=== PATIENT | female | born 1990 | race Caucasian/White ===

== ENCOUNTER 2025-05-16 16:32 | Emergency (ER) | payer BC, SELFPAY ==
[2025-05-16 16:32] VITALS: BP 135/94; PULSE 113; RESP 16; TEMP 36.8; O2SAT 100; BMI 29.1
--- NOTE | 2025-05-16 16:53 | ED.VIS.LOWEX ---
HPI History of Present Illness HPI Narrative: Patient presents with right ankle injury that occurred today. Patient states she inverted her ankle. Patient states she felt a pop. Patient states she noted some swelling immediately. Patient states that her pain is worse with elevation. Patient admits to some intermittent tingling. Patient describes her pain as burning sensation. Patient denies any head injury or loss of consciousness. Patient denies any other injuries. Patient states she took an oxycodone prior to arrival which is helping. Chief Complaint: Lower Extremity Injury Informant: patient Occured/Mechanism Comment: Inversion injury Onset/Context/Timing Onset: Today Context: Sudden Onset Timing: Continuous Quality of Pain: Burning Location: Right ankle Worsened by: Elevation Relieved by: Oxycodone Associated Symptoms Associated Symptoms: Positive for Parasthesia (Intermittent tingling); Negative for Weakness or Loss of Funtion [facility] Medical History (Updated 05/16/25 @ 19:[address] Eduardo Rico DO) ADHD Home Medications ?Medication ?Instructions ?Recorded ?Last Taken ?Type dextroamphetamine-amphetamine ER 25 mg PO DAILY 05/08/16 Unknown History 25 mg 24hr capsule,extend release (Adderall XR) prednisone 10 mg tablet 10 mg PO UD #33 tabs 05/08/16 Unknown Rx Allergy/AdvReac Type Severity Reaction Status Date / Time No Known Allergies Allergy Verified 05/16/25 16:34 Surgical History (Updated 05/16/25 @ 16:[address] Eduardo Rico DO) History of section Social History Smoking Status: Never smoker ROS ROS ED Constitutional Constitutional ED: Denies chills or fever(s) Eyes Eyes: Denies blurry vision or change in vision ENT ENT ED: Denies rhinorrhea or sore throat Cardiovascular Cardiovascular: Denies chest pain or palpitations Respiratory/Chest Respiratory/Chest: Denies cough or dyspnea Gastrointestinal Gastrointestinal: Denies nausea or vomiting Genitourinary Genitourinary ED: Denies dysuria or hematuria Musculoskeletal Musculoskeletal: Denies back pain or neck pain Integumentary Denies abscess or rash Neurologic Neurologic: Denies headache(s) or weakness Allergic/Immunologic Allergic/Immunologic ED: Denies mouth swelling or urticaria EXAM Physical Exam Const Vital Signs: 05/16/25 16:32 Temperature 98.3 F Temperature Source Oral Pulse Rate 113 H Respiratory Rate 16 Blood Pressure 135/94 H Blood Pressure Mean 107 Pulse Ox 100 Oxygen Delivery Method Room Air Positive well nourished and well developed General Appearance ED: well developed and NAD HEENT Reports moist mucous membranes normocephalic and atraumatic Neck full ROM and supple Extremity Extremity Narrative: There is tenderness, edema, and ecchymosis over the lateral aspect of the right ankle. There is no obvious deformity noted. Range of motion is limited in all motions of the right ankle secondary to pain. Pedal pulses are equal bilaterally. Capillary refills less than 2 seconds in all digits. Sensation was intact to light touch in all digits. Strength is 5/5 bilaterally in the lower extremities. There is no tenderness over the fifth metatarsal. There is no tenderness over the proximal fibula. Neuro oriented x3, CN's II-XII intact bilaterally, moves all extremities and no sensory deficits noted Sensorium / Orientation: alert Motor Exam: strength 5/5 throughout Psych mental status grossly normal MDM MDM MDM Narrative Medical decision making narrative: Differential diagnosis includes fracture, sprain, and contusion. X-rays of the right ankle will be obtained to assess for fracture. Radiography Diagnostic Testing: Clinical Impression(s) from Imaging Studies Ankle X-Ray 05/16/25 17:30 IMPRESSION: No acute fracture or dislocation. No significant degenerative changes. Scattered sclerosis versus sclerotic lesions throughout the distal tibia and fibula and calcaneus. No acute soft tissue abnormalities. No radiographic foreign body. Reading Location: [facility] X-rays of the right ankle were obtained. There are 3 views. On my independent interpretation, there is no acute fracture. There is mild soft tissue swelling noted. Radiologist also interpreted the x-rays and agrees. Treatment and Re-Evaluation Narrative: Patient was advised of her findings. Patient was given an Aircast. Patient was instructed to ice and elevate the right ankle. Patient was instructed take Tylenol or ibuprofen as needed for pain. Patient was instructed to follow-up with her primary care physician in 5 to 7 days. Patient was instructed to return if worse in any way. Patient understood and was agreeable with the plan. All questions were answered. Discharge Plan Triage Chief Complaint: Lower Extremity Injury ED Provider: Schwiger,Eduardo Dx/Rx/DC Orders Clinical Impression: Right ankle sprain, ADHD Instructions: ED Ankle Sprain (Adult) Prescriptions: No Action dextroamphetamine-amphetamine [Adderall XR] 25 MG capsule,extended release 24hr 25 mg PO DAILY prednisone 10 MG tablet 10 mg PO UD Qty: 33 0RF Rx Instructions: Take 4 tablets daily for 3 days, then 3 daily for 3 days, then 2 daily for 3 days, then 1 a day for 3 days then 1 QOD for 3 doses. Primary Care Provider: RADHA JACK Referrals: RADHA JACK [Other] - 5-7 Days [facility] Doctor,Out of [Non-Staff] - Print Language: Romansh Disposition Disposition: Home, Self Care
--- OUTSIDE RECORDS SUMMARY | 2025-05-16 17:07 | XMS RPT_ITS | CCD ---
Author Organization [facility] Care Team Providers Care Blood Or Blood Bank Technician Name Role Phone Serg Garibay Primary Care Provider Mel Nicholas MD Primary Care Provider MEL NICHOLAS Attending Unavailable SERG GARIBAY Primary Care Unavailable Serg Garibay MD Primary Care Provider RADHA DUDLEY Unavailable SERG GARIBAY Primary Care Unavailable Serg Garibay MD Primary Care Provider Radha Dudley MD Primary Care Provider Medications Current Medications Medication Drug Class(es) Dates Sig (Normalized) Sig (Original) acetaminophen 325 mg oral tablet (7 sources) Start: 05-11-2022 650 mg, Oral, EVERY 6 HOURS PRN, Starting on Sat05/11/22 at 0957, Until Discontinued, Pain Mild (1-3) Give in addition to any other pain medication ordered at same time for any pain indication. &nb sp;Maximum dose of acetaminophen is 4000mg from all sources in 24 hours. Alternate ibuprofen and acetaminophen every 3 hours. Start: 11-23-2019 take 325 mg by mouth every four hours 325 mg, Oral, EVERY 4 HOURS, First dose on 11/23/19 at 2000 Maximum dose of acetaminophen is 4000 mg from all sources in 24 hours. End: 05-12-2022 acetaminophen (TYLENOL) 500 MG tablet Take 500 mg by mouth as needed 0 05/12/2022 Discontinued (Stop Taking at Discharge) albuterol 0.83 mg/ml inhalation solution (2 sources) beta2-Adrenergic Agonist Start: 03-05-2024 End: 04-04-2024 albuterol (2.5 MG/3ML) 0.083% nebulizer solution Indications: Wheezing Take 3 mL (2.5 mg) by nebulization in the morning and 3 mL (2.5 mg) at noon and 3 mL (2.5 mg) in the evening. 270 mL 0 03/05/2024 04/04/2024 Active Start: 03-05-2024 End: 04-04-2024 take 2 puff(s) by inhalation every six hours as needed for wheezing albuterol 108 (90 Base) MCG/ACT inhaler Indications: Wheezing Inhale 2 puffs every 6 hours as needed for wheezing. 18 g 0 03/05/2024 04/04/2024 Active 24 hr amphetamine aspartate 5 mg / amphetamine sulfate 5 mg / dextroamphetamine saccharate 5 mg / dextroamphetamine sulfate 5 mg extended release oral capsule (20 sources) Central Nervous System Stimulant Start: 05-02-2023 End: 05-26-2023 take 1 capsule by mouth every twenty-four hours in the morning amphetamine-dextroamphetamine XR (Adderall XR) 20 MG 24 hr capsule Indications: Attention deficit hyperactivity disorder (ADHD), unspecified ADHD type Take 1 capsule (20 mg) by mouth in the morning. 30 capsule 0 05/27/2023 Active Start: 02-25-2023 End: 04-28-2023 take 1 capsule by mouth every twenty-four hours in the morning amphetamine-dextroamphetamine XR (Addera ll XR) 20 MG 24 hr capsule Indications: Attention deficit hyperactivity disorder (ADHD), unspecified ADHD type Take 1 capsule (20 mg) by mouth in the morning. 30 capsule 0 03/26/2023 04/28/2023 Discontinued (Reorder) Start: 12-28-2022 End: 01-27-2023 take 1 capsule by mouth once daily amphetamine-dextroamphetamine XR (ADDERA LL XR) 20 mg 24 hr capsule Indications: ADHD (attention deficit hyperactivity disorder), inattentive type Take 1 capsule by mouth once daily for 30 days. Do not start before December 28, 2022. 30 capsule 0 12/28/2022 01/27/2023 Active Start: 07-06-2022 End: 01-27-2023 take 1 capsule by mouth in the morning, then take 1 capsule by mouth every twenty-four hours amphetamine-dextroamphetamine XR (Addera ll XR) 20 MG 24 hr capsule Take 20 mg by mouth in the morning. 0 07/06/2022 01/27/2023 Active Start: 07-06-2022 End: 12-26-2022 take 1 capsule by mouth once daily amphetamine-dextroamphetamine XR (ADDERA LL XR) 20 mg 24 hr capsule Indications: ADHD (attention deficit hyperactivity disorder), inattentive type Take 1 capsule by mouth once daily for 30 days. 30 capsule 0 11/23/2022 12/26/2022 Discontinued Comment on above: Take 1 capsule by mo ut once daily for 7 days. Take 1 capsule by mo uth once daily for 30 days. Take 1 capsule by mo uth once daily for 30 days. Do not start before September 21, 2022. Take 1 capsule by mo ut once daily for 30 days. Do not start before October 21, 2022. Take 1 capsule by mo ut once daily for 30 days. Do not start before December 28, 2022. 12 hr dextromethorphan hydrobromide 30 mg / guaiFENesin 600 mg extended release oral tablet (1 source) Uncompetitive R-ojftdd-N-aspartate Receptor Antagonist, Sigma-1 Agonist Start: 03-05-20 End: 03-15-20 24 take 1 tablet by mouth in the morning, then take 1 tablet by mouth every twelve hours in the evening dextromethorphan-g uaiFENesin (Mucinex DM) 30-600 MG 12 hr tablet Indications: Subacute cough , Acute bronchitis, unspecified organism Take 1 tablet by mouth in the morning and 1 tablet in the evening. Do all this for 10 days. Do not crush, chew, or split.. 20 tablet 0 03/05/2024 03/15/2024 Active docusate sodium 100 mg oral capsule (3 sources) Start: 05-11-20 22 take 1 capsule by mouth twice daily docusate sodium (COLACE) 100 mg capsule Take 1 capsule by mouth 2 times daily 60 capsule 3 05/12/2022 Active Start: 11-23-2019 take 100 mg by mouth twice daily as needed for constipation 100 mg, Oral, 2 TIMES DAILY PRN, Constipation, Starting 11/23/19 at 1935 Do not crush or break. doxycycline hyclate 100 mg oral capsule (1 source) Tetracycline-class Drug Start: 03-05-2024 End: 03-15-2024 doxycycline (Vibramycin) 100 MG capsule Indications: Subacute cough , Acute bronchitis, unspecified organism Take 1 capsule (100 mg) by mouth 2 times daily for 10 days. Take with at least 8 ounces (large glass) of water, do not lie down for 30 minutes after 20 capsule 0 03/05/2024 03/15/2024 Active ferrous sulfate 325 mg oral tablet (3 sources) Start: 05-11-2022 take 1 tablet by mouth twice daily ferrous sulfate (IRON 325) 325 (65 Fe) MG tablet Take 1 tablet by mouth 2 times daily 180 tablet 1 05/12/2022 Active Start: 11-23-2019 take 325 mg by mouth twice daily at mealtime 325 mg, Oral, 2 TIMES DAILY WITH MEALS, First dose on Sat11/23/19 at 2000 Start if Hgb less than 10. HYDROmorphone (DILAUDID) injection 0.25 mg (1 source) Start: 11-24-2019 HYDROmorphone (DILAUDID) injection 0.25 mg ibuprofen 600 mg oral tablet (2 sources) Nonsteroidal Anti-inflammatory Drug Start: 05-11-2022 take 1 tablet by mouth every six hours as needed for pain ibuprofen (ADVIL;MOTRIN) 600 MG tablet Take 1 tablet by mouth every 6 hours as needed for Pain 60 tablet 0 05/12/2022 Active lanolin 1000 mg/ml topical cream (2 sources) Start: 05-11-2022 Topical, EVERY 1 HOUR PRN, Dry Skin, nipple discomfort, Starting on Sat05/11/22 at 0957, Start: 11-23-2019 Topical, EVERY 1 HOUR PRN, Dry Skin, nipple discomfort, Starting 11/23/19 at 1935, Mom to be Belts MISC (1 source) Start: 09-07-2019 Mom to be Belt s MISC by Does not apply route 1 each 0 09/07/2019 Active 1 ml nalbuphine hydrochloride 10 mg/ml injection (1 source) Opioid Agonist/Antagonist Start: 11-23-2019 nalbuphine (NUBAIN) injection 5 mg 1 ml naloxone hydrochloride 0.4 mg/ml injection (1 source) Opioid Antagonist Start: 11-23-2019 naloxone (NA RCAN) injection 0.4 mg oxyCODONE hydrochloride 5 mg oral tablet (4 sources) Opioid Agonist Start: 05-12-2022 End: 05-17-2022 oxyCODONE (ROXICODONE) 5 MG immediate release tablet Indications: S/P section Take 1 tablet by mouth every 6 hours as needed for Pain for up to 5 days. Intended supply: 5 days. Take lowest dose possible to manage pain 20 tablet 0 05/12/2022 05/17/2022 Active Start: 05-11-2022 oxyCODONE (RADHA ICODONE) immediate release tablet 5 mg Start: 11-24-2019 End: 12-01-2019 take 1 tablet by mouth every six hours as needed for pain oxyCODONE (ROXICODONE) 5 MG immediate release tablet Indications: S/P Take 1 tablet by mouth every 6 hours as needed for Pain for up to 7 days. 28 tablet 0 11/24/2019 12/01/2019 Active Start: 11-24-2019 oxyCODONE (RADHA ICODONE) immediate release tablet 5 mg oxytocin (PITOCIN) 30 units in 500 mL infusion (2 sources) Start: 11-23-2019 125 mL/hr, Int ravenous, at 125 mL/hr, CONTINUOUS, Starting 11/23/19 at 1730 For Post Use Only To follow initial bolus immediately after delivery. Verify patient received oxytocin 250cc bolus at delivery followed by an additional 250ccover 1 hour (250cc/hr). Give after delivery of placenta. Start: 11-23-2019 End: 11-23-2019 250 mL/hr, Intravenous, at 2 50 mL/hr, CONTINUOUS, Starting 11/23/19 at 1345 For Post Use Only Give after delivery of placenta. Oxytocin 250cc is administered as an IV bolus at delivery followed by an additional 250cc over 1 hour. predniSONE 20 mg oral tablet (1 source) Start: 03-05-2024 End: 03-10-2024 take 1 tablet by mouth once daily predniSONE (Deltasone) 20 MG tablet Indications: Wheezing Take 1 tablet (20 mg) by mouth daily for 5 days. 5 tablet 0 03/05/2024 03/10/2024 Active MV & Min w/FA-DHA ( GUMMIES PO) (1 source) MV & Mi n w/FA-DHA ( GUMMIES PO) Take by mouth 0 Active Vit w/Me-Wzxvijnbi-NP (PNV PO) (4 sources) Vit w/Lu-Ffpolqigu-SR (PNV PO) Take by mouth 0 Active 1000 ml sodium chloride 9 mg/ml injection (5 sources) Start: 05-11-2022 IntraVENous, a t 5-250 mL/hr, PRN, if patient receiving piggyback infusions and maintenance fluids are not ordered OR KVO fluids to protect IV site / prevent frequent line interruptions/ long duration, Starting on Sat05/11/22 at 0957 For piggyback infusion, administer at same rate as piggyback for a total of 25 mL. Enter 25 mL into dose field and piggyback rate into rate field of order. If piggyback is infusing at a rate less than 100 mL/hr, enter 25 mL into dose field and 100 mL/hr into rate field of order. For KVO fluids, enter rate of 20 mL/hr or less into rate field of order. Start: 05-11-2022 take 1 dose intraven ously twice daily 5-40 mL, IntraVENous, EVERY 12 HOURS SCHEDULED (2 times per day), First dose on Sat05/11/22 at 1015, Until Discontinued For Line Patency: Peripheral IV = 5 mL; Midline or Central Line = 10 mL/lumen. If following IV push medication, administer flush at same rate as the IV push. Flush volume is determined by type of infusion therapy being given. For non-viscous solutions use: Peripheral IV = 5 mL Midline or Central Line = 10 mL/lumen For viscous solutions (i.e. blood components, parenteral nutrition, contrast media, or after obtaining blood sample) use: Peripheral IV = 10 mL Midline or Central Line = 20 mL/lumen Start: 05-11-2022 take 5-40 mL intrave nously once as needed 5-40 mL, IntraVENous, PRN, Starting on Sat05/11/22 at 0957, Until Discontinued, Line Care, After every IV line use For Line Patency: Peripheral IV = 5 mL; Midline or Central Line = 10 mL/lumen. If following IV push medication, administer flush at same rate as the IV push. Flush volume is determined by type of infusion therapy being given. For non-viscous solutions use: Peripheral IV = 5 mL Midline or Central Line = 10 mL/lumen For viscous solutions (i.e. blood components, parenteral nutrition, contrast media, or after obtaining blood sample) use: Peripheral IV = 10 mL Midline or Central Line = 20 mL/lumen Start: 11-23-2019 10 mL, Intrave nous, EVERY 12 HOURS SCHEDULED (2 times per day), First dose on Sat11/23/19 at 2100, Start: 11-23-2019 take 10 mL intravenously once 10 mL, Intravenous, PRN, Line Care, Starting Sat11/23/19 at 1935 After every IV line use Completed/Discontinued Medications Medication Drug Class(es) Dates Sig (Normalized) Sig (Original) acetaminophen 325 mg / butalbital 50 mg / caffeine 40 mg oral tablet (12 sources) Barbiturate, Central Nervous System Stimulant, Methylxanthine Start: 08-21-2021 End: 12-26-2022 take 1 tablet by mouth every six hours as needed for headache and headache acetaminophen 325 mg-caffeine 40 mg-butalbital 50 mg (FIORICET) per tablet Indications: Headache, unspecified headache type Take 1 tablet by mouth every 6 hours as needed. 40 tablet 0 08/21/2021 12/26/2022 Discontinued Comment on above: Take 1 tablet by carly every 6 hours as needed. calcium chloride 0.0014 meq/ml / potassium chloride 0.004 meq/ml / sodium chloride 0.103 meq/ml / sodium lactate 0.028 meq/ml injectable solution (4 sources) Start: 05-11-2022 End: 05-11-2022 1,000 mL, IntraVENous, at 1,000 mL/hr, Administer over 1 Hours, ONCE, On Sat05/11/22 at 0445, For 1 dose Labor and Delivery. &nb sp;Administer bolus one hour prior to surgery. Labor and Delivery (Signed and Held) Start: 05-11-2022 End: 05-11-2022 IntraVENous, at 125 mL/hr, C ONTINUOUS, Starting on Sat05/11/22 at 0445, Labor and Delivery (Signed and Held) Start: 11-23-2019 End: 11-23-2019 1,000 mL, Intravenous, at 1, 000 mL/hr, Administer over 1 Hours, ONCE, 11/23/19 at 1345, For 1 dose Labor and Delivery. Administer bolus one hour prior to surgery. Labor and Delivery (Signed and Held) Start: 11-23-2019 End: 11-23-2019 Intravenous, at 125 mL/hr, C ONTINUOUS, Starting Sat11/23/19 at 1345, Labor and Delivery (Signed and Held) ceFAZolin 2000 mg injection (2 sources) Cephalosporin Antibacterial Start: 05-11-2022 End: 05-11-2022 2,000 mg, IntraVENous, ONCE, 1 dose, On Sat05/11/22 at 0445 Antimicrobial Indications: Surgical Prophylaxis Labor and Delivery (Signed and Held) Start: 11-23-2019 End: 11-23-2019 2 g, Intravenous, ONCE, 1 do se, 11/23/19 at 1345, Labor and Delivery (Signed and Held) citric acid 66.8 mg/ml / sodium citrate 100 mg/ml oral solution (2 sources) Calculi Dissolution Agent, Anti-coagulant Start: 05-11-2022 End: 05-11-2022 take 1 dose by mouth once 30 mL, Oral, ONCE, 1 dose, On Sat05/11/22 at 0245 Give prior to epidural placement. Labor and Delivery Start: 11-23-2019 End: 11-23-2019 take 30 mL by mouth once 30 mL, Oral, ONCE, Mon 11/23 at 1315, For 1 dose Give prior to epidural placement. Labor and Delivery 1 ml diphenhydrAMINE hydrochloride 50 mg/ml cartridge (6 sources) Histamine-1 Receptor Antagonist Start: 05-11-2022 25 mg, IntraVENous, EVERY 6 HOURS PRN, Starting on Sat05/11/22 at 0957, Until Discontinued, Itching, Hives, Start: 11-23-2019 25 mg, Intrave nous, EVERY 6 HOURS PRN, Itching, Hives, Starting 11/23/19 at 1935, take 1 tablet by carly th once daily as needed diphenhydrAMINE (BENADRYL) 25 MG tablet Take 25 mg by mouth nightly As needed 0 Active 0.6 ml enoxaparin sodium 100 mg/ml prefilled syringe (2 sources) Low Molecular Weight Heparin Start: 05-11-2022 inject 60 mg by subcutaneous injection once daily 60 mg, SubCUTAneous, DAILY, First dose on Sat05/11/22 at 2000, Until Discontinued Indication of Use: Prophylaxis-DVT/PE Start: 11-24-2019 enoxaparin (LO VENOX) injection 60 mg 1 ml ketorolac tromethamine 30 mg/ml cartridge (2 sources) Nonsteroidal Anti-inflammatory Drug, Cyclooxygenase Inhibitor Start: 05-11-2022 End: 05-12-2022 take 1 dose intravenously once daily Ketorolac is contraindicated in patients with advanced renal impairment and in patients at risk of renal failure due to volume depletion. For 65 years of age and older OR weight less than 50 kg, use 15 mg IV every 6 hours; MAX dose: 60 mg/day. Dose greater than 30 mg must be administered via intramuscular route. Do not administer for more than 5 days. 30 mg, IntraVENous, EVERY 6 HOURS, 4 doses, First dose on Sat05/11/22 at 1430, Last dose on Sat05/12/22 at 0830 Discontinue when able to take PO ibuprofen. Start: 05-11-2022 End: 05-11-2022 inject 1 dose by intramuscular injection once daily Ketorolac is contraindicated in patients with advanced renal impairment and in patients at risk of renal failure due to volume depletion. For 65 years of age and older OR weight less than 50 kg, use 15 mg IV every 6 hours; MAX dose: 60 mg/day. Dose greater than 30 mg must be administered via intramuscular route. Do not administer for more than 5 days. 60 mg, IntraMUSCular, ONCE, 1 dose, On Sat05/11/22 at 0815 Postop in recovery room Post Delivery 2 ml metoclopramide 5 mg/ml prefilled syringe (1 source) Dopamine-2 Receptor Antagonist Start: 05-11-2022 End: 05-11-2022 metoclopramide (REGLAN) injection 10 mg Start: 05-11-2022 End: 05-11-2022 metoclopramide (REGLAN) inje ction 10 mg 2 ml ondansetron 2 mg/ml injection (2 sources) Serotonin-3 Receptor Antagonist Start: 05-11-2022 4 mg, IntraVENous, EVERY 6 HOURS PRN, Starting on Sat05/11/22 at 0957, Until Discontinued, Nausea, Start: 11-23-2019 4 mg, Intraven ous, EVERY 6 HOURS PRN, Nausea, Starting Sat11/23/19 at 1935, vitamin 27-1 MG tablet 1 tablet (2 sources) Start: 05-11-2022 take 1 tablet by mouth once daily 1 tablet, Oral, DAILY, First dose on Sat05/11/22 at 1015, Until Discontinued Begin when normal bowel activity resumes. Start: 11-23-2019 take 1 tablet by carly th once daily 1 tablet, Oral, DAILY, First dose on Sat11/23/19 at 2000 Begin when normal bowel activity resumes. simethicone 80 mg chewable tablet (2 sources) Start: 05-11-2022 take 80 mg by mouth every six hours as needed 80 mg, Oral, EVERY 6 HOURS PRN, Starting on Sat05/11/22 at 0957, Until Discontinued, Cramping, Flatulence, Start: 11-23-2019 take 80 mg by mouth every six hours as needed 80 mg, Oral, EVERY 6 HOURS PRN, Cramping, Flatulence, Starting Sat11/23/19 at 1935, Problems Active Problems Problem Classification Problem Date Documented Date Episodic/Chronic Acute bronchitis (1 source) Acute bronchitis; Translations: [Acute bronchitis, unspecified] 03-05-2024 Episodic Attention-deficit conduct and disruptive behavior disorders (20 sources) Attention deficit hyperactivity disorder, predominantly inattentive type; Translations: [Attention-deficit hyperactivity disorder, predominantly inattentive type] Onset: 08-31-2018 05-25-2019 Chronic Attention-deficit, conduct, and disruptive behavior disorders (6 sources) Attention deficit hyperactivity disorder; Translations: [Attention-deficit hyperactivity disorder, unspecified type] Chronic Attention-deficit, conduct, and disruptive behavior disorders (2 sources) Attention-deficit hyperactivity disorder, unspecified type; Translations: [Attention-deficit hyperactivity disorder, unspecified type] Onset: 12-28-2022 Chronic Coagulation and hemorrhagic disorders (20 sources) Platelet storage pool defect; 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] Onset: 06-10-2019 Resolved: 01-04-2020 05-25-2019 Chronic Essential hypertension (1 source) Transient hypertension 11-24-2019 Chronic Hypertension complicating ; childbirth and the puerperium (4 sources) Hypertension AND/OR vomiting complicating childbirth AND/OR puerperium Onset: 11-19-2019 Chronic Other complications of (2 sources) Obesity; Translations: [Obesity complicating , unspecified trimester] Onset: 11-16-2021 Chronic Other complications of (2 sources) Uterine size for dates discrepancy; Translations: [Uterine size-date discrepancy, third trimester] Onset: 03-16-2022 Episodic Other complications of (2 sources) Disease caused by 2019-nCoV; Translations: [Other viral diseases complicating , second trimester] Onset: 01-05-2022 Episodic Other lower respiratory disease (1 source) Wheezing; Translations: [Wheezing] 03-05-2024 Episodic Other lower respiratory disease (1 source) Cough; Translations: [Subacute cough] 03-05-2024 Episodic Unclassified (6 sources) Patient encounter status; Translations: [ care, antepartum] Onset: 06-03-2019 06-03-2019 Past or Other Problems Problem Classification Problem Date Documented Da te Episodic/Chronic Abdominal pain (5 sources) Abdominal pain in ; Translations: [Other specified related conditions, second trimester] Resolved: 10-07-2019 09-07-2019 Episodic Cardiac dysrhythmias (5 sources) Tachycardia; Translations: [Tachycardia, unspecified] Onset: 10-07-2019 Resolved: 01-04-2020 10-07-2019 Episodic Hypertension complicating ; childbirth and the puerperium (1 source) Hypertension AND/OR vomiting complicating childbirth AND/OR puerperium; Translations: [Gestational [-induced] hypertension without significant proteinuria, unspecified trimester] Onset: 11-19-2019 Resolved: 01-04-2020 01-04-2020 Episodic Malposition; malpresentation (3 sources) Breech presentation; Translations: [Maternal care for breech presentation, not applicable or unspecified] Resolved: 11-16-2021 Episodic Other circulatory disease (8 sources) Transient hypertension; Translations: [Elevated blood-pressure reading, without diagnosis of hypertension] Onset: 11-24-2019 11-24-2019 Episodic Other complications of ; puerperium affecting management of mother (2 sources) Indication for care AND/OR intervention in labor AND/OR delivery Onset: 11-23-2019 Episodic Other complications of ; puerperium affecting management of mother (1 source) Delivery finding; Translations: [Complication of labor and delivery, unspecified] Onset: 11-23-2019 Resolved: 11-16-2021 11-16-2021 Episodic Other complications of (9 sources) Reduced movement; Translations: [Decreased movements, second trimester, not applicable or unspecified] Resolved: 11-19-2019 09-07-2019 Episodic Other inflammatory condition of skin (11 sources) Itching ; Translations: [Pruritus, unspecified] Onset: 10-23-2019 10-23-2019 Episodic Other and delivery including normal (5 sources) Patient encounter status; Translations: [Encounter for supervision of normal , unspecified, unspecified trimester] Onset: 06-03-2019 Resolved: 01-04-2020 Episodic Other screening for suspected conditions (not mental disorders or infectious disease) (2 sources) Encounter for screening for lipoid disorders; Translations: [Encounter for screening for lipoid disorders] Onset: 12-28-2022 Episodic Polyhydramnios and other problems of amniotic cavity (1 source) Polyhydramnios; Translations: [Polyhydramnios, third trimester, not applicable or unspecified] Onset: 03-30-2022 Resolved: 04-27-2022 04-27-2022 Episodic Results Test Name Value Interpretation Reference Range Facility CBC (H/H, RBC, INDICES, WBC, PLT)on 04-03-2025 HEMATOCRIT Normal [facility] Comment on above: Performed By: #### 1 [id number], [id number], 899, 1759 #### [facility] [address], [address] [place] [id number] Head Bucker: Will Clayton MD HEMOGLOBIN Normal [facility] Comment on above: Performed By: #### 1 [id number], [id number], 899, 1759 #### [facility] [address], [address] [place] [id number] Head Bucker: Will Clayton MD MCH Normal [facility] Comment on above: Performed By: #### 1 [id number], 66901, 899, 1759 #### [facility] of [address], [address] [place] [address] Head Bucker: Will Clayton MD [facility] Normal [facility] Comment on above: Performed By: #### 1 [id number], [id number], 899, 1759 #### [facility] of [place] [address] [place] [address] Head Bucker: Will Clayton MD [facility] Normal [facility] Comment on above: Performed By: #### 1 [id number], 47217, 899, 1759 #### [facility] of [place] [address] Head Bucker: Will Clayton MD MPV Normal [facility] Comment on above: Performed By: #### 1 [id number], 40658, 899, 1759 #### [facility] of [place] [address] Head Bucker: Will Clayton MD PLATELET COUNT Normal [facility] Comment on above: Performed By: #### 1 [id number], [id number], 899, 1759 #### [facility] of [place] [address] Head Bucker: Will Clayton MD W Normal [facility] Comment on above: Performed By: #### 1 [id number], 97709, 899, 1759 #### [facility] of [place] [address] [place] [address] Head Bucker: Will Clayton MD RED BLOOD CELL COUNT [facility] Comment on above: Performed By: #### 1 [id number], 70939, 899, 1759 #### [facility] of [place] [address] [place] [address] Head Bucker: Will Clayton MD WHITE BLOOD CELL COUNT [facility] Comment on above: Performed By: #### 1 [id number], 51153, 899, 1759 #### [facility] of [address], [address] [place] [address] Head Bucker: Will Clayton MD [facility] 04-03-2025 Albumin [Mass/Vol] 4.7 g/dL Normal 3.6-5.1 [facility] Comment on above: Performed By: #### 1 [id number], 54153, 899, 1759 #### [facility] of [address], [address] [place] [address] Head Bucker: Will Clayton MD Albumin/Globulin [Mass ratio] 1.9 {ratio} Normal 1.0-2.5 [facility] Comment on above: Performed By: #### 1 [id number], 14139, 89, 1759 #### [facility] of [address], [address] [place] [address] Head Bucker: Will Clayton MD ALP [Catalytic activity/Vol] 48 U/L Normal 31-125 [facility] Comment on above: Performed By: #### 1 4852, 69218, 89, 1759 #### [facility] of [address], [address] [place] [address] Head Bucker: Will Clayton MD ALT [Catalytic activity/Vol] 7 U/L Normal 6-29 [facility] Comment on above: Performed By: #### 1 4852, 17414, 89, 1759 #### [facility] of [place] [address] Head Bucker: Will Clayton MD AST [Catalytic activity/Vol] 8 U/L Low 10-30 [facility] Comment on above: Performed By: #### 1 4852, 36472, 89, 1759 #### [facility] of [place] [address] Head Bucker: Will Clayton MD Bilirubin [Mass/Vol] 0.3 mg/dL Normal 0.2-1.2 [facility] Comment on above: Performed By: #### 1 4852, 96521, 899, 1759 #### [facility] of [place] [address] Head Bucker: Will Clayton MD BUN/CREATININE RATIO SEE NOTE: Normal 6-22 [facility] Comment on above: Result Comment: Not Reported: BUN and Creatinine are within reference range. Performed By: #### 1 4852, 50493, 899, 1759 #### [facility] [place] [address] Head Bucker: Will Clayton MD Calcium [Mass/Vol] 9.8 mg/dL Normal 8.6-10.2 [facility] Comment on above: Performed By: #### 1 4852, 85717, 89, 1759 #### [facility] [place] [address] Head Bucker: Will Clayton MD Chloride [Moles/Vol] 107 mmol/L Normal 98-[address] [facility] Comment on above: Performed By: #### 1 4852, 60324, 89, 1759 #### [facility] [place] [address] Head Bucker: Will Clayton MD CO2 [Moles/Vol] 26 mmol/L Normal 20-32 [facility] Comment on above: Performed By: #### 1 4852, 69280, 89, 1759 #### [facility] of [place] [address] Head Bucker: Will Clayton MD Creatinine [Mass/Vol] 0.76 mg/dL Normal 0.50-0.[address] [facility] [address] [facility] Comment on above: Performed By: #### 1 4852, 74763, 899, 1759 #### [facility] of [place] [address] Head Bucker: Will Clayton MD GFR/1.73 sq M.predicted among non-blacks MDRD (S/P/Bld) [Vol rate/Area] 106 mL/min/{1.73_m2} Normal > OR = 60 [facility] Comment on above: Performed By: #### 1 4852, 87161, 89, 175 #### [facility] of [place] [address] Head Bucker: Will Clayton MD Globulin (S) [Mass/Vol] 2.5 g/dL Normal 1.9-3.7 [facility] Comment on above: Performed By: #### 1 4852, 78123, 89, 175 #### [facility] of [address], [address] [place] [address] Head Bucker: Will Clayton MD Glucose [Mass/Vol] 97 mg/dL Normal 65-99 [facility] Comment on above: Result Comment: Fasting reference interval Performed By: #### 1 4852, 64309, , 175 #### [facility] of [place] [address] Head Bucker: Will Clayton MD Potassium [Moles/Vol] 4.4 mmol/L Normal 3.5-5.[address] [facility] Comment on above: Performed By: #### 1 4852, 31884, , 175 #### [facility] [place] [address] Head Bucker: Will Clayton MD Protein [Mass/Vol] 7.2 g/dL Normal 6.1-8.1 [facility] Comment on above: Performed By: #### 1 4852, 05142, , 175 #### [facility] of [place] [address] Head Bucker: Will Clayton MD Sodium [Moles/Vol] 139 mmol/L Normal 135-146 [facility] Comment on above: Performed By: #### 1 4852, 28365, 89, 175 #### [facility] of [place] [address] Head Bucker: Will Clayton MD Urea nitrogen [Mass/Vol] 12 mg/dL Normal 7-25 [facility] Comment on above: Performed By: #### 1 4852, 87617, 899, 1759 #### [facility] [address], [address] [place] [address] Head Bucker: Will Clayton MD LIPID PANEL WITH REFLEX TO Yaw PEDRO LDLon 04-03-2025 Cholesterol [Mass/Vol] 162 mg/dL Normal <200 [facility] Comment on above: Order Comment: 0; 0; 0; 0 Performed By: #### 1 4852, 88231, 899, 1759 #### [facility] [address], [address] [place] [address] Head Bucker: Will Clayton MD Cholesterol in HDL [Mass/Vol] 41 mg/dL Low > OR = 50 [facility] Comment on above: Order Comment: 0; 0; 0; 0 Performed By: #### 1 4852, 07112, 899, 1759 #### [facility] [place] [address] Head Bucker: Will Clayton MD Cholesterol in LDL [Mass/Vol] 104 mg/dL High [facility] Comment on above: Order Comment: 0; 0; 0; 0 Result Comment: Refe rence range: <100 Desirable range <100 mg/dL for primary prevention; <70 mg/dL for patients with CHD or diabetic patients with > or = 2 CHD risk factors. LDL-C is now calculated using the Humberto-Carlos calculation, which is a validated novel method providing better accuracy than the Friedewald equation in the estimation of LDL-C. Humberto GOULD et al. CONRAD. 2013;310(19): 1235-2750 (http://education.Taskmit.LOANZ/faq/HES292) Performed By: #### 1 4852, 13568, 899, 1759 #### [facility] [place] [address] Head Bucker: Will Clayton MD Cholesterol.total/Leticia sterol in HDL [Mass ratio] 4.0 {ratio} Normal <5.0 [facility] Comment on above: Order Comment: 0; 0; 0; 0 Performed By: #### 1 4852, 64821, 899, 1759 #### [facility] [address], [address] [place] [address] Head Bucker: Will Clayton MD NON HDL CHOLESTEROL 121 mg/dL (calc) Normal <130 [facility] Comment on above: Order Comment: 0; 0; 0; 0 Result Comment: For patients with diabetes plus 1 major ASCVD risk factor, treating to a non-HDL-C goal of <100 mg/dL (LDL-C of <70 mg/dL) is considered a therapeutic option. Performed By: #### 1 4852, 61333, 71, 1279 #### [facility] [address], [address] [place] [address] Head Bucker: Will Clayton MD Triglyceride [Mass/Vol] 84 mg/dL Normal <150 [facility] Comment on above: Order Comment: 0; 0; 0; 0 Performed By: #### 1 4852, 96660, 07, 5585 #### [facility] [address], [address] [place] [address] Head Bucker: Will Clayton MD TSHon 04-03-2025 TSH Qn 0.70 m[IU]/L Normal [facility] Comment on above: Result Comment: Refe rence Range > or = 20 Years 0.40-4.50 Ranges First trimester 0.26-2.66 Second trimester 0.55-2.73 Third trimester 0.43-2.91 Performed By: #### 1 4852, 22786, 99, 1464 #### [facility] [address], [address] [place] [address] Head Bucker: Will Clayton MD 36on 05-01-[address] Dudley is out of the office today. Will be back tomorrow. Message has been forwarded to him. Patient does have appt with [facility] but can not see them until May 13 [facility] 36 Reference 05/01/2023 Parachutet message Name of caller: Claire Ramos Contact phone number: [phone] Relationship to Patient: Patient Provider: Radha Dudley Practice: [facility] Chief Complaint/Reason for Call: Patient following up on 05/01/[address] Dudley be able to call in the Adderal? She is concerned it won't be called in. Please call STEVAN. Also copying Beth Medina since she sent Ummitech message to patient. Best time of day caller can be reached: any Patient advised that office/PCP has 24-48 business hours to return their call: No [facility] 36 Message released to patient as written. Patient's further questions if applicable: pt reported that she had initial consult with them yesterday but reported that it would be 2 weeks until she is able to be seen by PA for refill Were all questions from office addressed or relayed to the patient from encounter: Yes [address] 04-30-2023 36 Has she looked into any of the other psychiatry options provided? Does she have an appointment scheduled with them? [facility] [phone] also virtual visits [facility] [phone] Dr Ochoa [phone] 03-26-2023 36 Does she have an appointment with psychiatry yet? Thanks [address] 03-07-2023 36 My chart [facility] (PSYAGR) CLAIRE RAMOS ([id number]) 1990 F Date Time Provider Department 12/31/22 PABLO GILES PSYAGR During your visit today, we recorded the following information about you: Allison Canela 12/31/2022 3:24 PM Signed Called patient and left voicemail regarding scheduling referral for Neuropsychological testing. Allergies As of Date: 12/31/2022 (No Known Allergies) Date Reviewed: 12/19/2022 Reviewed by: Mel Nicholas MD - Fully Assessed Reason for Visit: Behavioral Health Appointment [7908] Prescriptions as of 12/31/2022 - amphetamine-dextroamp hetamine XR (ADDERALL XR) 20 mg 24 hr capsule Take 1 capsule by mouth once daily for 30 days. Do not start before December 28, 2022. 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] 06/10/2019 Encounter Status:Closed by ALLISON CANELA on 12/31/22 [facility] Office Visiton 12-28-2022 Follow-up visit [id number] Jammie Ramos 1990 F Date Provider Department Center 12/28/2022 [id number]-OKHYOAZARADHA DUDLEY [facility] Family History Problem Relation Age of Onset Clotting disorder Maternal Grandmother Cancer Paternal Grandfather Diabetes Father Clotting disorder Mother Eclampsia Mother Ovarian cancer Neg Hx Breast cancer Neg Hx Colon cancer Neg Hx Family Status - Relation Status Age at Maternal Grandmother Paternal Grandfather Father Mother Neg Hx Level of Service:01641 MA INITIAL PREVENTIVE MEDICINE NEW PT AGE 18-39YRS Reason for Visit and Comments: New Patient [542] - Est Care- [facility] Progress Noteon 12-28-2022 Progress Note [facility] [address] [facility] [address] [address] [facility] [address] Dept: [phone] Dept Loc: [phone] Visit type: New patient Reason for Visit: New Patient (Est Care- ) Assessment and Plan 1. Attention deficit hyperactivity disorder (ADHD), unspecified ADHD type [place] [facility] [place] - Make referral to psychiatry for further evaluation and treatment 2. Healthcare maintenance - Comprehensive metabolic panel - CBC 3. Encounter for screening for lipid disorder - Lipid panel Follow up if symptoms worsen or fail to improve. Subjective HPI Claire is a 32-year-old woman with past medical history of ADHD who presents today to [facility]. Regarding ADHD: Reports that she was diagnosed with ADHD in second grade. Has been taking medications to help control her symptoms since. Has been on Adderall for a long time. Reports that symptoms are controlled when she is taking this. She had to stop during her 2 pregnancies and reports that she struggled with her ADHD symptoms during those times. Her previous PCP retired and was her prescriber for this medication. She is now looking for a new prescriber. Discussed age appropiate vaccinations. Discussed age appropriate screening. Discussed age appropriate cancer screening. Discussed lifestyle intervention: healthy diet and exercise. Review of Systems Constitutional: Negative for chills and fever. Respiratory: Negative for cough and shortness of breath. Cardiovascular: Negative for chest pain and leg swelling. Gastrointestinal: Negative for abdominal pain, blood in stool, constipation, diarrhea, nausea and vomiting. Musculoskeletal: Negative for arthralgias and myalgias. Neurological: Negative for light-headedness and headaches. No Known Allergies Outpatient Medications Prior to Visit Medication Sig Dispense Refill amphetamine-dextroamp hetamine XR (Adderall XR) 20 MG 24 hr capsule Take 20 mg by mouth in the morning. No facility-administered medications prior to visit. 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 Endometriosis had cysts on ovarys Hypertension gestational hypertension Migraines Storage pool disease (HCC) Social History Tobacco Use Smoking status: Never Smokeless tobacco: Never Substance Use Topics Alcohol use: Not Currently Past Surgical History: Procedure Laterality Date SECTION (HISTORICAL) x 2 WISDOM TOOTH EXTRACTION 2010 Family History Problem Relation Name Age of Onset Clotting disorder Maternal Grandmother Cancer Paternal Grandfather Diabetes Father Clotting disorder Mother Eclampsia Mother Ovarian cancer Neg Hx Breast cancer Neg Hx Colon cancer Neg Hx Objective BP 125/88 (BP Location: Left arm, Patient Position: Sitting, BP Cuff Size: Large adult) Pulse 97 Temp 36.8 ?C (98.3 ?F) Ht 5' 2 (1.575 m) Wt 198 lb 6.4 oz (90 kg) LMP 12/14/2022 (Approximate) SpO2 99% BMI 36.29 kg/m? Physical Exam Constitutional: General: She is not in acute distress. Appearance: Normal appearance. Cardiovascular: Rate and Rhythm: Normal rate and regular rhythm. Pulses: Normal pulses. Heart sounds: Normal heart sounds. No murmur heard. No gallop. Pulmonary: Effort: Pulmonary effort is normal. Breath sounds: Normal breath sounds. No wheezing. Abdominal: General: Bowel sounds are normal. Palpations: Abdomen is soft. Tenderness: There is no abdominal tenderness. There is no guarding or rebound. Musculoskeletal: Right lower leg: No edema. Left lower leg: No edema. Neurological: Mental Status: She is alert. Radha Dudley MD [facility] FELICIACLAIRE ([id number]) 1990 F Date Time Provider Department 12/25/22 PABLO GILES During your visit today, we recorded the following information about you: Allison Canela 12/25/2022 11:31 AM Signed Called patient and left voicemail to schedule referral for Neuropsychology. Allergies As of Date: 12/25/2022 (No Known Allergies) Date Reviewed: 12/19/2022 Reviewed by: Mel Nicholas MD - Fully Assessed Reason for Visit: Behavioral Health Appointment [9973] Prescriptions as of 12/25/2022 - amphetamine-dextroamp hetamine XR (ADDERALL XR) 20 mg 24 hr capsule Take 1 capsule by mouth once daily for 30 days. - acetaminophen 325 mg-caffeine 40 mg-butalbital 50 mg (FIORICET) per tablet Take 1 tablet by mouth every 6 hours as needed. 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 Pt states she was advised by Dr. Nicholas to see if Dr. Garibay's office will refill amphetamine-dextroamp hetamine XR (ADDERALL XR) 20 mg 24 hr capsule. That office is no longer able to do refills since pt established care here. Pt is requesting a refill on amphetamine-dextroamp hetamine XR (ADDERALL XR) 20 mg 24 hr capsule since she has a couple days left until she can get her testing done. Please advise. Bernarda Galvan Mel Nicholas MD 12/26/2022 4:14 PM Signed I have sent a script for Adderall. Pt is advised to follow up with Psychology for testing. She was reached by them yesterday to schedule an appointment. She cannot abruptly stop using it due to halfway usage through her previous PCP, Dr. Garibay. But she needs to undergo neuropsychology testing prior to continuation of treatment plan. PDMP website checked and validated. All prescriptions have been APPROPRIATELY filled. No suspicious activity was identified. 12/26/2022 by MD Deepa Cosme MA 12/26/2022 4:32 PM Signed Left detailed message explaining that Dr. Nicholas sent the prescription but she will need to schedule for her neuropsychology testing STEVAN. Advised that a message was left for the patient by the psych department yesterday and that testing will be required for continuation of treatment. Deepa Garcia MA Allergies As of Date: 12/24/2022 (No Known Allergies) Date Reviewed: 12/19/2022 Reviewed by: Mel Nicholas MD - Fully Assessed Reason for Visit: Refill Request [94] Cmt: amphetamine-dextroamp hetamine XR (ADDERALL XR) 20 mg 24 hr capsule Visit Diagnosis:ADHD (attention deficit hyperactivity disorder), inattentive type [F90.0] Order(s):[START ON 12/28/2022] amphetamine-dextroamp hetamine XR (ADDERALL XR) 20 mg 24 hr capsuleTake 1 capsule by mouth once daily for 30 days. Do not start before December 28, 2022.Disp: 30 capsuleRfl: 0 Prescriptions as of 12/27/2022 - amphetamine-dextroamp hetamine XR (ADDERALL XR) 20 mg 24 hr capsule Take 1 capsule by mouth once daily for 30 days. Do not start before December 28, 2022. 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 Do not start before December 28, 2022. Medications Discontinued During This Encounter Prescriptions - acetaminophen 325 mg-caffeine 40 mg-butalbital 50 mg (FIORICET) per tablet (Discontinued) Take 1 tablet by mouth every 6 hours as needed. - amphetamine-dextroamp hetamine XR (ADDERALL XR) 20 mg 24 hr capsule (Discontinued) Take 1 capsule by mouth once daily for 30 days. Encounter Status:Closed by GEOVANI AVILA on 12/27/22 [facility] Randi 12-19-2022 CNPN Telephone (AGGPC) CLAIRE RAMOS ([id number]) 1990 F Date Time Provider Department 12/19/22 MEL NICHOLAS AGGTHA During your visit today, we recorded the following information about you: Bernarda Galvan 12/19/2022 12:44 PM Signed Referral placed in [facility] portal to NEUROPSYCHOLOGICAL TESTING . Confirmation number: [id number] Bernarda Galvan 01/17/2023 3:43 PM Signed Allergies As of Date: 12/19/2022 (No Known Allergies) Date Reviewed: 12/19/2022 Reviewed by: Mel Nicholas MD - Fully Assessed Reason for Visit: Orders [361] Cmt: NEUROPSYCH Prescriptions as of 01/17/2023 - amphetamine-dextroamp hetamine XR (ADDERALL XR) 20 mg 24 hr capsule Take 1 capsule by mouth once daily for 30 days. Do not start before December 28, 2022. 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 Please follow up with patient. Bernarda Celis MA 11/08/2022 10:04 AM Signed Spoke with Pt gustavo her know that scripts will be filled till she can find a new pcp. Allergies As of Date: 11/08/2022 (No Known Allergies) Date Reviewed: 03/21/2021 Reviewed by: Serg Garibay - Fully Assessed Reason for Visit: Patient Question [9470] Prescriptions as of 11/08/2022 - amphetamine-dextroamp hetamine XR (ADDERALL XR) 20 mg 24 hr capsule Take 1 capsule by mouth once daily for 30 days. Do not start before October 21, 2022. - acetaminophen 325 mg-caffeine 40 mg-butalbital 50 mg (FIORICET) per tablet Take 1 tablet by mouth every 6 hours as needed. 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 Serg Garibay MD Allergies As of Date: 09/22/2022 (No Known Allergies) Date Reviewed: 03/21/2021 Reviewed by: Serg Garibay - Fully Assessed Reason for Visit: Refill Request [94] Visit Diagnosis:ADHD (attention deficit hyperactivity disorder), inattentive type [F90.0] Prescriptions as of 10/15/2022 - amphetamine-dextroamp hetamine XR (ADDERALL XR) 20 mg 24 hr capsule Take 1 capsule by mouth once daily for 30 days. Do not start before September 21, 2022. - acetaminophen 325 mg-caffeine 40 mg-butalbital 50 mg (FIORICET) per tablet Take 1 tablet by mouth every 6 hours as needed. 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 Interpretation and review of laboratory results Abnormal [facility] Test Performed by [facility], [address] [place] [id number] [facility]ITAL[facility] Voyat [facility] CBCon 05-11-2022 Hematocrit (Bld) [Volume fraction] 32.5 % Low 35.0 - 47.0 % [employer] Work Phone: Hemoglobin (Bld) [Mass/Vol] 10.8 g/dL Low 11.7 - 16.0 g/dL [employer] Work Phone: Interpretation and review of laboratory results Abnormal [employer] Work Phone: MCH (RBC) [Entitic mass] 26.0 pg 26.0 - 34.0 pg [employer] Work Phone: MCHC (RBC) [Mass/Vol] 33.2 % 32.0 - 36.0 % [employer] Work Phone: MCV (RBC) [Entitic vol] 78.4 fL Low 79.0 - 98.0 fL [employer] Work Phone: Platelet distribution width (Bld) [Ratio] 15.4 % High 11.5 - 14.5 % [employer] Work Phone: Platelet mean volume (Bld) [Entitic vol] 7.4 fL 7.4 - 12.4 fL [employer] Work Phone: Comment on above: MPV is a calculated measurement using platelet volume ratio. Platelets (Bld) [#/Vol] 342 10*3/uL 140 - 440 10*3/uL [employer] Work Phone: RBC (Bld) [#/Vol] 4.15 10*6/uL 3.80 - 5.2 0 10*6/uL [facility] Work Phone: WBC (Bld) [#/Vol] 13.8 10*3/uL High 3.6 - 10.7 10*3/uL [facility] Work Phone: Test Performed by [facility], [address] [place] [id number] [facility] Work Phone: Comp Metabolic Panelon 05-11 Calcium [Mass/Vol] 9.4 mg/dL Normal 8.4-10.[address] [facility] Comment on above: Performed By: #### C MP3, HEMOG #### [place] [address] [address] [place], [place] ALP [Catalytic activity/Vol] 151 U/L High 38-[address] [facility] Comment on above: Performed By: #### C MP3, HEMOG #### [place] [address] [address] [place], [place] ALT [Catalytic activity/Vol] 11 U/L Normal 0-[address] [facility] Comment on above: Result Comment: The ALT test is performed by an updated assay method. Please note that the reference intervals have been changed and are now sex specific. Performed By: #### C MP3, HEMOG #### [place] [address] [address] [place], [place] Anion gap [Moles/Vol] 9 mmol/L Normal 3-13 [facility] Comment on above: Performed By: #### C MP3, HEMOG #### [place] [address] [address] [place], [place] AST [Catalytic activity/Vol] 17 U/L Normal 15-[address] [facility] Comment on above: Performed By: #### C MP3, HEMOG #### [place] [address] [address] [place], [place] Bilirubin [Mass/Vol] 0.2 mg/dL Normal 0.2-1.3 [facility] Comment on above: Performed By: #### C MP3, HEMOG #### [place] [address] [address] [place], [place] CO2 [Moles/Vol] 20 mmol/L Low 22-30 [facility] Comment on above: Performed By: #### C MP3, HEMOG #### [facility] [address] [place], [place] Creatinine [Mass/Vol] 0.56 mg/dL Normal 0.52-1.25 [facility] Comment on above: Performed By: #### C MP3, HEMOG #### [facility] [address] [place], [place] eGFR OTHER > 90.0 Normal >[address] [facility] Comment on above: Result Comment: KDIG O guidelines provide the following GFR categories: Stage GFR(ml/min/1.73 m2) Terms G1 >=90 Normal or high G2 60-89 Mildly decreased* G3a 45-59 Mildly to moderately decreased G3b 30-44 Moderately to severely decreased G4 15-29 Severely decreased G5 <15 Kidney failure *Relative to young adult level. In the absence of evidence of kidney damage, neither GFR category G1 nor G2 fulfill the criteria for CKD. The CKD-EPI equation is validated in individuals 18 years of age and older. Currently the best equation for estimating glomerular filtration rate (GFR) from serum creatinine in children is the Bedside Skinner equation. It is less accurate in patients with extremes of muscle mass, restriction of dietary protein, ingestion of creatine, extra-renal metabolism of creatinine, or treatment with medications that affect renal tubular creatinine secretion. Performed By: #### C MP3, HEMOG #### [facility] [address], [place] GFR/1.73 sq M.predicted among blacks MDRD (S/P/Bld) [Vol rate/Area] mL/min/{1.73_m2} Normal >[address] [facility] Comment on above: Performed By: #### C MP3, HEMOG #### [facility] [address] [place], [place] Glucose [Mass/Vol] 103 mg/dL High 70-[address] [facility] Comment on above: Performed By: #### C MP3, HEMOG #### [place] [address] [place] [address] Protein [Mass/Vol] 7.7 g/dL Normal 6.3-8.[address] [facility] Comment on above: Performed By: #### C MP3, HEMOG #### [facility] [address], [place] Urea nitrogen [Mass/Vol] 9 mg/dL Normal 9-[address] [facility] Comment on above: Performed By: #### C MP3, HEMOG #### [place] [address] [place], [place] Potassium [Moles/Vol] 3.6 mmol/L Normal 3.5-5.1 [facility] Comment on above: Performed By: #### C MP3, HEMOG #### [place] [address] [place], [place] Albumin [Mass/Vol] 4.1 g/dL Normal 3.5-5.[address] [facility] Comment on above: Performed By: #### C MP3, HEMOG #### [place] [address] [place], [place] Chloride [Moles/Vol] 107 mmol/L Normal 98-107 [facility] Comment on above: Performed By: #### C MP3, HEMOG #### [place] [address] [place], [place] Sodium [Moles/Vol] 137 mmol/L Normal 135-[address] [facility] Comment on above: Performed By: #### C MP3, HEMOG #### [place] [address] [place], [place] Comprehensive Metabolic Pane chinedu 05-11-2022 Albumin [Mass/Vol] 4.1 g/dL 3.5 - 5.0 g/dL [facility] Work Phone: ALP (Bld) [Catalytic activity/Vol] 151 U/L High 38 - 126 U/L [facility] Work Phone: ALT [Catalytic activity/Vol] 11 U/L 0 - 34 U/L [facility] Work Phone: Comment on above: The ALT test is perf ormed by an updated assay method. Please note that the reference intervals have been changed and are now sex specific. Anion gap [Moles/Vol] 9 mmol/L 3 - 13 mmol/L [facility] Work Phone: AST [Catalytic activity/Vol] 17 U/L 15 - 46 U/L [facility] Work Phone: Bilirubin [Mass/Vol] 0.2 mg/dL 0.2 - 1 .3 mg/dL [facility] Work Phone: Calcium [Mass/Vol] 9.4 mg/dL 8.4 - 10. 4 mg/dL [facility] Work Phone: Chloride [Moles/Vol] 107 mmol/L 98 - 10 7 mmol/L [facility] Work Phone: CO2 [Moles/Vol] 20 mmol/L Low 22 - 30 mmol/L [facility] Work Phone: Creatinine [Mass/Vol] 0.56 mg/dL 0.52 - 1.25 mg/dL [facility] Work Phone: EGFR IF NonAfrican Thai >90.0 >60 mL/min [facility] Work Phone: Comment on above: KDIGO guidelines pro vide the following GFR categories: Stage GFR(ml/min/1.73 m2) Terms G1 >=90 Normal or high G2 60-89 Mildly decreased* G3a 45-59 Mildly to moderately decreased G3b 30-44 Moderately to severely decreased G4 15-29 Severely decreased G5 <15 Kidney failure *Relative to young adult level. In the absence of evidence of kidney damage, neither GFR category G1 nor G2 fulfill the criteria for CKD. The CKD-EPI equation is validated in individuals 18 years of age and older. Currently the best equation for estimating glomerular filtration rate (GFR) from serum creatinine in children is the Bedside Skinner equation. It is less accurate in patients with extremes of muscle mass, restriction of dietary protein, ingestion of creatine, extra-renal metabolism of creatinine, or treatment with medications that affect renal tubular creatinine secretion. Free PSA/Total PSA [Mass fraction] 7.7 g/dL 6.3 - 8.2 g/dL [facility] Work Phone: GFR/1.73 sq M.predicted among blacks MDRD (S/P/Bld) [Vol rate/Area] mL/min/{1.73_m2} >60 mL/min [facility] Work Phone: Glucose [Mass/Vol] 103 mg/dL High 70 - 100 mg/dL [facility] Work Phone: Interpretation and review of laboratory results Abnormal [facility] Work Phone: Potassium [Moles/Vol] 3.6 mmol/L 3.5 - 5.1 mmol/L [facility] Work Phone: Sodium [Moles/Vol] 137 mmol/L 135 - 145 mmol/L [facility] Work Phone: Urea nitrogen (BldV) [Mass/Vol] 9 mg/dL 9 - 20 mg/dL [facility] Work Phone: Test Performed by [facility], [address] [place] [address] Work Phone: Hemogramon 05-11-2022 Erythrocyte distribution width (RBC) [Ratio] 15.4 % High 11.5-14.[address] [facility] Comment on above: Performed By: #### C EMERSON3, HEMOG #### [address] Hematocrit (Bld) [Volume fraction] 32.5 % Low 35.0-47.[address] [facility] Comment on above: Performed By: #### C MP3, HEMOG #### [address] Hemoglobin (Bld) [Mass/Vol] 10.8 g/dL Low 11.7-16.[address] [facility] Comment on above: Performed By: #### C MP3, HEMOG #### [address] MCH (RBC) [Entitic mass] 26.0 pg Normal 26.0-34.[address] [facility] Comment on above: Performed By: #### C MP3, HEMOG #### [address] MCHC 33.2 % Normal 32.0-36.[address] [facility] Comment on above: Performed By: #### C MP3, HEMOG #### [facility] [address] [place], [place] MCV (RBC) [Entitic vol] 78.4 fL Low 79.0-98.0 S [facility] Comment on above: Performed By: #### C MP3, HEMOG #### [facility] [address], [place] Platelet mean volume (Bld) [Entitic vol] 7.4 fL Normal 7.4-12.[address] [facility] Comment on above: Result Comment: MPV is a calculated measurement using platelet volume ratio. Performed By: #### C MP3, HEMOG #### [place] [address] [place], [place] Platelets (Bld) [#/Vol] 342 10*3/uL Normal 140-[address] [facility] Comment on above: Performed By: #### C MP3, HEMOG #### [place] [address] [place], [place] RBC (Bld) [#/Vol] 4.15 10*6/uL Normal 3.80-5.[address] [facility] Comment on above: Performed By: #### C MP3, HEMOG #### [place] [address] [place], [place] WBC (Bld) [#/Vol] 13.8 10*3/uL High 3.6-10.[address] [facility] Comment on above: Performed By: #### C MP3, HEMOG #### [facility] [address], [place] TS GELon 05-11-2022 TS GEL ABO Group: A Rh, Gel: POS Antibody Screen Gel: NEG Normal [facility] Comment on above: Performed By: #### T SGL #### [facility] TYPE AND SCREENOrdered By: Praveen Sharma on 05-11-2022 ABO Grouping A [facility] Rh Type Positive [facility] TYPE AND SCREENon 05-11-2022 Test Performed by [facility], [address] [place] [address] [facility] Platelet Aggregationon 12-09 ADP 20 Max Aggreg 96 % Normal 70-100 [facility] Comment on above: Performed By: #### A GGPL #### [facility] [address] [facility], [address] ADP Max Aggreg 37 % Low 70-100 [facility] Comment on above: Performed By: #### A GGPL #### [facility] [address] [facility], [address] Arach Max Aggreg 90 % Normal 66-100 [facility] Comment on above: Performed By: #### A GGPL #### [facility] [address] [facility], [address] ATP Rel by ADP 0.0 nm Low 0.2-1.6 [facility] Comment on above: Performed By: #### A GGPL #### [facility] [address] [facility], [address] ATP Rel by ADP 20 0.2 nm Normal 0.2-1.6 [facility] Comment on above: Performed By: #### A GGPL #### [facility] [address] [facility], [address] ATP Rel by Aracha 2.4 nm High 0.0-1.3 [facility] Comment on above: Performed By: #### A GGPL #### [facility] [address] [facility], [address] ATP Rel by Collagen 0.9 nm Normal 0.4-1.9 [facility] Comment on above: Performed By: #### A GGPL #### [facility] [address] [facility], [address] ATP Rel by Epineph 0.0 nm Low 0.3-1.[address] [facility] Comment on above: Performed By: #### A GGPL #### [facility] [address] [facility], [address] ATP Rel by Epineph 100 0.5 nm Normal 0.3-1.7 [facility] Comment on above: Performed By: #### A GGPL #### [facility] [address] [facility], [address] Collagen Max Aggreg 82 % Normal 70-[address] [facility] Comment on above: Performed By: #### A GGPL #### [facility] [address] [facility], [address] Epin 100 Max Aggreg 48 % Low 67-[address] [facility] Comment on above: Performed By: #### A GGPL #### [facility] [address] [facility], [address] EPIN Max Aggreg 8 % Low 67-95 [facility] Comment on above: Performed By: #### A GGPL #### [facility] [address] [facility], [address] Interpretation see below Normal [facility] Comment on above: Result Comment: Decr eased aggregation and release to low dose ADP and epinephrine. A laboratory study of platelet aggregation and stimulated granule release was performed. The platelet aggregation study is abnormal. There is a decreased aggregation and dense granule release with both 5uM ADP and 10uM ADP epinephrine. Aggregation and release is normal with the higher concentration of both of these agonists (20uM ADP and 100uM epinephrine). The aggregation and release is normal with both archidonic acid and collagen. The ristocetin induce platelet aggregation shows a normal dose response. The platelet function abnormality is limited to the low dose of both ADP and epinephine and shows a dosage effect with normal responses to the higher doses. The patient relates a history of abnormal platelet aggregation in her mother and grandmother. This was previously called platelet storage pool disorder. However with the normal ATP dense granule release at the high concentrations of ADP and epinephrine the pattern is more likely to represent a signaling disorder rather than a dense granule storage pool disorder. If clinicaly indicated consider platelet flow cytometry to further characterize the abnormal platelets. This is a send out test that measures platelet surface markers however it is not designed to distingush between a storage pool disorder and a signaling disorder. Performing pathologist: Suki York Performed By: #### A GGPL #### [facility] [address] [facility], [address] Risto 1200 Max Agg 90 % Normal 68-[address] [facility] Comment on above: Performed By: #### A GGPL #### [facility] [address] [facility], [address] Risto 1500 Max Agg 87 % Normal 75-[address] [facility] Comment on above: Performed By: #### A GGPL #### [facility] [address] [facility], [address] Risto 600 Max Agg 1 % Normal 0-26 [facility] Comment on above: Performed By: #### A GGPL #### [facility] [address] [facility], [address] Risto 900 Max Agg 94 % High 0-90 [facility] Comment on above: Performed By: #### A GGPL #### [facility] [address] [facility], [address] HemoglobinOrdered By: Darek Fountain on 11-24-2019 Hemoglobin (Bld) [Mass/Vol] 10.5 g/dL Low 11.7 - 16 g/dL [facility] Work Phone: Interpretation and review of laboratory results Abnormal [facility] Work Phone: Test Performed by [facility] [employer] [id number] [place] [address] Work Phone: CBCOrdered By: Jairo dodson on 11-23-2019 Erythrocyte distribution width (RBC) [Ratio] 15.2 % High 11.5 - 14.5 % [facility] Work Phone: Hematocrit (Bld) [Volume fraction] 35.3 % 35 - 47 % [facility] Work Phone: Hemoglobin (Bld) [Mass/Vol] 11.8 g/dL 11.7 - 16 g/dL [facility] Work Phone: Interpretation and review of laboratory results Abnormal [facility] Work Phone: MCH (RBC) [Entitic mass] 27.7 pg 26 - 34 pg [facility] Work Phone: MCHC 33.5 % 32 - 36 % [facility] Work Phone: MCV (RBC) [Entitic vol] 82.7 fL 79 - 98 fL [facility] Work Phone: Platelet mean volume (Bld) [Entitic vol] 7.3 fL Low 7.4 - 10.4 fL [facility] Work Phone: Platelets (Bld) [#/Vol] 362 10*3/uL 140 - 440 10*3/uL [facility] Work Phone: RBC (Bld) [#/Vol] 4.27 10*6/uL 3.8 - 5.2 10*6/uL [facility] Work Phone: WBC (Bld) [#/Vol] 13.4 10*3/uL High 3.6 - 10.7 10*3/uL [facility] Work Phone: Test Performed by [employer], [place] [address] [employer] Work Phone: TYPE AND SCREENOrdered By: Katie Fountain on 11-23-2019 ABO Grouping A [employer] Work Phone: Rh Type Positive [employer] Work Phone: Comment on above: Test Performed by [employer], [facility] [place] [address] Test Performed by [employer], [facility] [place] [address] [employer] Work Phone: CBCOrdered By: Ari sheth on 11-20-2019 Erythrocyte distribution width (RBC) [Ratio] 15.0 % High 11.5 - 14.5 % [employer] Work Phone: Hematocrit (Bld) [Volume fraction] 34.2 % Low 35 - 47 % [employer] Work Phone: Hemoglobin (Bld) [Mass/Vol] 11.2 g/dL Low 11.7 - 16 g/dL [employer] Work Phone: Interpretation and review of laboratory results Abnormal [employer] Work Phone: MCH (RBC) [Entitic mass] 27.2 pg 26 - 34 pg [facility] Work Phone: MCHC 32.8 % 32 - 36 % [facility] Work Phone: MCV (RBC) [Entitic vol] 82.9 fL 79 - 98 fL [facility] Work Phone: Platelet mean volume (Bld) [Entitic vol] 6.9 fL Low 7.4 - 10.[address] [facility] Work Phone: Platelets (Bld) [#/Vol] 343 10*3/uL 140 - 440 10*3/uL [facility] Work Phone: RBC (Bld) [#/Vol] 4.13 10*6/uL 3.8 - 5.2 10*6/uL [facility] Work Phone: WBC (Bld) [#/Vol] 11.4 10*3/uL High 3.6 - 10.7 10*3/uL [facility] Work Phone: Test Performed by [employer] [facility], [address] [place] [address] [address] [facility] Work Phone: Comprehensive Metabolic Pane lOrdered By: Ari Ellington on 11-20-2019 Albumin [Mass/Vol] 3.6 g/dL 3.5 - 5 g/dL [facility] Work Phone: ALP [Catalytic activity/Vol] 127 U/L High 38 - 126 U/L [facility] Work Phone: ALT [Catalytic activity/Vol] 17 U/L 13 - 69 U/L [facility] Work Phone: Anion gap [Moles/Vol] 8 mmol/L [facility] Work Phone: AST [Catalytic activity/Vol] 19 U/L 15 - 46 U/L [facility] Work Phone: Bilirubin [Mass/Vol] 0.1 mg/dL Low 0.2 - 1 .3 mg/dL [facility] Work Phone: Calcium [Mass/Vol] 8.7 mg/dL 8.4 - 10. 4 mg/dL [facility] Work Phone: Chloride [Moles/Vol] 106 mmol/L 98 - 10 7 mmol/L [facility] Work Phone: CO2 [Moles/Vol] 23 mmol/L 22 - 30 mmol/L [facility] Work Phone: Creatinine [Mass/Vol] 0.6 mg/dL 0.52 - 1.25 mg/dL [facility] Work Phone: EGFR IF NonAfrican Thai >60.0 >60 mL/min [facility] Work Phone: Comment on above: Source- MDRD equatio n with creatinine calibration to IDMS(NKDEP) eGFR not recommended for drug dose adjustment GFR/1.73 sq M.predicted among blacks MDRD (S/P/Bld) [Vol rate/Area] mL/min/{1.73_m2} >60 mL/min [facility] Work Phone: Glucose [Mass/Vol] 116 mg/dL High 70 - 100 mg/dL [facility] Work Phone: Interpretation and review of laboratory results Abnormal [facility] Work Phone: Potassium [Moles/Vol] 4.1 mmol/L 3.5 - 5.1 mmol/L [facility] Work Phone: Protein [Mass/Vol] 6.9 g/dL 6.3 - 8.2 g/dL [facility] Work Phone: Sodium [Moles/Vol] 137 mmol/L 135 - 145 mmol/L [facility] Work Phone: Urea nitrogen [Mass/Vol] 7 mg/dL 7 - 20 mg/dL [facility] Work Phone: Test Performed by [employer] [address] [employer] Work Phone: CBC Auto DifferentialOrdered By: Nathanael Bertrand on 11-16-2019 Absolute Baso # 0.0 10*3/uL 0 - 0.2 10*3/uL [facility] Work Phone: Absolute Neut # 10.1 10*3/uL High 1.8 - 7 10*3/uL [facility] Work Phone: Basophils/100 WBC (Bld) 0.2 % 0 - 2 % [facility] Work Phone: Eosinophils (Bld) [#/Vol] 0.0 10*3/uL 0 - 0.5 10*3/uL [facility] Work Phone: Eosinophils/100 WBC (Bld) 0.3 % Low 1 - 6 % [facility] Work Phone: Erythrocyte distribution width (RBC) [Ratio] 15.0 % High 11.5 - 14.5 % [facility] Work Phone: Granulocytes/100 WBC (Bld) 79.6 % 40 - 80 % [facility] Work Phone: Hematocrit (Bld) [Volume fraction] 36.1 % 35 - 47 % [facility] Work Phone: Hemoglobin (Bld) [Mass/Vol] 11.8 g/dL 11.7 - 16 g/dL [facility] Work Phone: Interpretation and review of laboratory results Abnormal [facility] Work Phone: Lymphocytes (Bld) [#/Vol] 1.9 10*3/uL 1 - 4.3 10*3/uL [facility] Work Phone: Lymphocytes/100 WBC (Bld) 14.7 % Low 20 - 40 % [facility] Work Phone: MCH (RBC) [Entitic mass] 26.9 pg 26 - 34 pg [facility] Work Phone: MCHC 32.7 % 32 - 36 % [facility] Work Phone: MCV (RBC) [Entitic vol] 82.3 fL 79 - 98 fL S [employer] Work Phone: Monocytes (Bld) [#/Vol] 0.7 10*3/uL 0 - 0.8 10*3/uL [facility] Work Phone: Monocytes/100 WBC (Bld) 5.2 % 2 - 10 % [facility] [employer] Work Phone: Platelet mean volume (Bld) [Entitic vol] 6.8 fL Low 7.4 - 10.4 fL [facility] Work Phone: Platelets (Bld) [#/Vol] 370 10*3/uL 140 - 440 10*3/uL [facility] Work Phone: RBC (Bld) [#/Vol] 4.39 10*6/uL 3.8 - 5.2 10*6/uL [facility] Work Phone: WBC (Bld) [#/Vol] 12.7 10*3/uL High 3.6 - 10.7 10*3/uL [facility] Work Phone: Test Performed by [facility], [address] [place] [id number] [place], [place] [id number] Work Phone: COMPREHENSIVE METABOLIC PANE LOrdered By: Nathanael Bertrand on 11-16-2019 Albumin [Mass/Vol] 3.9 g/dL 3.5 - 5 g/dL [facility] Work Phone: ALP [Catalytic activity/Vol] 136 U/L High 38 - 126 U/L [facility] Work Phone: ALT [Catalytic activity/Vol] 18 U/L 13 - 69 U/L [facility] Work Phone: Anion gap [Moles/Vol] 11 mmol/L [facility] Work Phone: AST [Catalytic activity/Vol] 16 U/L 15 - 46 U/L [facility] Work Phone: Bilirubin [Mass/Vol] 0.3 mg/dL 0.2 - 1 .3 mg/dL [facility] Work Phone: Calcium [Mass/Vol] 9.1 mg/dL 8.4 - 10. 4 mg/dL [facility] Work Phone: Chloride [Moles/Vol] 105 mmol/L 98 - 10 7 mmol/L [facility] Work Phone: CO2 [Moles/Vol] 20 mmol/L Low 22 - 30 mmol/L [facility] Work Phone: Creatinine [Mass/Vol] 0.61 mg/dL 0.52 - 1.25 mg/dL [facility] Work Phone: EGFR IF NonAfrican Thai >60.0 >60 mL/min [facility] Work Phone: Comment on above: Source- MDRD equatio n with creatinine calibration to IDMS(NKDEP) eGFR not recommended for drug dose adjustment GFR/1.73 sq M.predicted among blacks MDRD (S/P/Bld) [Vol rate/Area] mL/min/{1.73_m2} >60 mL/min [facility] Work Phone: Glucose [Mass/Vol] 98 mg/dL 70 - 100 mg/dL [facility] Work Phone: Interpretation and review of laboratory results Abnormal [facility] Work Phone: Potassium [Moles/Vol] 3.9 mmol/L 3.5 - 5.1 mmol/L [facility] Work Phone: Protein [Mass/Vol] 7.6 g/dL 6.3 - 8.2 g/dL [facility] Work Phone: Sodium [Moles/Vol] 136 mmol/L 135 - 145 mmol/L [facility] Work Phone: Urea nitrogen [Mass/Vol] 8 mg/dL 7 - 20 mg/dL [facility] Work Phone: Test Performed by [facility] [employer], [address] [place], [place] [address] [facility] Work Phone: CREATININE, RANDOM URINEOrde red By: Nathanael Bertrand on 11-16-2019 Creatinine (U) [Mass/Vol] 134.6 mg/dL No Range [facility] Work Phone: Comp Metabolic Panelon 11-16 ALP [Catalytic activity/Vol] 136 U/L High 38-[address] [facility] Comment on above: Performed By: #### H AUSTIN CMP3 #### [facility] [address] [place] [address] ALT [Catalytic activity/Vol] 18 U/L Normal 13-[address] [facility] Comment on above: Performed By: #### H AUSTIN CMP3 #### [facility] [address] [place] [address] AST [Catalytic activity/Vol] 16 U/L Normal 15-[address] [facility] Comment on above: Performed By: #### H AUSTIN CMP3 #### [facility] [address] [place] [address] Calcium [Mass/Vol] 9.1 mg/dL Normal 8.4-10.[address] [facility] Comment on above: Performed By: #### H AUSTIN, CMP3 #### [facility] [address] [place] [address] Glucose [Mass/Vol] 98 mg/dL Normal 70-[address] [facility] Comment on above: Performed By: #### H AUSTIN CMP3 #### [facility] [address] [place] [address] Protein [Mass/Vol] 7.6 g/dL Normal 6.3-8.[address] [facility] Comment on above: Performed By: #### H AUSTIN, CMP3 #### [place] [address] [place] [address] Urea nitrogen [Mass/Vol] 8 mg/dL Normal 7-[address] [facility] Comment on above: Performed By: #### H AUSTIN CMP3 #### [facility] [address] [place] [address] Anion gap [Moles/Vol] 11 Normal [facility] Comment on above: Performed By: #### H AUSTIN CMP3 #### [facility] [address] [place] [address] Bilirubin [Mass/Vol] 0.3 mg/dL Normal 0.2-1.3 [facility] Comment on above: Performed By: #### H AUSTIN CMP3 #### [facility] [address] [place] [address] CO2 [Moles/Vol] 20 mmol/L Low 22-30 [facility] Comment on above: Performed By: #### H AUSTIN CMP3 #### [facility] [address] [place] [address] Creatinine [Mass/Vol] 0.61 mg/dL Normal 0.52-1.25 [facility] Comment on above: Performed By: #### H AUSTIN CMP3 #### [place] [address] [place] [address] GFR/1.73 sq M predicted among blacks MDRD (S/P/Bld) [Vol rate/Area] mL/min/{1.73_m2} Normal >[address] [facility] Comment on above: Performed By: #### H AUSTIN CMP3 #### [facility] [address] [place] [address] GFR/1.73 sq M predicted among non-blacks MDRD (S/P/Bld) [Vol rate/Area] mL/min/{1.73_m2} Normal >[address] [facility] Comment on above: Result Comment: Sour ce- MDRD equation with creatinine calibration to IDMS(NKDEP) eGFR not recommended for drug dose adjustment Performed By: #### H AUSTIN CMP3 #### [facility] [address] [place] [address] Albumin [Mass/Vol] 3.9 g/dL Normal 3.5-5.[address] [facility] Comment on above: Performed By: #### H AUSTIN CMP3 #### [facility] [address] [place] [address] Chloride [Moles/Vol] 105 mmol/L Normal 98-107 [facility] Comment on above: Performed By: #### H AUTSIN CMP3 #### [place] [address] [place] [address] Potassium [Moles/Vol] 3.9 mmol/L Normal 3.5-5.1 [facility] Comment on above: Performed By: #### H AUSTIN CMP3 #### [facility] [address] [place] [address] Sodium [Moles/Vol] 136 mmol/L Normal 135-[address] [facility] Comment on above: Performed By: #### H AUSTIN CMP3 #### [facility] [address] [place] [address] Creatinine, Ur Randomon 11-01 Creatinine, Ur Random 134.6 mg/dL Normal No Range [facility] Comment on above: Performed By: #### T PUR, CRTUR #### [facility] [address] [place] [address] Hemogram w/ Autodiffon 11-16 Abs Baso Cnt 0.0 10*3/uL Normal 0.0-0.2 [facility] Comment on above: Performed By: #### H AUSTIN CMP3 #### [facility] [address] [place] [address] Abs Neutrophile Cnt 10.1 10*3/uL High 1.8-7.0 [facility] Comment on above: Performed By: #### H AUSTIN CMP3 #### [facility] [address] [place] [address] Basophils/100 WBC (Bld) 0.2 % Normal 0.0-2.0 S [facility] Comment on above: Performed By: #### H AUSTIN CMP3 #### [place] [address] [place] [address] Eosinophils (Bld) [#/Vol] 0.0 10*3/uL Normal 0.0-0.[address] [facility] Comment on above: Performed By: #### H AUSTIN CMP3 #### [facility] [address] [place] [address] Eosinophils/100 WBC (Bld) 0.3 % Low 1.0-6.[address] [facility] Comment on above: Performed By: #### H AUSTIN CMP3 #### [facility] [address] [place] [address] Erythrocyte distribution width (RBC) [Ratio] 15.0 % High 11.5-14.[address] [facility] Comment on above: Performed By: #### H AUSTIN CMP3 #### [facility] [address] [place] [address] Granulocytes/100 WBC (Bld) 79.6 % Normal 40.0-80.[address] [facility] Comment on above: Performed By: #### H AUSTIN CMP3 #### [facility] [address] [place] [address] Hematocrit (Bld) [Volume fraction] 36.1 % Normal 35.0-47.[address] [facility] Comment on above: Performed By: #### H AUSTIN CMP3 #### [facility] [address] [place] [address] Hemoglobin (Bld) [Mass/Vol] 11.8 g/dL Normal 11.7-16.[address] [facility] Comment on above: Performed By: #### H AUSTIN CMP3 #### [facility] [address] [place] [address] Lymphocytes (Bld) [#/Vol] 1.9 10*3/uL Normal 1.0-4.[address] [facility] Comment on above: Performed By: #### H EMDKandi CMP3 #### [facility] [address] [place] [address] Lymphocytes/100 WBC (Bld) 14.7 % Low 20.0-40.[address] [facility] Comment on above: Performed By: #### H AUSTIN CMP3 #### [facility] [address] [place] [address] MCH (RBC) [Entitic mass] 26.9 pg Normal 26.0-34.[address] [facility] Comment on above: Performed By: #### H AUSTIN CMP3 #### [facility] [address] [place] [address] MCHC (RBC) [Mass/Vol] 32.7 % Normal 32.0-36.0 [facility] Comment on above: Performed By: #### H AUSTIN CMP3 #### [facility] [address] [place] [address] MCV (RBC) [Entitic vol] 82.3 fL Normal 79.0-98.0 S [facility] Comment on above: Performed By: #### H AUSTIN CMP3 #### [facility] [address] [place] [address] Monocytes (Bld) [#/Vol] 0.7 10*3/uL Normal 0.0-0.[address] [facility] Comment on above: Performed By: #### H EMDF CMP3 #### [facility] [address] [place] [address] Monocytes/100 WBC (Bld) 5.2 % Normal 2.0-10.0 S [facility] Comment on above: Performed By: #### H EMDF CMP3 #### [facility] [address] [place] [address] Platelet mean volume (Bld) [Entitic vol] 6.8 fL Low 7.4-10.[address] [facility] Comment on above: Performed By: #### H EMDF, CMP3 #### [facility] [address] [place] [address] Platelets (Bld) [#/Vol] 370 10*3/uL Normal 140-[address] [facility] Comment on above: Performed By: #### H EMDF, CMP3 #### [facility] [address] [place] [address] RBC (Bld) [#/Vol] 4.39 10*6/uL Normal 3.80-5.[address] [facility] Comment on above: Performed By: #### H EMDF, CMP3 #### [facility] [address] [place] [address] WBC (Bld) [#/Vol] 12.7 10*3/uL High 3.6-10.[address] [facility] Comment on above: Performed By: #### H EMDF, CMP3 #### [facility] [address] [place] [address] No Panel InformationOrdered By: Nathanael Bertrand on 11-16-2019 Test Performed by [facility], [facility] [address] Work Phone: PROTEIN, URINE, RANDOMOrdere d By: Nathanael Bertrand on 11-16-2019 Protein (U) [Mass/Vol] 10 mg/dL No Range [employer] Work Phone: Protein, Ur Randomon 019 Protein [Mass/Vol] 10 mg/dL Normal No Range [facility] Comment on above: Performed By: #### T PUR, CRTUR #### [facility] [address] [place] [address] TS GELon 11-16-2019 TS GEL ABO Group: A Rh, Gel: POS Antibody Screen Gel: NEG Normal [facility] Comment on above: Performed By: #### T SGL #### [facility] [address] [place] [address] Progress Noteon 06-10-2019 Interactive Account Manager Authentication Interface Message Text The patient presents for requested ultrasound. Full report available in the Imaging tab in Epic. 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 A definite diagnosis by molecular genetic has not been achieved. Storage pool disorders include the barbosa platelet syndrome with deficiency of alpha granules and dense granule deficiencies that are often part of other congenital disorders. Wiskott-Lili syndrome is one such example. Chediak-Higashi syndrome, Hermansky-Pudlak syndrome, and thrombocytopenia-abse nt radius syndrome (TARS) are others. A detailed medical genetics consultation has been performed. I also counseled her regarding the possible effects on the . An effect of Platelet Pool Storage Diseases on has not been extensively studied. There is marked variability in clinical presentation; however, bleeding is a risk. This includes possibility of miscarriage, abruption, intrapartum, and hemorrhage. on the other hand decreases the platelet count and has no effect on platelet function. With an autosomal dominant mode of inheritance, the risk is 50%. There is a very small risk for intracranial hemorrhage especially with instrumental delivery. evaluation is indicated. Plan: 1. 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 2. Hematology and Anesthesia consults are recommended. The patient is interested in epidural anesthesia. I explained to the patient and her family the possible risks associated with an Epidural hemorrhage. Consultation with the blood bank for possible platelet transfusion around the time of delivery is recommended 3. Evaluation of anatomy is recommended at 18-20 weeks gestation. This is planned with the Treatment Center. Evaluation of the long bones is indicated to rule out TARS 4. Follow up Q 4 weeks after 28 weeks to evaluate biometric parameters and anatomy beginning at viability. These are planned with the Treatment Center or at your office. 5. surveillance as clinically indicated. 6. Delivery is appropriate at your local institution in [place] with follow up as indicated. 7. Timing of delivery is based on the usual obstetrical indications. 8. Avoid antiplatelet medications such as aspirin, Motrin, and/ or indomethacin. Other recommendations as per Hematology. 9. Mode of delivery: Avoid use of forceps and vacuum or suction due to the risk of bleeding complications in this at-risk fetus. 10. Hospital Account Liaison to evaluate infant at to determine if additional recommendations. 11. Anticipate normal nursery. 12. Hematology consultation to determine if affected. 13. Delay circumcision until after Hematology evaluates infant and determines if affected. 14. Follow up with Medical Genetics as indicated. Oliver Amato MD [facility] Interactive Account Manager Authentication Interface Message Text The total patient time of the visit was 45 minutes, of which greater than 50% of the time was spent counseling and coordinating care. Oliver Amato MD [facility] Vital Signs Date Time Vital Sign Value Performing Clinician Faci lity 03-05-2024 14:39-0400 Body height 157.5 cm Zamzam Piedra ASSISTANT TO THE PRESIDENT [email or web address] Work Phone: [facility] 03-05-2024 14:39-0400 Body mass index (BMI) [Ratio] 32.92 kg/m2 Zamzam Piedra APRN - [employer] Work Phone: [facility] 03-05-2024 14:39-0400 Body temperature 97.3 [degF] Zamzam Piedra ASSISTANT TO THE PRESIDENT - [employer] Work Phone: [facility] 03-05-2024 14:39-0400 Body weight 81.65 kg Zamzam Piedra ASSISTANT TO THE PRESIDENT - [facility] Work Phone: [facility] 03-05-2024 14:39-0400 Diastolic blood pressure 81 mm[Hg] Zamzam Piedra ASSISTANT TO THE PRESIDENT - [employer] Work Phone: [facility] 03-05-2024 14:39-0400 Heart rate 98 /min Zamzam Piedra ASSISTANT TO THE PRESIDENT - [employer] Work Phone: [facility] 03-05-2024 14:39-0400 SaO2% (BldA) [Mass fraction] 99 % Zamzam Piedra ASSISTANT TO THE PRESIDENT - [employer] Work Phone: [facility] 03-05-2024 14:39-0400 Systolic blood pressure 129 mm[Hg] Zamzam Tadeo ASSISTANT TO THE PRESIDENT - [employer] Work Phone: [facility] 12-28-2022 07:15-0500 Body height 157.5 cm Radha Dudley MD Work Phone: [facility] 12-28-2022 07:15-0500 Body mass index (BMI) [Ratio] 36.29 kg/m2 Radha Dudley MD Work Phone: [facility] 12-28-2022 07:15-0500 Body temperature 98.29 [degF] Radha Dudley MD Work Phone: [facility] 12-28-2022 07:15-0500 Body weight 89.99 kg Radha Dudley MD Work Phone: [facility] 12-28-2022 07:15-0500 Diastolic blood pressure 88 mm[Hg] Radha Dudley MD Work Phone: [facility] 12-28-2022 07:15-0500 Heart rate 97 /min Radha Dudley MD Work Phone: [facility] 12-28-2022 07:15-0500 SaO2% (BldA) [Mass fraction] 99 % Radha Dudley MD Work Phone: [facility] 12-28-2022 07:15-0500 Systolic blood pressure 125 mm[Hg] Radha Dudley MD Work Phone: [facility] 05-13-2022 08:56-0400 Body temperature 97 [degF] Timi Rubio MD Work Phone: [facility] 05-13-2022 08:56-0400 Diastolic blood pressure 76 mm[Hg] Timi Rubio MD Work Phone: [facility] 05-13-2022 08:56-0400 Heart rate 99 /min Timi Rubio MD Work Phone: [employer] 05-13-2022 08:56-0400 Respiratory rate 18 /min Timi Rubio MD Work Phone: [employer] 05-13-2022 08:56-0400 SaO2% (BldA) [Mass fraction] 99 % Timi Rubio MD Work Phone: [facility] 05-13-2022 08:56-0400 Systolic blood pressure 130 mm[Hg] Timi Rubio MD Work Phone: [facility] 05-11-2022 01:29-0400 Body height 157.5 cm Timi Rubio MD Work Phone: [facility] 05-11-2022 01:29-0400 Body mass index (BMI) [Ratio] 39.32 kg/m2 Timi Rubio MD Work Phone: [facility] 05-11-2022 01:29-0400 Body weight 97.52 kg Timi Rubio MD Work Phone: [facility] 11-25-2019 08:34-0500 Body temperature 97.2 [degF] Irina Freedman MD Work Phone: [facility] Work Phone: 11-25-2019 08:34-0500 Diastolic blood pressure 73 mm[Hg] Irina Freedman MD Work Phone: [facility] Work Phone: 11-25-2019 08:34-0500 Heart rate 119 /min Irina Freedman MD Work Phone: [facility] Work Phone: 11-25-2019 08:34-0500 Respiratory rate 16 /min Irina Freedman MD Work Phone: [facility] Work Phone: 11-25-2019 08:34-0500 SaO2% (BldA) [Mass fraction] 98 % Irina Freedman MD Work Phone: [facility] Work Phone: 11-25-2019 08:34-0500 Systolic blood pressure 118 mm[Hg] Irina Freedman MD Work Phone: [facility] Work Phone: 11-23-2019 12:52-0500 Body height 157.5 cm Irina Freedman MD Work Phone: [facility] Work Phone: 11-23-2019 12:52-0500 Body mass index (BMI) [Ratio] 41.52 kg/m2 Irina Freedman MD Work Phone: [facility] Work Phone: 11-23-2019 12:52-0500 Body weight 102.97 kg Irina Freedman MD Work Phone: [facility] Work Phone: 11-20-2019 10:57-0500 Diastolic blood pressure 77 mm[Hg] Irina Freedman MD Work Phone: [facility] Work Phone: 11-20-2019 10:57-0500 Heart rate 113 /min Irina Freedman MD Work Phone: [facility] Work Phone: 11-20-2019 10:57-0500 Systolic blood pressure 128 mm[Hg] Irina Freedman MD Work Phone: [facility] Work Phone: 11-20-2019 10:30-0500 SaO2% (BldA) [Mass fraction] 100 % Irina Freedman MD Work Phone: [facility] Work Phone: 11-20-2019 10:10-0500 Body height 157.5 cm Irina Freedman MD Work Phone: [facility] Work Phone: 11-20-2019 10:10-0500 Body mass index (BMI) [Ratio] 40.97 kg/m2 Irina Freedman MD Work Phone: [facility] Work Phone: 11-20-2019 10:10-0500 Body temperature 97.7 [degF] Irina Freedman MD Work Phone: [facility] Work Phone: 11-20-2019 10:10-0500 Body weight 101.61 kg Irina Freedman MD Work Phone: [facility] Work Phone: 11-16-2019 11:31-0500 Diastolic blood pressure 76 mm[Hg] Timi Rubio MD Work Phone: [facility] Work Phone: 11-16-2019 11:31-0500 Heart rate 95 /min Timi Rubio MD Work Phone: [facility] Work Phone: 11-16-2019 11:31-0500 Systolic blood pressure 129 mm[Hg] Timi Rubio MD Work Phone: [facility] Work Phone: 11-16-2019 09:47-0500 Body temperature 98.29 [degF] Timi Rubio MD Work Phone: [facility] Work Phone: 11-16-2019 09:47-0500 Respiratory rate 18 /min Timi Rubio MD Work Phone: [facility] Work Phone: 11-16-2019 09:38-0500 Body height 157.5 cm Timi Rubio MD Work Phone: [facility] Work Phone: 11-16-2019 09:38-0500 Body mass index (BMI) [Ratio] 40.97 kg/m2 Timi Rubio MD Work Phone: [facility] Work Phone: 11-16-2019 09:38-0500 Body weight 101.61 kg Timi Rubio MD Work Phone: [facility] Work Phone: 09-07-2019 14:13-0400 BMI (Body Mass Index) 35.78 kg/m2 Irina [facility], [place] 09-07-2019 14:13-0400 Body Temperature 98.4 [degF] Irina Freedman [facility], [place] 09-07-2019 14:13-0400 Body weight 91.63 kg Irina [facility] , [place] 09-07-2019 14:13-0400 BP Diastolic 85 mm[Hg] [facility] , [place] 09-07-2019 14:13-0400 BP Systolic 138 mm[Hg] [facility] , [place] 09-07-2019 14:13-0400 Height 160 cm [facility] , [place] 09-07-2019 14:13-0400 Pulse (Heart Rate) 92 /min [facility], [place] 09-07-2019 14:13-0400 Respiratory Rate 20 /min [facility], [place] Encounters Encounter Date Encounter Type Care Provider Facility Start: 03-05-2024 End: 03-05-2024 Office outpatient visit 15 minutes Zamzam Piedra ASSISTANT TO THE PRESIDENT - REGIONAL [employer] Work Phone: [facility] Comment on above: Wheezing (Primary Dx ); Subacute cough; Acute bronchitis, unspecified organism Start: 05-26-2023 Refill Radha hines MD Work Phone: [facility] Comment on above: Attention deficit hy peractivity disorder (ADHD), unspecified ADHD type Start: 05-01-2023 Telephone encounter Bethmeg Kerr ASSISTANT TO THE PRESIDENT - REGIONAL CRA Work Phone: [facility] Comment on above: medication request ( Adderall) Start: 04-28-2023 Refill Radha hines MD Work Phone: [facility] Comment on above: Attention deficit hy peractivity disorder (ADHD), unspecified ADHD type Start: 03-26-2023 Refill Radha hines MD Work Phone: [facility] Comment on above: Attention deficit hy peractivity disorder (ADHD), unspecified ADHD type Start: 12-31-2022 Telephone encounter Pablo alejo PhD Work Phone: [facility] ([place]) Comment on above: Behavioral Health Ap pointment Start: 12-28-2022 End: 12-28-2022 ambulatory RADHA [facility] Start: 12-28-2022 End: 12-28-2022 Encounter for general adult medical examination without abnormal findings RADHA DUDLEY [facility] Start: 12-28-2022 End: 12-28-2022 Initial preventive medicine new pt age 18-39yrs Radha Dudley MD Work Phone: [facility] Comment on above: Attention deficit hy peractivity disorder (ADHD), unspecified ADHD type (Primary Dx); Healthcare maintenance; Encounter for screening for lipid disorder Start: 12-28-2022 End: 12-28-2022 Patient encounter status Radha Dudley MD Work Phone: [facility] Start: 12-25-2022 Telephone encounter Pablo alejo PhD Work Phone: [facility]) Comment on above: Behavioral Health Ap pointment Start: 12-24-2022 Telephone encounter Mel mendoza MD Work Phone: [facility] Comment on above: Refill Request (amph etamine-dextroamphetamine XR (ADDERALL XR) 20 mg 24 hr capsule) Start: 12-23-2022 Telephone encounter Samara Campoverde MD Work Phone: [facility] Comment on above: Refill Request; Refi ll Request Start: 12-19-2022 End: 12-19-2022 [facility] Mel Nicholas MD Work Phone: [facility] Comment on above: Attention deficit hy peractivity disorder (ADHD), unspecified ADHD type (Primary Dx) Orders (NEUROPSYCH) Start: 12-19-2022 End: 12-19-2022 ambulatory MEL NICHOLAS Facility:[facility] Start: 11-23-2022 Refill Serg ortiz MD Work Phone: [facility] Comment on above: Refill Request Start: 11-08-2022 Telephone encounter Serg Garibay MD Work Phone: [facility] Comment on above: Patient Question Start: 10-17-2022 Refill Serg ortiz MD Work Phone: [facility] Comment on above: Refill Request Start: 09-22-2022 Telephone encounter Serg Garibay MD Work Phone: [facility] Comment on above: Refill Request Start: 08-23-2022 Refill Samara welch MD Work Phone: [facility] Comment on above: Refill Request Start: 07-13-2022 Refill Samara welch MD Work Phone: [facility] Comment on above: Refill Request Start: 07-05-2022 Refill Serg ortiz MD Work Phone: [facility] Comment on above: Refill Request Start: 05-11-2022 End: 05-13-2022 Evaluation and management of inpatient Timi Rubio MD Work Phone: [facility] Comment on above: S/P section (Primary Dx); Uterine size-date discrepancy in third trimester; COVID-19 affecting in second trimester; care, antepartum; History of section complicating ; Obesity in Start: 11-23-2019 End: 11-25-2019 Evaluation and management of inpatient Irina Freedman MD Work Phone: [facility] Comment on above: S/P (Prima ry Dx); Gestational hypertension, antepartum; Tachycardia; care, antepartum; Storage pool disease (HCC) Start: 11-20-2019 End: 11-20-2019 Subsequent hospital visit by physician Irina Freedman MD Work Phone: [facility] Start: 11-16-2019 End: 11-16-2019 Subsequent hospital visit by physician Timi Rubio MD Work Phone: [facility] Start: 09-07-2019 End: 09-07-2019 Subsequent hospital visit by physician Irina Freedman Work Phone: [facility] Comment on above: care, antep artum; Storage pool disease (HCC) Procedures Date Procedure Procedure Detail Performing Clinician Start: 05-15-2022 H/O: section S/P s ection Radha Dudley MD Work Phone: Start: 05-12-2022 Blood count hemoglobin Emma Flahertya DO Work Phone: Start: 05-11-2022 H/O: section History of section, low transverse Timi Rubio MD Work Phone: Start: 05-11-2022 Antibody screen Timi Rubio MD Work Phone: Start: 05-11-2022 Blood typing serolog ic abo Emma Edith DO Work Phone: Start: 05-11-2022 Comprehensive metabo lic panel Emmarianna Johnsonclaytondominique DO Work Phone: Start: 11-16-2021 H/O: section History of section complicating Timi Rubio MD Work Phone: Start: 03-21-2021 Adult depression screening assessment Serg Garibay MD Work Phone: Start: 11-24-2019 Blood count hemoglobin Jairo Fountain MD Work Phone: Start: 11-23-2019 Antibody screen Irina amado MD Work Phone: Comment on above: Test Performed by [facility], [address] [place] [id number] Start: 11-23-2019 Blood count complete automated Jairo Fountain MD Work Phone: Start: 11-23-2019 Blood typing serolog ic abo Jairo Fountain MD Work Phone: Start: 11-23-2019 PREPARE PLATELETS Deng Ferrara DO Work Phone: Start: 11-20-2019 Comprehensive metabo lic panel Ari Ellington MD Work Phone: Start: 11-16-2019 Comprehensive metabo lic panel Nathanael Bertrand MD Work Phone: Start: 05-25-2019 Microscopic observat ion [Identifier] in Cervix by Cyto stain Timi Rubio MD Work Phone: H/O: section S/P Irina Freedman MD Work Phone: H/O: section History of section complicating Timi Rubio MD Work Phone: Plan of Treatment Date Care Activity Detail Author Start: 2051 RSV Immunization age d 60 or older (1 - 1-dose 60+ series) RSV Immunization aged 60 or older (1 - 1-dose 60+ series) [facility] Start: 2041 Zoster Vaccines (1 of 2) Zoster Vacc jann (1 of 2) [facility] Start: 03-02-2032 DTaP/Tdap/Td vaccine (9 - Td or Tdap) DTaP/Tdap/Td vaccine (9 - Td or Tdap) [facility] Start: 03-02-2032 DTaP/Tdap/Td Vaccine s (9 - Td or Tdap) DTaP/Tdap/Td Vaccines (9 - Td or Tdap) [facility] Start: 10-07-2029 DTaP/Tdap/Td vaccine (8 - Td) DTaP/Tdap/Td vaccine (8 - Td) [facility] Work Phone: Start: 08-02-2024 Influenza vaccination Influenz a Vaccine (Season Ended) [facility] Start: 05-25-2024 PAP TESTING PAP TESTING [facility] Start: 08-02-2023 COVID-19 Vaccine ( season) COVID-19 Vaccine ( season) [facility] Start: 08-02-2023 Influenza vaccination Influenz a Vaccine (Season Ended) [facility] Start: 05-31-2023 Influenza vaccination Influenza Vacc ine (#1) [facility] Comment on above: Postponed from 08/02 (Patient Refused) Start: 02-23-2023 Diabetes mellitus screening Diabetes Screening [facility] Start: 12-28-2022 End: 12-28-2023 CBC panel - Blood by Automated count CBC Lab Routine Healthcare maintenance Expected: 12/28/2022 (Approximate), Expires: 12/28/2023 [facility] Comment on above: Expected: 12/28/2022 (Approximate), Expires: 12/28/2023 Start: 12-28-2022 End: 12-28-2023 Comprehensive metabolic 1998 panel - Serum or Plasma Comprehensive metabolic panel Lab Routine Healthcare maintenance Expected: 12/28/2022 (Approximate), Expires: 12/28/2023 [facility] Work Phone: Comment on above: Expected: 12/28/2022 (Approximate), Expires: 12/28/2023 Start: 12-28-2022 End: 12-28-2023 Lipid 1996 panel - Serum or Plasma Lipid panel Lab Routine Encounter for screening for lipid disorder Expected: 12/28/2022 (Approximate), Expires: 12/28/2023 [facility] Comment on above: Expected: 12/28/2022 (Approximate), Expires: 12/28/2023 Start: 12-02-2022 DEPRESSION ASSESSMENT DEPRESSION ASS ESSMENT [facility] Start: 08-02-2022 Influenza vaccination INFLUENZA (#1) [facility] Start: 05-25-2022 Cervical cancer screen Cervical canc er screen [place] Start: 05-25-2022 Screening for malign ant neoplasm of cervix [facility] Start: 03-21-2022 Adult depression screening assessment DEPRESSION SCREENING [facility] Start: 01-15-2022 COVID-19 VACCINE (4 - Booster for Moderna series) COVID-19 VACCINE (4 - Booster for Moderna series) [facility] Start: 12-02-2021 DEPRESSION ASSESSMENT DEPRESSION ASS ESSMENT [facility] Start: 2021 HPV TESTING HPV TESTING [facility] Start: 2021 Screening for malign ant neoplasm of cervix [facility] Start: 11-24-2019 End: 11-24-2019 Patient encounter procedure [facility] WELFARE VISITOR Start: 11-19-2019 End: 11-19-2019 Patient encounter procedure 11/19/2019 Routine Obstetrics and Gynecology Timi Rubio MD [address] [place] [address] [phone] [facility] WELFARE VISITOR Start: 10-23-2019 End: 10-23-2019 Office Visit 10/23/2019 Office Visit Hematology and Oncology Deng Tyson MD [address] [facility] [address] [place] [address] [phone] [facility] [place] Start: 09-23-2019 End: 09-23-2019 Routine 09/23/2019 Routine Obstetrics and Gynecology Sandra Krishnamurthy MD [address] [place] [address] [address] [place] [address] [phone] [facility] WELFARE VISITOR Start: 08-02-2019 Influenza vaccination Flu vaccine (# 1) [place] Start: 10-29-2016 DTaP/Tdap/Td vaccine (7 - Td) DTaP/Tdap/Td vaccine (7 - Td) [place] Start: 2012 Screening for malign ant neoplasm of cervix Pap Smear [facility] Start: 2010 Urine microalbumin profile DTAP,TDAP,TD (1 - Tdap) [facility] Start: 2009 Diabetes mellitus screening Diabetes Screening [facility] Start: 12-09-2006 HPV Vaccines (2 - 3- dose series) HPV Vaccines (2 - 3-dose series) [facility] Start: 10-08-2003 Varicella Vaccine (2 of 2 - 2-dose childhood series) Varicella Vaccine (2 of 2 - 2-dose childhood series) [facility] Start: 08-13-2003 Hepatitis B vaccine (2 of 3 - 3-dose primary series) Hepatitis B vaccine (2 of 3 - 3-dose primary series) [facility] Start: 2003 Depression Screen Depression Screen [facility] Start: 2003 Depression Screening Depression Scre ening [facility] Start: 11-12-1996 Pneumococcal Vaccine : Pediatrics (0 to 5 Years) and At-Risk Patients (6 to 64 Years) (2 of 3 - PCV) Pneumococcal Vaccine: Pediatrics (0 to 5 Years) and At-Risk Patients (6 to 64 Years) (2 of 3 - PCV) [facility] Start: 1996 COVID-19 Vaccine (1) COVID-19 Vaccin e (1) [facility] Start: 1991 COVID-19 VACCINE (#1) COVID-19 VACCI NE (#1) [facility] Start: 1991 HEPATITIS B (1 of 3 - 3-dose series) HEPATITIS B (1 of 3 - 3-dose series) [facility] Start: 1991 Lipid panel Lipid Panel [facility] End: 11-20-2019 Creatinine [Mass/volume] in Urine Creatinine, Random Urine Lab STAT One Time for 1 Occurrences starting 11/20/2019 until 11/20/[address] [facility] Work Phone: Comment on above: One Time for 1 Occur rences starting 11/20/2019 until 11/20/2019 End: 11-20-2019 nonstress test nonstress test OB Routine One Time for 1 Occurrences starting 11/20/2019 until 11/20/2019 [employer] [facility] Work Phone: Comment on above: One Time for 1 Occur rences starting 11/20/2019 until 11/20/2019 Incentive spirometry Incentive s pirometry Respiratory Care Routine Every 2hr while awake until discontinued starting 11/23/2019 [employer] Phone: Comment on above: Every 2hr while awak e until discontinued starting 11/23/2019 Initiate Oxygen Ther apy Protocol Initiate Oxygen Therapy Protocol Respiratory Care Routine Daily until discontinued starting 11/23/[address] [facility] Work Phone: Comment on above: Daily until disconti nued starting 11/23/2019 End: 05-12-2022 Oxygen therapy [Minimum Data Set] Initiate Oxygen Therapy Protocol Respiratory Care Routine As Needed until discontinued starting 05/11/2022 [employer] Work Phone: Comment on above: As Needed until disc ontinued starting 05/11/2022 Oxygen therapy [Mini mum Data Set] Initiate Oxygen Therapy Protocol Respiratory Care Routine Daily until discontinued starting 05/11/[address] [facility] Work Phone: Comment on above: Daily until disconti nued starting 05/11/2022 Pathogen Reduced Lekuoreduced Platelet Pheresis Pathogen Reduced Lekuoreduced Platelet Pheresis Blood Bank STAT 11/23/2019 1:08 PM EST [employer] Work Phone: End: 11-16-2019 Platelet Aggregation Platelet Aggregation Lab STAT One Time for 1 Occurrences starting 11/16/2019 until 11/16/2019 [facility] Work Phone: Comment on above: One Time for 1 Occur rences starting 11/16/2019 until 11/16/2019 Platelet Aggregation Platelet Ag gregation Lab STAT 11/16/2019 11:50 AM [employer] Work Phone: PREPARE PLATELETS, 1 Product PREPARE PLATELETS, 1 Product Blood Bank STAT 11/23/2019 1:08 PM [employer] Work Phone: End: 11-20-2019 Protein, urine, random Protein, urine, random Lab STAT One Time for 1 Occurrences starting 11/20/2019 until 11/20/2019 [facility] Work Phone: Comment on above: One Time for 1 Occur rences starting 11/20/2019 until 11/20/2019 Spirometry panel Incentive wilber metry Respiratory Care Routine Every 2hr while awake until discontinued starting 05/11/2022 [employer] Work Phone: Comment on above: Every 2hr while awak e until discontinued starting 05/11/2022 End: 11-16-2019 TYPE AND SCREEN TYPE AND SCREEN Blood Bank STAT One Time for 1 Occurrences starting 11/16/2019 until 11/16/2019 [employer] Work Phone: Comment on above: One Time for 1 Occur rences starting 11/16/2019 until 11/16/2019 TYPE AND SCREEN TYPE AND SCREEN Blood Bank STAT 11/16/2019 11:50 AM [employer] Work Phone: End: 09-07-2019 US OB Bedside US OB Bedside OB Routine One Time for 1 Occurrences starting 09/07/2019 until 09/07/2019 [facility] One Time for 1 Occur rences starting 09/07/2019 until 09/07/2019 Immunizations Immunization Date Immunization Notes Care Provider [facility] 05-11-2022 diphtheria, tetanus toxoids and acellular pertussis vaccine, unspecified formulation Timi Rubio MD Work Phone: [facility] Work Phone: 05-11-2022 measles, mumps and rubella virus vaccine Timi Rubio MD Work Phone: [facility] Work Phone: 03-02-2022 tetanus toxoid, reduced diphtheria toxoid, and acellular pertussis vaccine, adsorbed Timi Rubio MD Work Phone: [facility] 11-16-2021 influenza, injectable, quadrivalent, preservative free Timi Rubio MD Work Phone: [facility] 11-16-2021 influenza virus vaccine, unspecified formulation Radha Dudley MD Work Phone: [facility] 11-23-2019 diphtheria, tetanus toxoids and acellular pertussis vaccine, unspecified formulation Irina Freedman MD Work Phone: [facility] Work Phone: 11-23-2019 measles, mumps and rubella virus vaccine Irina Freedman MD Work Phone: [facility] Work Phone: 10-07-2019 influenza, injectable, quadrivalent, preservative free Timi Rubio MD Work Phone: [facility] Work Phone: 10-07-2019 tetanus toxoid, reduced diphtheria toxoid, and acellular pertussis vaccine, adsorbed Timi Rubio MD Work Phone: [facility] Work Phone: 11-11-2006 HPV, unspecified formulation Radha Dudley MD Work Phone: [facility] NEGATED: Highlighted row has not occurred!11-25-2019 measles, mumps and rubella virus vaccine Irina Freedman MD Work Phone: [facility] Comment on above: Deferred: - rubella immune NEGATED: Highlighted row has not occurred!11-25-2019 tetanus toxoid, reduced diphtheria toxoid, and acellular pertussis vaccine, adsorbed Irina Freedman MD Work Phone: [facility] Work Phone: Comment on above: Deferred: - administ ered prior to this admission Payers Date Payer Category Payer Unknown [id number] 2020 Unknown [employer] PPO [id number] 2020-Present [phone] [address] [place] [address] PPO [id number] 2020 Unknown [id number] 2018 Unknown [employer] [address] xxxxxxxxxxxx 2018-Present [phone] [address] [place] [address] xxxxxxxxxxxx [id number] Social History Date Type Detail Facility Start: 10-17-2018 End: 09-07-2019 Tobacco smoking status NHIS Never smoker [place] Start: 09-07-2019 End: 12-28-2022 Alcohol intake Never [place] Start: 04-15-2019 End: 04-20-2020 History SDOH Alcohol Frequency 1 [place] Start: 03-23-2019 [place] Start: 1990 Sex Assigned At Not on file [place] Start: 11-16-2019 End: 11-24-2019 Alcohol intake Lifetime non-drinker (finding) [facility] Work Phone: Start: 10-17-2018 End: 04-15-2019 Tobacco use and exposure Smokeless tobacco non-user [facility] Work Phone: Start: 05-11-2022 End: 12-28-2022 Alcohol intake Ex-drinker (finding) [facility] Work Phone: Start: 04-20-2020 End: 03-02-2022 History SDOH Social Connections Phone 5 [facility] Work Phone: Start: 04-20-2020 End: 03-02-2022 History SDOH Social Connections Restorationist 3 [facility] Work Phone: Start: 04-20-2020 End: 03-02-2022 History SDOH Social Connections Membership 2 [facility] Work Phone: Start: 03-02-2022 History SDOH Physica l Activity DPW 4 [facility] Work Phone: Start: 04-20-2020 End: 03-02-2022 History SDOH Physical Activity MPS 6 [facility] Work Phone: Start: 05-01-2022 End: 12-28-2022 Exposure to SARS-CoV-2 (event) Not sure [facility] Work Phone: Start: 03-21-2021 End: 12-19-2022 Alcohol intake Current drinker of alcohol (finding) [facility] Start: 10-27-2018 History SDOH Alcohol Comment soc [facility] Start: 04-20-2020 History SDOH Social Connections Meetings 98 [facility] Start: 04-19-2020 Education 17 [facility] Start: 12-28-2022 History of Social function [facility] Clinical Notes 11-20-2019 to 03-05-2024 Zamzam Piedra APRN - [facility] - 03/05/2024 2:40 PM EDTPatient InstructionsAttachmentsTelephone Encounter - Beth Medina MA - 05/01/2023 4:45 PM Bryn Dudley MD - 12/28/2022 7:20 AM EST Note Date & Type Note Facility 03-05-2024 History of Present illness Narrative Images from the original note were not included. [facility] [address] [facility] [address] Dept: [phone] Dept Loc: [phone] Subjective Claire Ramos is a 33 y.o. year old who presents to the office with the following complaint(s): Chief Complaint Patient presents with Cough X 3 weeks, chest congestion, went away for a few days then symptoms came back about 5 days ago used Albuterol treatment today at home Subjective Was ill with sinus congestion few weeks ago. Resolved. Began 4-5 days ago with deep cough, loss of voice. Feels fine despite cough. Cough This is a new problem. The current episode started in the past 7 days. The problem has been unchanged. The problem occurs constantly. The cough is Non-productive. Associated symptoms include nasal congestion, postnasal drip and rhinorrhea. Pertinent negatives include no chest pain, chills, ear congestion, ear pain, fever, headaches, heartburn, hemoptysis, myalgias, rash, sore throat, shortness of breath, sweats, weight loss or wheezing. Nothing aggravates the symptoms. She has tried nothing for the symptoms. The treatment provided no relief. There is no history of asthma, bronchiectasis, bronchitis, COPD, emphysema, environmental allergies or pneumonia. : Review of Systems Constitutional: Negative for activity change, appetite change, chills, fatigue, fever and weight loss. HENT: Positive for congestion, postnasal drip and rhinorrhea. Negative for dental problem, drooling, ear discharge, ear pain, facial swelling, hearing loss, mouth sores, nosebleeds, sinus pressure, sinus pain, sneezing, sore throat, tinnitus, trouble swallowing and voice change. Respiratory: Positive for cough. Negative for apnea, hemoptysis, choking, chest tightness, shortness of breath, wheezing and stridor. Cardiovascular: Negative for chest pain, palpitations and leg swelling. Gastrointestinal: Negative. Negative for heartburn. Musculoskeletal: Negative. Negative for myalgias. Skin: Negative. Negative for rash. Allergic/Immunologic: Negative for environmental allergies. Neurological: Negative for dizziness, tremors, seizures, syncope, facial asymmetry, speech difficulty, weakness, light-headedness, numbness and headaches. All other systems reviewed and are negative. No Known Allergies Current Outpatient Medications on File Prior to Visit Medication Sig Dispense Refill amphetamine-dextroamphetamine XR (Adderall XR) 20 MG 24 hr capsule Take 1 capsule (20 mg) by mouth in the morning. 30 capsule 0 No current facility-administered medications on file prior to visit. Patient Active Problem List Diagnosis Transient hypertension Itching S/P section ADHD (attention deficit hyperactivity disorder), inattentive type Social History Tobacco Use Smoking status: Never Smokeless tobacco: Never Substance Use Topics Alcohol use: Not Currently Objective Objective BP 129/81 (BP Location: Right arm) Pulse 98 Temp 36.3 C (97.3 F) (Temporal) Ht 5' 2 (1.575 m) Wt 180 lb (81.6 kg) LMP 02/07/2024 (Approximate) SpO2 99% BMI 32.92 kg/m Physical Exam Vitals and nursing note reviewed. Constitutional: General: She is awake. She is not in acute distress. Appearance: She is well-developed. She is ill-appearing. HENT: Head: Normocephalic. Right Ear: Hearing, tympanic membrane, ear canal and external ear normal. Left Ear: Hearing and external ear normal. Tympanic membrane is bulging. Nose: Mucosal edema present. Right Sinus: No maxillary sinus tenderness or frontal sinus tenderness. Left Sinus: No maxillary sinus tenderness or frontal sinus tenderness. Mouth/Throat: Lips: [place]. Mouth: Mucous membranes are moist. Pharynx: Uvula midline. Pharyngeal swelling, posterior oropharyngeal erythema and uvula swelling present. No oropharyngeal exudate. Cardiovascular: Rate and Rhythm: Regular rhythm. Tachycardia present. Heart sounds: Normal heart sounds. Pulmonary: Effort: Tachypnea and prolonged expiration present. Breath sounds: Examination of the right-upper field reveals decreased breath sounds. Examination of the left-upper field reveals decreased breath sounds. Examination of the right-middle field reveals decreased breath sounds. Examination of the left-middle field reveals decreased breath sounds. Examination of the right-lower field reveals wheezing and rhonchi. Examination of the left-lower field reveals wheezing and rhonchi. Decreased breath sounds, wheezing and rhonchi present. Comments: Lung mohan diminished. Faint high pitched wheezing upon inspiration. During voluntary cough scattered rhonchi audible. Musculoskeletal: Cervical back: Full passive range of motion without pain and neck supple. Lymphadenopathy: Head: Right side of head: No submental, submandibular, tonsillar or preauricular adenopathy. Left side of head: No submental, submandibular, tonsillar or preauricular adenopathy. Neurological: Mental Status: She is alert and oriented to person, place, and time. Discussed viral infection and then bacterial. Assessment/Plan 1. Wheezing - predniSONE (Deltasone) 20 MG tablet; Take 1 tablet (20 mg) by mouth daily for 5 days., Starting Sat03/05/2024, Until Tu03/10/2024, Normal - albuterol (2.5 MG/3ML) 0.083% nebulizer solution; Take 3 mL (2.5 mg) by nebulization in the morning and 3 mL (2.5 mg) at noon and 3 mL (2.5 mg) in the evening., Starting Sat03/05/2024, Until 04/04/2024, Normal - albuterol 108 (90 Base) MCG/ACT inhaler; Inhale 2 puffs every 6 hours as needed for wheezing., Starting Sat03/05/2024, Until 04/04/2024 at 2359, Normal 2. Subacute cough - dextromethorphan-guaiFENesin (Mucinex DM) 30-600 MG 12 hr tablet; Take 1 tablet by mouth in the morning and 1 tablet in the evening. Do all this for 10 days. Do not crush, chew, or split.., Starting Sat03/05/2024, Until Sat03/15/2024, Normal - doxycycline (Vibramycin) 100 MG capsule; Take 1 capsule (100 mg) by mouth 2 times daily for 10 days. Take with at least 8 ounces (large glass) of water, do not lie down for 30 minutes after, Starting Sat03/05/2024, Until Sat03/15/2024, Normal 3. Acute bronchitis, unspecified organism - dextromethorphan-guaiFENesin (Mucinex DM) 30-600 MG 12 hr tablet; Take 1 tablet by mouth in the morning and 1 tablet in the evening. Do all this for 10 days. Do not crush, chew, or split.., Starting Sat03/05/2024, Until Sat03/15/2024, Normal - doxycycline (Vibramycin) 100 MG capsule; Take 1 capsule (100 mg) by mouth 2 times daily for 10 days. Take with at least 8 ounces (large glass) of water, do not lie down for 30 minutes after, Starting Sat03/05/2024, Until 03/15/2024, Normal Mucinex DM for sinus congestion Prednisone for sinus and lung inflammation Albuterol MDI every 4-6 hours to help open lungs Patient's wellbeing is stable at this time. Patient is agreeable with plan and is cooperative with discharge at this time. Patient has been given information on their currently diagnosed illness from this visit as well as any other pertinent information based on their visit at this time. Pt has been educated on medications pertinent to this visit. Please see AVS. All questions were answered during evaluation as verbalized by the patient during encounter. If symptoms do not improve, worsen, or new symptoms develop, see PCP for further evaluation. CHITRA Dickson CNP 03/05/2024 2:57 PM documented in this encounter [facility] 03-05-2024 Instructions CHITRA Dickson CNP - 03/05/2024 2:40 PM EDT Mucinex DM for sinus congestion Prednisone for sinus and lung inflammation Albuterol MDI every 4-6 hours to help open lungs and use albuterol nebulizer when at home Begin Doxycycline The following attachments cannot be sent through Care Everywhere.Cough Discharge Instructions, Adult ([place])Acute Bronchitis Discharge Instructions, Adult ([place])documented in this encounter [facility] 05-01-[address] Dudley is out of the office today. Will be back tomorrow. Message has been forwarded to him. Patient does have appt with [facility] but can not see them until May 13 [facility] 05-01-[address] Dudley is out of the office today. Will be back tomorrow. Message has been forwarded to him. Patient does have appt with [facility] but can not see them until May 13 Reference 05/01/2023 [employer] message Name of caller: Claire Ramos Contact phone number: [phone] Relationship to Patient: Patient Provider: Radha Dudley Practice: [facility] Chief Complaint/Reason for Call: Patient following up on 05/01/[address] Dudley be able to call in the Adderall? She is concerned it won't be called in. Please call STEVAN. Also copying GPMESS since she sent MyChart message to patient. Best time of day caller can be reached: any Patient advised that office/PCP has 24-48 business hours to return their call: No documented in this encounter [facility] 05-01-2023 Telephone encounter Note Reference 05/01/2023 [employer] message Name of caller: Claire Ramos Contact phone number: [phone] Relationship to Patient: Patient Provider: Radha Dudley Practice: [facility] Chief Complaint/Reason for Call: Patient following up on 05/01/[address] Dudley be able to call in the Adderall? She is concerned it won't be called in. Please call STEVAN. Also copying GPMESS since she sent MyChart message to patient. Best time of day caller can be reached: any Patient advised that office/PCP has 24-48 business hours to return their call: No [facility] 05-01-2023 Telephone encounter Note Message released to patient as written. Patient's further questions if applicable: pt reported that she had initial consult with them yesterday but reported that it would be 2 weeks until she is able to be seen by PA for refill Were all questions from office addressed or relayed to the patient from encounter: Yes [facility] 05-01-2023 Miscellaneous Notes Message released to patient as written. Patient's further questions if applicable: pt reported that she had initial consult with them yesterday but reported that it would be 2 weeks until she is able to be seen by PA for refill Were all questions from office addressed or relayed to the patient from encounter: Yes Has she looked into any of the other psychiatry options provided? Does she have an appointment scheduled with them? [facility] [phone] also virtual visits [facility] [phone] Dr Ochoa [phone] documented in this encounter [facility] 04-30-2023 Telephone encounter Note Has she looked into any of the other psychiatry options provided? Does she have an appointment scheduled with them? [facility] [phone] also virtual visits [facility] [phone] Dr Ochoa [phone] [facility] 03-26-2023 Telephone encounter Note Does she have an appointment with psychiatry yet? Thanks [facility] 03-26-2023 Miscellaneous Notes Does she have an appointment with psychiatry yet? Thanks documented in this encounter [facility] 12-31-2022 Miscellaneous Notes Called patient and left voicemail regarding scheduling referral for Neuropsychological testing. documented in this encounter [facility] 12-28-2022 History of Present illness Narrative Images from the original note were not included. [facility] INTER[facility] MEDICINE [address] [facility] [address] Dept: [phone] Dept Loc: [phone] Visit type: New patient Reason for Visit: New Patient ([facility] Care- ) Assessment and Plan 1. Attention deficit hyperactivity disorder (ADHD), unspecified ADHD type [place] [facility] [place] - Make referral to psychiatry for further evaluation and treatment 2. Healthcare maintenance - Comprehensive metabolic panel - CBC 3. Encounter for screening for lipid disorder - Lipid panel Follow up if symptoms worsen or fail to improve. Subjective HPI Claire is a 32-year-old woman with past medical history of ADHD who presents today to [facility]. Regarding ADHD: Reports that she was diagnosed with ADHD in second grade. Has been taking medications to help control her symptoms since. Has been on Adderall for a long time. Reports that symptoms are controlled when she is taking this. She had to stop during her 2 pregnancies and reports that she struggled with her ADHD symptoms during those times. Her previous PCP retired and was her prescriber for this medication. She is now looking for a new prescriber. Discussed age appropiate vaccinations. Discussed age appropriate screening. Discussed age appropriate cancer screening. Discussed lifestyle intervention: healthy diet and exercise. Review of Systems Constitutional: Negative for chills and fever. Respiratory: Negative for cough and shortness of breath. Cardiovascular: Negative for chest pain and leg swelling. Gastrointestinal: Negative for abdominal pain, blood in stool, constipation, diarrhea, nausea and vomiting. Musculoskeletal: Negative for arthralgias and myalgias. Neurological: Negative for light-headedness and headaches. No Known Allergies Outpatient Medications Prior to Visit Medication Sig Dispense Refill amphetamine-dextroamphetamine XR (Adderall XR) 20 MG 24 hr capsule Take 20 mg by mouth in the morning. No facility-administered medications prior to visit. 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 Endometriosis had cysts on ovarys Hypertension gestational hypertension Migraines Storage pool disease (HCC) Social History Tobacco Use Smoking status: Never Smokeless tobacco: Never Substance Use Topics Alcohol use: Not Currently Past Surgical History: Procedure Laterality Date SECTION (HISTORICAL) x 2 WISDOM TOOTH EXTRACTION 2009 Family History Problem Relation Name Age of Onset Clotting disorder Maternal Grandmother Cancer Paternal Grandfather Diabetes Father Clotting disorder Mother Eclampsia Mother Ovarian cancer Neg Hx Breast cancer Neg Hx Colon cancer Neg Hx Objective BP 125/88 (BP Location: Left arm, Patient Position: Sitting, BP Cuff Size: Large adult) Pulse 97 Temp 36.8 C (98.3 F) Ht 5' 2 (1.575 m) Wt 198 lb 6.4 oz (90 kg) LMP 12/14/2022 (Approximate) SpO2 99% BMI 36.29 kg/m Physical Exam Constitutional: General: She is not in acute distress. Appearance: Normal appearance. Cardiovascular: Rate and Rhythm: Normal rate and regular rhythm. Pulses: Normal pulses. Heart sounds: Normal heart sounds. No murmur heard. No gallop. Pulmonary: Effort: Pulmonary effort is normal. Breath sounds: Normal breath sounds. No wheezing. Abdominal: General: Bowel sounds are normal. Palpations: Abdomen is soft. Tenderness: There is no abdominal tenderness. There is no guarding or rebound. Musculoskeletal: Right lower leg: No edema. Left lower leg: No edema. Neurological: Mental Status: She is alert. Radha Dudley MD documented in this encounter [facility] 12-26-2022 Miscellaneous Notes Left detailed message explaining that Dr. Nicholas sent the prescription but she will need to schedule for her neuropsychology testing STEVAN. Advised that a message was left for the patient by the psych department yesterday and that testing will be required for continuation of treatment. Deepa Garcia MA I have sent a script for Adderall. Pt is advised to follow up with Psychology for testing. She was reached by them yesterday to schedule an appointment. She cannot abruptly stop using it due to halfway usage through her previous PCP, Dr. Garibay. But she needs to undergo neuropsychology testing prior to continuation of treatment plan. PDMP website checked and validated. All prescriptions have been APPROPRIATELY filled. No suspicious activity was identified. 12/26/2022 by Mel Nicholas MD Pt called stating she is waiting to hear back to get scheduled for her neuropsych testing to take over her Adderall. Pt states she was advised by Dr. Nicholas to see if Dr. Garibay's office will refill amphetamine-dextroamphetamine XR (ADDERALL XR) 20 mg 24 hr capsule. That office is no longer able to do refills since pt established care here. Pt is requesting a refill on amphetamine-dextroamphetamine XR (ADDERALL XR) 20 mg 24 hr capsule since she has a couple days left until she can get her testing done. Please advise. Bernarda Galvan documented in this encounter [facility] 12-25-2022 Miscellaneous Notes Called patient and left voicemail to schedule referral for Neuropsychology. documented in this encounter [facility] 12-24-2022 Miscellaneous Notes Sent my chart message back to patient advising that Dr Campoverde would only continue to send in her refills until she found new PCP, She had visit on 12/19 and [address] care with Dr. Gordon office,. We cannot send in the refills for her. She will need to follow up with their office regarding the Adderall prescription. Yarely Coto MA Patient states she is out of RX and that Dr. Nicholas is making her go through testing before prescribing RX. Patient is upset as she has been on this RX for years and does not feel that she needs the testing. Patient states she is not sure if she wanting to be set and stone with Dr. Nicholas and she may try other doctor's. Patient is asking how Dr. Campoverde suggest patient handle her medication as per patient states, Dr. Campoverde agreed to refilling RX until she found a new physician. I did explain to her that Dr. Campoverde is not her PCP and she has established, patient states she wants to try other doctors and Dr. Campoverde told her she'd take over her medication for her in meantime. Please notify patient. documented in this encounter [facility] 12-19-2022 Note HNO ID: [id number] Author: Mel Nicholas MD Service: ? Author Type: Physician Type: Progress Notes Filed: 12/19/2022 11:48 AM Note Text: VIRTUAL VISIT PROGRESS NOTE This is a virtual visit. It required patient-provider interaction for the medical decision making as documented below. Platform Used: my chart History of Present Illness: Claire Ramos is a 32 year old female seen for new patient. She states that she has a past medical history of ADHD, she was diagnosed with it in second grade. She had trouble focusing and had struggled with throughout her school life. 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 Garibay, her previous PCP. She has been continued on Adderall. She reports more improvement in her symptoms. 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 She would like to continue the Adderall because it helps her focus. She is a mother of 2 kids and with the daily stress, the medication is helpful. She has never had a neuropsychological evaluation as an adult to be diagnosed with ADHD. She did hold Adderall during both her pregnancies, most recently she had her daughter in May and Adderall was resumed in July 2022. HPI HISTORY REVIEWED (electronic chart updated): PAST MEDICAL HISTORY Diagnosis Date ADHD Bleeding disorder (HCC) Storage Pool History reviewed. No pertinent surgical history. FAMILY HISTORY Problem Relation Age of Onset Hypertension Mother Hypertension Father Diabetes Father Diabetes Maternal Grandmother Hypertension Maternal Grandmother Hypertension Maternal Grandfather Social History Tobacco Use Smoking status: Never Smokeless tobacco: Never Substance Use Topics Alcohol use: Yes Comment: soc Drug use: No ALLERGIES No Known Allergies Current Outpatient Medications Medication Sig amphetamine-dextroamphetamine XR (ADDERALL XR) 20 mg 24 hr capsule Take 1 capsule by mouth once daily for 30 days. acetaminophen 325 mg-caffeine 40 mg-butalbital 50 mg (FIORICET) per tablet Take 1 tablet by mouth every 6 hours as needed. No current facility-administered medications for this visit. REVIEW OF SYSTEMS Review of Systems Constitutional: Negative for malaise/fatigue. Respiratory: Negative for shortness of breath. Cardiovascular: Negative for chest pain and palpitations. Psychiatric/Behavioral: The patient is not nervous/anxious. PHYSICAL EXAMINATION VIDEO EXAM: (if completed, performed via video enabled technology) Video Physical examination limited due to the restrictions of audio/visual virtual visit. Physical Exam Constitutional: Appearance: Normal appearance. HENT: Head: Normocephalic and atraumatic. Pulmonary: Effort: No respiratory distress. Neurological: Mental Status: She is alert. ASSESSMENT AND PLAN: ASSESSMENT/PLAN: 1. Attention deficit hyperactivity disorder (ADHD), unspecified ADHD type - ICD9: 314.01, ICD10: F90.9 This is a very pleasant 32-year-old female diagnosed with ADHD in second grade. She has been on Adderall and it helps her focus. Her prescriptions have been continued by her previous PCP. She did hold Adderall during her last year and was started back in July 2022. Advised patient to have a neuropsychological evaluation to be diagnosed with adult ADHD she verbalizes understanding of the same. - NEUROPSYCHOLOGICAL TESTING CONSULT MD Mel Cosme MD [facility] 12-19-2022 Miscellaneous Notes Referral placed in [facility] portal to NEUROPSYCHOLOGICAL TESTING . Confirmation number: [id number] Bernarda Galvan documented in this encounter [facility] 12-19-2022 History of Present illness Narrative VIRTUAL VISIT PROGRESS NOTE This is a virtual visit. It required patient-provider interaction for the medical decision making as documented below. Platform Used: my chart History of Present Illness: Claire Ramos is a 32 year old female seen for new patient. She states that she has a past medical history of ADHD, she was diagnosed with it in second grade. She had trouble focusing and had struggled with throughout her school life. 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 Garibay, her previous PCP. She has been continued on Adderall. She reports more improvement in her symptoms. 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 She would like to continue the Adderall because it helps her focus. She is a mother of 2 kids and with the daily stress, the medication is helpful. She has never had a neuropsychological evaluation as an adult to be diagnosed with ADHD. She did hold Adderall during both her pregnancies, most recently she had her daughter in May and Adderall was resumed in July 2022. HPI HISTORY REVIEWED (electronic chart updated): PAST MEDICAL HISTORY Diagnosis Date ADHD Bleeding disorder (HCC) Storage Pool History reviewed. No pertinent surgical history. FAMILY HISTORY Problem Relation Age of Onset Hypertension Mother Hypertension Father Diabetes Father Diabetes Maternal Grandmother Hypertension Maternal Grandmother Hypertension Maternal Grandfather Social History Tobacco Use Smoking status: Never Smokeless tobacco: Never Substance Use Topics Alcohol use: Yes Comment: soc Drug use: No ALLERGIES No Known Allergies Current Outpatient Medications Medication Sig amphetamine-dextroamphetamine XR (ADDERALL XR) 20 mg 24 hr capsule Take 1 capsule by mouth once daily for 30 days. acetaminophen 325 mg-caffeine 40 mg-butalbital 50 mg (FIORICET) per tablet Take 1 tablet by mouth every 6 hours as needed. No current facility-administered medications for this visit. REVIEW OF SYSTEMS Review of Systems Constitutional: Negative for malaise/fatigue. Respiratory: Negative for shortness of breath. Cardiovascular: Negative for chest pain and palpitations. Psychiatric/Behavioral: The patient is not nervous/anxious. PHYSICAL EXAMINATION VIDEO EXAM: (if completed, performed via video enabled technology) Video Physical examination limited due to the restrictions of audio/visual virtual visit. Physical Exam Constitutional: Appearance: Normal appearance. HENT: Head: Normocephalic and atraumatic. Pulmonary: Effort: No respiratory distress. Neurological: Mental Status: She is alert. ASSESSMENT & PLAN: ASSESSMENT/PLAN: 1. Attention deficit hyperactivity disorder (ADHD), unspecified ADHD type - ICD9: 314.01, ICD10: F90.9 This is a very pleasant 32-year-old female diagnosed with ADHD in second grade. She has been on Adderall and it helps her focus. Her prescriptions have been continued by her previous PCP. She did hold Adderall during her last year and was started back in July 2022. Advised patient to have a neuropsychological evaluation to be diagnosed with adult ADHD she verbalizes understanding of the same. - NEUROPSYCHOLOGICAL TESTING CONSULT MD Mel Cosme MD documented in this encounter [facility] 11-23-2022 Miscellaneous Notes The following approved medication requests have been transmitted electronically. Requested Prescriptions Signed Prescriptions Disp Refills amphetamine-dextroamphetamine XR (ADDERALL XR) 20 mg 24 hr capsule 30 capsule 0 Sig: Take 1 capsule by mouth once daily for 30 days. Authorizing Provider: SERG GARIBAY MD documented in this encounter [facility] 11-08-2022 Miscellaneous Notes Spoke with Pt ireneet her know that scripts will be filled till she can find a new pcp. Patient called wanting to know after Dr Garibay leaves if Dr Campoverde will refill her Adderall until she finds another pcp. Please follow up with patient. documented in this encounter [facility] 10-18-2022 Miscellaneous Notes The following approved medication requests have been transmitted electronically. Requested Prescriptions Signed Prescriptions Disp Refills amphetamine-dextroamphetamine XR (ADDERALL XR) 20 mg 24 hr capsule 30 capsule 0 Sig: Take 1 capsule by mouth once daily for 30 days. Do not start before October 21, 2022. Authorizing Provider: SERG GARIBAY MD documented in this encounter [facility] 09-24-2022 Miscellaneous Notes This was already done. Serg Garibay MD documented in this encounter [facility] 08-23-2022 Miscellaneous Notes The following approved medication requests have been transmitted electronically. Requested Prescriptions Signed Prescriptions Disp Refills amphetamine-dextroamphetamine XR (ADDERALL XR) 20 mg 24 hr capsule 30 capsule 0 Sig: Take 1 capsule by mouth once daily for 30 days. Authorizing Provider: SERG GARIBAY MD Patient phones requesting refills as follows: Requested Prescriptions Pending Prescriptions Disp Refills amphetamine-dextroamphetamine XR (ADDERALL XR) 20 mg 24 hr capsule 30 capsule 0 Sig: Take 1 capsule by mouth once daily for 30 days. Please review and advise. Yarely Coto MA documented in this encounter [facility] 07-06-2022 Miscellaneous Notes Patient phones requesting refills as follows: Pending Prescriptions Disp Refills DEXTROAMPHETAMINE-AMPHETAMINE ER 20 MG 24HR CAPSULE,EXTEND RELEASE 30 capsule 0 Sig: Take 1 capsule by mouth once daily for 30 days. AD Class: C-II ABBI: No Please review and advise. Lyudmila Castillo MA documented in this encounter [facility] 05-13-2022 History of Present illness Narrative Nutrition rescreen completed. Patient assigned a level 1. Images from the original note were not included. POST OPERATIVE DAY # 1 Claire Ramos is a 31 y.o. who was seen & examined today. Her was complicated by: Patient Active Problem List Diagnosis ADHD (attention deficit hyperactivity disorder), inattentive type Itching Transient hypertension History of section complicating Obesity in COVID-19 affecting in second trimester care, antepartum Uterine size-date discrepancy in third trimester History of section, low transverse Today she is doing well without any chief complaint. Her lochia is light. She denies chest pain, shortness of breath, headache and blurred vision. She is ambulating well. Flatus present. Bowel movement absent. Voiding spontaneously. She is tolerating solids. Pain is controlled yes. Vital Signs: Vitals: 05/11/22 2002 05/12/22 0000 05/12/22 0300 05/12/22 0835 BP: 116/76 (!) 145/76 104/62 114/73 Pulse: 95 95 92 96 Resp: 16 18 16 Temp: 97 F (36.1 C) 97.6 F (36.4 C) 97.5 F (36.4 C) 98.5 F (36.9 C) TempSrc: Temporal Temporal Temporal Temporal SpO2: 97% 98% 95% 97% Weight: Height: Urine Input & Output last 24hrs: No intake or output data in the 24 hours ending 05/13/22 0441 Physical Exam: GENERAL APPEARANCE: alert, well appearing, in no apparent distress ABDOMEN : benign non-tender, without masses or organomegaly palpable EXTREMITIES: no redness or tenderness in the calves or thighs, no edema Desc; incision: healing well, no drainage, no erythema, no swelling, well approximated Labs: Lab Results Component Value Date WBC 13.8 (H) 05/11/2022 HGB 8.5 (L) 05/12/2022 HCT 32.5 (L) 05/11/2022 MCV 78.4 (L) 05/11/2022 PLT 342 05/11/2022 A POS Antibody Screen: Antibody Screen Date Value Ref Range Status 05/11/2022 NEG NA Final Lab Results Component Value Date RUBELLAIGG 59.6 12/13/2021 LABOR DELIVERY ??? SCD's ONLY (labor through ambulation) SCD's PLUS Prophylactic Anticoagulation until discharge SCD's PLUS Prophylactic Anticoagulation for 6 weeks SCD's PLUS Therapeutic Anticoagulation for 6 weeks Vaginal Delivery [] BMI ? 40 kg/m2 Delivery All patients Vaginal Delivery [] BMI ? 40 kg/m2 AND [] Antepartum hospitalization ? 72 hours within the past month Delivery 1 Major Risk Factor: [] BMI ? 35 kg/m2 [] Low Risk Thrombophilia [] PPH+RBCs, IR, or operation [] Infection+Antibiotics [] Antepartum hospitalization ? 72 hours within the past month [] PMH: Sickle Cell, SLE, Cardiac Dz, Active IBD, Active Cancer, Nephrotic Syndrome OR 2 Minor Risk Factors: [] Multiple gestation [] Age > 40 [] PPH ? 1,000cc [] (+)FMH of VTE [] Smoker [] Preeclampsia [] BMI ? 40 kg/m2 AND [] Low Risk Thrombophilia OR ANY OF THE FOLLOWING: [] High Risk Thrombophilia without prior VTE [] Low Risk Thrombophilia with (+)FMH of VTE [] Any single prior VTE ANY OF THE FOLLOWING: [] Already on LMWH/UFH [] Multiple prior VTE [] High Risk Thrombophilia with prior VTE Low Risk Thrombophilia: FVL (heterozygous), Prothrombin (heterozygous), Protein C, Protein S High Risk Thrombophilia: FVL (homozygous), Prothrombin (homozygous), FVL+Prothrombin (heterozygous), Antithrombin III, APLS Assessment/Plan: 1. Claire Ramos is a 31 y.o. POD # 2 s/p RLTCS 2/2 labor 2. Care - Doing well, VSS - Female - Breast feeding - Contraception: Per Private Attending - Encourage ambulation and use of incentive spirometer - D/C dickson catheter and saline lock IV on POD #1 - Postop Hb 8.5 - VTE Prophylaxis: Prophylactic Dosing until Discharge 3. ghtn - preeclampsia labs normal, BP mostly normotensive, rare mild range, asymptomatic 4. Obesity - BMI 39 5. Disposition: Anticipate discharge today per private attending's discretion Based on my clinical assessment, this patient is safe for self discharge (does not need transport by wheelchair) if she so chooses. Provider's Name: MD Cecy Raya MD 05/13/2022, 4:41 AM Images from the original note were not included. POST OPERATIVE DAY # 1 Claire Ramos is a 31 y.o. who was seen & examined today. Her was complicated by: Patient Active Problem List Diagnosis ADHD (attention deficit hyperactivity disorder), inattentive type Itching Transient hypertension History of section complicating Obesity in COVID-19 affecting in second trimester care, antepartum Uterine size-date discrepancy in third trimester History of section, low transverse Today she is doing well without any chief complaint. Her lochia is light. She denies chest pain, shortness of breath, headache, blurred vision and fever or chills. She is ambulating well. Flatus present. Bowel movement absent. Voiding spontaneously. She is tolerating solids. Pain is controlled yes. Vital Signs: Vitals: 05/11/22 1525 05/11/22 2002 05/12/22 0000 05/12/22 0300 BP: 135/80 116/76 (!) 145/76 104/62 Pulse: 93 95 95 92 Resp: 16 16 18 Temp: 97.9 F (36.6 C) 97 F (36.1 C) 97.6 F (36.4 C) 97.5 F (36.4 C) TempSrc: Axillary Temporal Temporal Temporal SpO2: 97% 97% 98% 95% Weight: Height: Urine Input & Output last 24hrs: Intake/Output Summary (Last 24 hours) at 05/12/2022 0640 Last data filed at 05/12/2022 0000 Gross per 24 hour Intake 1100 ml Output 2710 ml Net -1610 ml Physical Exam: GENERAL APPEARANCE: alert, well appearing, in no apparent distress ABDOMEN : benign non-tender, without masses or organomegaly palpable EXTREMITIES: no redness or tenderness in the calves or thighs NEUROLOGIC: alert, oriented, normal speech, no focal findings or movement disorder noted Desc; incision: incision C/D/I Labs: Lab Results Component Value Date WBC 13.8 (H) 05/11/2022 HGB 8.5 (L) 05/12/2022 HCT 32.5 (L) 05/11/2022 MCV 78.4 (L) 05/11/2022 PLT 342 05/11/2022 A POS Antibody Screen: Antibody Screen Date Value Ref Range Status 05/11/2022 NEG NA Final Lab Results Component Value Date RUBELLAIGG 59.6 12/13/2021 LABOR DELIVERY ??? SCD's ONLY (labor through ambulation) SCD's PLUS Prophylactic Anticoagulation until discharge SCD's PLUS Prophylactic Anticoagulation for 6 weeks SCD's PLUS Therapeutic Anticoagulation for 6 weeks Vaginal Delivery [] BMI ? 40 kg/m2 Delivery All patients Vaginal Delivery [] BMI ? 40 kg/m2 AND [] Antepartum hospitalization ? 72 hours within the past month Delivery 1 Major Risk Factor: [] BMI ? 35 kg/m2 [] Low Risk Thrombophilia [] PPH+RBCs, IR, or operation [] Infection+Antibiotics [] Antepartum hospitalization ? 72 hours within the past month [] PMH: Sickle Cell, SLE, Cardiac Dz, Active IBD, Active Cancer, Nephrotic Syndrome OR 2 Minor Risk Factors: [] Multiple gestation [] Age > 40 [] PPH ? 1,000cc [] (+)FMH of VTE [] Smoker [] Preeclampsia [] BMI ? 40 kg/m2 AND [] Low Risk Thrombophilia OR ANY OF THE FOLLOWING: [] High Risk Thrombophilia without prior VTE [] Low Risk Thrombophilia with (+)FMH of VTE [] Any single prior VTE ANY OF THE FOLLOWING: [] Already on LMWH/UFH [] Multiple prior VTE [] High Risk Thrombophilia with prior VTE Low Risk Thrombophilia: FVL (heterozygous), Prothrombin (heterozygous), Protein C, Protein S High Risk Thrombophilia: FVL (homozygous), Prothrombin (homozygous), FVL+Prothrombin (heterozygous), Antithrombin III, APLS Assessment/Plan: 1. Claire Ramos is a 31 y.o. POD # 1 s/p RLTCS 2/2 labor 2. Care - Doing well, VSS - Female - Breast feeding - Contraception: Per Private Attending - Encourage ambulation and use of incentive spirometer - D/C dickson catheter and saline lock IV on POD #1 - Postop Hb 8.5 - VTE Prophylaxis: Prophylactic Dosing until Discharge 3. gHTN -PreE labs negative on admission -BP normotensive to mild range -Asx this AM 4. Obesity -BMI 39 -Continue lovenox and SCDs for VTE ppx 5. Disposition: Continue current care Based on my clinical assessment, this patient is safe for self discharge (does not need transport by wheelchair) if she so chooses. Provider's Name: MD Yarely Raya, DO 05/12/2022, 6:40 AM Hospital Care (Independent): I independently saw and evaluated the patient. I agree with the findings and plan of care as documented in the resident's note. 1645: Patient ambulated to bathroom independently. Pads changed. Moderate amount of bleeding on pads. No clots. Patient tolerated well. Images from the original note were not included. Department of Obstetrics and Gynecology Labor and Delivery Triage Note CHIEF COMPLAINT: Contractions HISTORY OF PRESENT ILLNESS: The patient is a 31 y.o. 37w0d. OB History 2 Para 1 Term 1 AB Living 1 SAB IAB Ectopic Molar Multiple Live Births 1 Patient presents with a chief complaint as above. Patient reporting feeling contractions every 3-5 minutes and moderate in intensity. She denies DFM/VB/LOF. She does not want to TOLAC. She last ate at 1900 yesterday. 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 She has never used smokeless tobacco. She reports previous alcohol use. She reports that she does not use drugs. MEDICATIONS: Prior to Admission medications Medication Sig Start Date End Date Taking? Authorizing Provider MV & Min w/FA-DHA ( GUMMIES PO) Take by mouth Historical ProviderMD acetaminophen (TYLENOL) 500 MG tablet Take 500 mg by mouth as needed Patient not taking: Reported on 03/16/2022 Historical ProviderMD CARE: Complicated by: 1. Hx of CD 2. Hx of gHTN 3. Transient HTN REVIEW OF SYSTEMS: Pertinent items are noted in HPI. APPEARANCE: Pain: no PHYSICAL EXAM: Vital Signs: Elevated BPs/Respirations normal effort Vitals: 05/11/22 0129 Weight: 215 lb (97.5 kg) Height: 5' 2 (1.575 m) Abdomen: soft, NT, ND, no rebound/guarding, no incisional pain Uterus: gravid/non-tender LE Edema: trace Speculum Exam: Deferred heart rate: Category I Cervix: Closed Contraction frequency: regular, every 2-3 minutes Membranes: Intact RESULTS: NST: N/A GENERAL LABS: No results found for this or any previous visit (from the past 24 hour(s)). TRIAGE COURSE: Patient carla every 2-3 minutes. Mild range BP in triage and previous mild range BP in office, meets criteria for gestational HTN. Will proceed with RCD. IMPRESSION: Previous C/S DISCUSSED WITH C PROVIDER: Dr. Rubio DISPOSITION: Admit to L&D documented in this encounter [facility] Work Phone: 05-12-2022 Hospital Discharge instructions Cecy Barrientos MD - 05/12/2022 Images from the original note were not included. Thank you for allowing us to care of you at [facility]. This time can be one of many emotional ups and downs and many changes in your life. In these first weeks try to take good care of yourself because you will likely feel very tired. It may take 4 to 6 weeks to feel like yourself again, and possibly longer if you had a . FOLLOW-UP: Your follow-up care is a mcneill part of your treatment and safety. Follow-up with your OB providerin 4 weeks or as specified by your OB provider. If you had high blood pressure, visit your OB provider within 3-5 days after being home. Most women's blood pressure will return to pre- levels after delivery. However, some patients continue to have problems with their blood pressure, and some even get worse. Very high blood pressure can lead to seizures or stroke which can be life threatening. If ordered by your provider, take your blood pressure at home and call your OB provider if you have a high reading. Your OB provider can write you a prescription for a blood pressure monitor if you do not have one. Be sure to make and go to all appointments, and call your OB provider if you are having problems. It's also a good idea to know your test results and keep a list of the medicines you take. BLEEDING Vaginal bleeding will decrease in amount over the next few weeks. Bleeding may chicken picker and then decrease again around 7-10 days . Use pads instead of tampons for the bloody flow that may last as long as 2 weeks. You will notice that as your activity increases, your flow may increase. Call your provider if you are saturating one maxi pad in an hour & passing large clots for 3 hours or more. ACTIVITY NO SEXUAL activity for 6 weeks or until advised by your OB provider; Nothing in vagina: intercourse, tampons, or douching. Begin to think about your reproductive life plan. Talk to your OB provider about if and when you would like another baby in the future. The recommendation for safe spacing is 18-24 months. Showering is okay; NO tub baths, swimming, or hot tubs. Gradually increase your activity. Resume exercise regimen only after advised by your )OB provider. Avoid lifting anything heavier than ten pounds or a gallon of milk for six weeks. Avoid driving 1 week for vaginal delivery and 2 weeks for section, or longer if you are on prescription pain medicine unless otherwise instructed by your OB provider . Rise slowly from a lying to sitting and then a standing position. Climb stairs carefully. You may feel tired or have a lack of energy. You may continue your vitamin to replenish nutrients post-delivery. Nap when whenever you can to catch up on sleep. EMOTIONS You may feel chase, sad, teary, & overwhelmed for the first 2 weeks ; however, feelings of depression may occur any time within the first year after delivery. Contact your OB provider if you feel you may be showing signs of depression, or have thoughts of harming yourself or or anyone.. WOUND CARE For Vaginal Delivery: Shower daily, and cleanse your perineum (bottom) with mild soap from front to back. Use the plastic squirt bottle until bleeding stops each time you use the restroom instead of wiping with toilet paper. Ease soreness of hemorrhoids and the area between your vagina and rectum with ice compresses or witch erwin pads. If used, stitches will dissolve in 4-6 weeks on their own. You may use a sitz bath or soak in a clean tub with drain open and water running for comfort. Kegel exercises will help restore bladder control. To do these tighten your muscles as if you were stopping your urine flow. Hold for a few seconds and then relax. Do these throughout the day. For Section Delivery: Keep your incision clean and dry. If you had steri-strips you may remove these once they start falling off. If you have saeed they need to be removed 3-10 daysafter delivery. If you have steri-strips, remove after 7 - 10 days. Do not wear clothing that irritates the incision line. If your incision is in a crease that is not dry, use a hair-dryer to dry the area 3 times a day. If you develop fever, shaking chills, redness, swelling, drainage or discharge from your wound, or if your wound looks like it is coming apart call your provider immediately. BREAST CARE If you develop a warm, red, tender area on your breast or develop a fever contact your OB provider. If your breasts become engorged ask your provider because treatment can vary according to your needs. DIET & CONSTIPATION Eat a well-balanced diet focusing on foods high in fiber and protein such as: whole grain cereals and breads, fruits and vegetables and legumes (eg, beans, lentils) Drink 8-10 glasses of fluids daily, especially water. Limit caffeine. To avoid constipation you may take a mild eavc-djn-ckwifzd stool softener (such as colace) as recommended by your OB provider. SWELLING Try to keep your legs elevated when you are sitting or lying down. Stay hydrated and take walks. If you had high blood pressure, weigh yourself at the same time each day. Write down your weight and take the record to your OB provider appointment. MEDICATIONS Take all medications prescribed for you exactly as ordered. Don't take any drugs not prescribed to you or over the counter medicines unless recommended by your provider. Don't smoke. WHEN TO CALL THE OB PROVIDER Signs of infection, including fever and chills Increased bleeding: soaking more than one pad an hour or passing clots the size of an egg or larger. Wounds that become red, swollen or drain pus Vaginal discharge that smells foul New pain, swelling, or tenderness in your legs Pain that you can't control with the medications you've been given Pain, burning, urgency or frequency of urination, or persistent bleeding in the urine Cough, shortness of breath, or serious difficulty catching your breath Chest pain or pain in the upper right area of your belly Headache (very painful) or vision changes like blurry or double vision, seeing spots or 'auras' Swelling that is worse or weight gain of more than 3 pounds in 3 days Depression, suicidal thoughts, or feelings of harming someone else Breasts that are hot, red and accompanied by fever Any cracking or bleeding from the nipple or areola (the dark-colored area of the breast) You may have been given a magnet like this: If so, we encourage you to use it on your refrigerator as a reminder of when to call your OB provider. IIn case of an emergency, call 911 immediately. If you are Covid-19 positive or a Person Under Investigation (PUI) These could be signs that your COVID-19 symptoms are worsening and you may need emergency care: You are severely dizzy or lightheaded. You are confused or can't think clearly. Your face and lips have a blue color. You are unable to respond to others or are very hard to wake up. Prevention steps for People with confirmed or suspected COVID-19 (including persons under investigation) who do not need to be hospitalized and People with confirmed COVID-19 who were hospitalized and determined to be medically stable to go home Your healthcare provider and public health staff will evaluate whe ther you can be cared for at home. If it is determined that you do not need to be hospitalized and can be isolated at home, you will be monitored by staff from your local or state health department. You should follow the prevention steps below until a healthcare provider or local or state health department says you can return to your normal activities. Stay home except to get medical care People who are mildly ill with COVID-19 are able to isolate at home during their illness. You should restrict activities outside your home, except for getting medical care. Do not go to work, school, or public areas. Avoid using public transportation, ride-sharing, or taxis. Separate yourself from other people and animals in your home People: As much as possible, you should stay in a specific room and away from other people in your home. Also, you should use a separate bathroom, if available. Animals: You should restrict contact with pets and other animals while you are sick with COVID-19, just like you would around other people. Although there have not been reports of pets or other animals becoming sick with COVID-19, it is still recommended that people sick with COVID-19 limit contact with animals until more information is known about the virus. When possible, have another member of your household care for your animals while you are sick. If you are sick with COVID-19, avoid contact with your pet, including petting, snuggling, being kissed or licked, and sharing food. If you must care for your pet or be around animals while you are sick, wash your hands before and after you interact with pets and wear a facemask. Call ahead before visiting your provider If you have a medical appointment, call the healthcare provider and tell them that you have or may have COVID-19. This will help the healthcare provider's office take steps to keep other people from getting infected or exposed. Wear a facemask You should wear a facemask when you are around other people (e.g., sharing a room or vehicle) or pets and before you enter a healthcare provider's office. If you are not able to wear a facemask (for example, because it causes trouble breathing), then people who live with you should not stay in the same room with you, or they should wear a facemask if they enter your room. Cover your coughs and sneezes Cover your mouth and nose with a tissue when you cough or sneeze. Throw used tissues in a lined trash can. Immediately wash your hands with soap and water for at least 20 seconds or, if soap and water are not available, clean your hands with an alcohol-based hand plate setter that contains at least 60% alcohol. Clean your hands often Wash your hands often with soap and water for at least 20 seconds, especially after blowing your nose, coughing, or sneezing; going to the bathroom; and before eating or preparing food. If soap and water are not readily available, use an alcohol-based hand plate setter with at least 60% alcohol, covering all surfaces of your hands and rubbing them together until they feel dry. Soap and water are the best option if hands are visibly dirty. Avoid touching your eyes, nose, and mouth with unwashed hands. Avoid sharing personal household items You should not share dishes, drinking glasses, cups, eating utensils, towels, or bedding with other people or pets in your home. After using these items, they should be washed thoroughly with soap and water. Clean all high-touch surfaces everyday High touch surfaces include counters, tabletops, doorknobs, bathroom fixtures, toilets, phones, keyboards, tablets, and bedside tables. Also, clean any surfaces that may have blood, stool, or body fluids on them. Use a household cleaning spray or wipe, according to the label instructions. Labels contain instructions for safe and effective use of the cleaning product including precautions you should take when applying the product, such as wearing gloves and making sure you have good ventilation during use of the product. Monitor your symptoms Seek prompt medical attention if your illness is worsening (e.g., difficulty breathing). Before seeking care, call your healthcare provider and tell them that you have, or are being evaluated for, COVID-19. Put on a facemask before you enter the facility. These steps will help the healthcare provider's office to keep other people in the office or waiting room from getting infected or exposed. Ask your healthcare provider to call the local or state health department. Persons who are placed under active monitoring or facilitated self-monitoring should follow instructions provided by their local health department or occupational health professionals, as appropriate. When working with your local health department check their available hours. If you have a medical emergency and need to call 911, notify the dispatch personnel that you have, or are being evaluated for COVID-19. If possible, put on a facemask before emergency medical services arrive. Discontinuing home isolation Patients with confirmed COVID-19 should remain under home isolation precautions until the risk of secondary transmission to others is thought to be low. The decision to discontinue home isolation precautions should be made on a nqsr-ao-[id number] basis, in consultation with healthcare providers and state and local health departments. Information on COVID-19 for all patients Call your provider before your next appointment if you develop any of the following symptoms: fever, cough, fatigue, anorexia, shortness of breath, sputum production, and muscle pains. Headache, confusion, rhinorrhea, sore throat, hemoptysis, vomiting, and diarrhea have been reported but are less common. Some persons with COVID-19 have experienced gastrointestinal symptoms such as diarrhea and nausea prior to developing fever and lower respiratory tract signs and symptoms. Ways to [place] with Anxiety & Stress It is normal to feel anxious or worried about COVID-19. You might feel sad about canceling celebrations and staying away from family and friends. Keep in mind that most people do not get severely ill from COVID-19. It is important to have a plan in case you get sick to prevent spreading the disease to others including an Advanced Care Plan (communicating and documenting your desired health care plan with family and healthcare team). You can take care of yourself by: ? Taking a break from watching the news ? Take deep breaths, stretch or meditate ? Getting exercise, eating healthy foods, and drinking plenty of water ? Finding activities you can enjoy inside your home ? Staying in touch with your family and friends. Tell your partner, family, and friends how you are feeling. Advance Care Planning People with COVID-19 may have no symptoms, mild symptoms, such as fever, cough, and shortness of breath or they may have more severe illness, developing severe and fatal pneumonia. As a result, Advance Care Planning with attention to naming a health care decision maker (someone you trust to make healthcare decisions for you if you could not speak for yourself) and sharing other health care preferences is important BEFORE a possible health crisis. Please contact your Primary Care Provider to discuss Advance Care Planning. Learning About Coronavirus (COVID-19) Coronavirus (COVID-19): Overview What is coronavirus (COVID-19)? The coronavirus disease (COVID-19) is caused by a virus. It is an illness that was first found in [facility], in November 2019. It has since spread worldwide. The virus can cause fever, cough, and trouble breathing. In severe cases, it can cause pneumonia and make it hard to breathe without help. It can cause . Coronaviruses are a large group of viruses. They cause the common cold. They also cause more serious illnesses like [place] respiratory syndrome (MERS) and severe acute respiratory syndrome (SARS). COVID-19 is caused by a novel coronavirus. That means it's a new type that has not been seen in people before. This virus spreads dcywrk-ry-tsvfpl through droplets from coughing and sneezing. It can also spread when you are close to someone who is infected. It is always good practice to clean high touch surfaces frequently and avoid touching your mouth, nose and eyes until you have washed your hands if you touched these areas. What can you do to protect yourself from coronavirus (COVID-19)? The best way to protect yourself from getting sick is to: Wear a face mask. Avoid areas where there is an outbreak. Avoid contact with people who may be infected. Wash your hands often with soap or alcohol-based hand sanitizers. Avoid crowds and try to stay at least 6 feet away from other people. Wash your hands often, especially after you cough or sneeze. Use soap and water, and scrub for at least 20 seconds. If soap and water aren't available, use an alcohol-based hand plate setter. Call 911 anytime you think you may need emergency care. For example, call if: You have severe trouble breathing. (You can't talk at all.) You have constant chest pain or pressure. You are severely dizzy or lightheaded. You are confused or can't think clearly. Your face and lips have a blue color. You pass out (lose consciousness) or are very hard to wake up. Call your OB Provider now if you develop symptoms such as: Shortness of breath. Fever. Cough. If you need to get care, call ahead to the provider's office for instructions before you go. Make sure you wear a face mask, to prevent exposing other people to the virus. Where can you get the latest information? The following health organizations are tracking and studying this virus. Their websites contain the most up-to-date information. You'll also learn what to do if you think you may have been exposed to the virus. [place]. Centers for Disease Control and Prevention (CDC): The CDC provides updated news about the disease and travel advice. The website also tells you how to prevent the spread of infection. www.cdc.gov World Health Organization (WHO): WHO offers information about the virus outbreaks. WHO also has travel advice. www.who.int Current as of: March 02, 2020 Content Version: 12.4 [employer]. Care instructions adapted under license by your healthcare professional. If you have questions about a medical condition or this instruction, always ask your healthcare professional. [employer] disclaims any warranty or liability for your use of this information. General Recommendations for Routine Cleaning and Disinfection of Households Community members can practice routine cleaning of frequently touched surfaces (for example: tables, doorknobs, light switches, handles, desks, toilets, faucets, sinks) with household actuarial technician and EPA-registered disinfectants that are appropriate for the surface, following label instructions. Labels contain instructions for safe and effective use of the cleaning product including precautions you should take when applying the product, such as wearing gloves and making sure you have good ventilation during use of the product. These guidelines are focused on household settings and are meant for the general public. Cleaning refers to the removal of germs, dirt, and impurities from surfaces. Cleaning does not kill germs, but by removing them, it lowers their numbers and the risk of spreading infection. Disinfecting refers to using chemicals to kill germs on surfaces. This process does not necessarily clean dirty surfaces or remove germs, but by killing germs on a surface after cleaning, it can further lower the risk of spreading infection. General Recommendations for Cleaning and Disinfection of Households with People Isolated in Home Care - Confirmed or suspected COVID 19 Household members should educate themselves about COVID-19 symptoms and preventing the spread of COVID-19 in homes. Clean and disinfect high-touch surfaces daily in household common areas (e.g. tables, hard-backed chairs, doorknobs, light switches, remotes, handles, desks, toilets, sinks) o In the bedroom/bathroom dedicated for an ill person: consider reducing cleaning frequency to as-needed (e.g., soiled items and surfaces) to avoid unnecessary contact with the ill person. - As much as possible, an ill person should stay in a specific room and away from other people in their home. - The caregiver can provide personal cleaning supplies for an ill person's room and bathroom, unless the room is occupied by child or another person for whom such supplies would not be appropriate. These supplies include tissues, paper towels, actuarial technician and EPA-registered disinfectants (see list link at [facility] website). - If a separate bathroom is not available, the bathroom should be cleaned and disinfected after each use by an ill person. If this is not possible, the caregiver should wait as long as practical after use by an ill person to clean and disinfect the high-touch surfaces. How to clean and disinfect: Hard Surfaces Wear disposable gloves when cleaning and disinfecting surfaces. Gloves should be discarded after each cleaning. If reusable gloves are used, those gloves should be dedicated for cleaning and disinfection of surfaces for COVID-19 and should not be used for other purposes. Consult the extrusion die corrector's instructions for cleaning and disinfection products used. Clean hands immediately after gloves are removed. If surfaces are dirty, they should be cleaned using a detergent or soap and water prior to disinfection. For disinfection, diluted household bleach solutions, alcohol solutions with at least 70% alcohol, and most common EPA-registered household disinfectants should be effective. o Diluted household bleach solutions can be used if appropriate for the surface. Follow extrusion die corrector's instructions for application and proper ventilation. Check to ensure the product is not past its expiration date. Never mix household bleach with ammonia or any other cleanser. Unexpired household bleach will be effective against coronaviruses when properly diluted. - Prepare a bleach solution by mixing: - 5 tablespoons (1/3rd cup) bleach per gallon of water or - 4 teaspoons bleach per quart of water o Products with EPA-approved emerging viral pathogens claimspdf iconexternal icon are expected to be effective against COVID-19 based on data for harder to kill viruses. Follow the extrusion die corrector's instructions for all cleaning and disinfection products (e.g., concentration, application method and contact time, etc.). Soft (porous) surfaces such as carpeted floor, rugs, and drapes Remove visible contamination if present and clean with appropriate actuarial technician indicated for use on these surfaces. After cleaning: Launder items as appropriate in accordance with the extrusion die corrector's instructions. If possible, launder items using the warmest appropriate water setting for the items and dry items completely, or Clothing, towels, linens and other items that go in the laundry Wear disposable gloves when handling dirty laundry from an ill person and then discard after each use. If using reusable gloves, those gloves should be dedicated for cleaning and disinfection of surfaces for COVID-19 and should not be used for other household purposes. Clean hands immediately after gloves are removed. o If no gloves are used when handling dirty laundry, be sure to wash hands afterwards. o If possible, do not shake dirty laundry. This will minimize the possibility of dispersing virus through the air. o Launder items as appropriate in accordance with the extrusion die corrector's instructions. If possible, launder items using the warmest appropriate water setting for the items and dry items completely. Dirty laundry from an ill person can be washed with other people's items. o Clean and disinfect clothes hampers according to guidance above for surfaces. If possible, consider placing a food or baggage handling rampman that is either disposable (can be thrown away) or can be laundered. [facility] has a list of EPA approved cleaning products on their website - https://www.cdc.gov/coronavirus/2 019-ncov/community/home/cleaning- disinfection.html https://www.FieldEZ /Gares-Fxypagpovel-Vltoeujj-Produ cts-List.pdf [employer] Stores with delivery and chicken picker services: [employer]: Free chicken picker at locations Delivery is $12.95 a month Website - [employer] [place]: Outside Maintenance Worker $2.95 (1st order is free) Delivery is $14.95 Website [employer]: financial supervisor is free Delivery is $5.95 Website [employer]: financial supervisor is $4.95 Delivery is $9.95 Website [employer]: financial supervisor is $4.95 Delivery is $9.95 Website [employer]: Can be ordered for delivery and chicken picker with [employer] Website - www.[employer]: Free deliver for first 3 orders of $35 or more Website [employer] Will deliver from [facility], [facility], [employer], and [employer]. Annual membership is $99 Monthly membership is $14 documented in this encounter [facility] Work Phone: 05-12-2022 Note Department of Obstet rics and Gynecology Delivery Discharge Summary Admission on 05/11/2022 1:01 AM Reason for admission: active labor, history of , declines TOLAC Intrapartum Course: admitted for unscheduled repeat 37w0d PC-01 Indications for Delivery: Was patient delivered between 37w0d - 74f9bpgate? YES: This patient delivered between 22o6w-74o2m for the following acceptable indication(s) for delivery: (anant all that apply) OBSTETRIC INDICATIONS: Active, early, or spontaneous labor, INDICATIONS: N/A: indications not applicable to this patient. See obstetrical or maternal, MATERNAL INDICATIONS: N/A: maternal indications not applicable for this patient. See or obstetrical Surgical Operations & Procedures: Date of delivery: 05/11/2022 Delivery Type: with labor Anesthesia: Spinal anesthesia Laceration(s): n/a Delivery Complications: none EBL: 660 cc Pertinent Findings & Procedures: Information for the patient's : Daniela Ramos [[id number]] female Weight: 6 lb 13.9 oz (3.115 kg) Apgars: Information for the patient's : Daniela Ramos [[id number]] One Minute : 8 Five Minute : 9 Course: Uncomplicated Infant: Female infant Blood Type/Rh: A POS Antibody Screen: Antibody Screen Date Value Ref Range Status 05/11/2022 NEG NA Final Rubella: Lab Results Component Value Date RUBELLAIGG 59.6 12/13/2021 Contraception: no method : no VTE Prophylaxis: Prophylactic Dosing until Discharge Meds: Medication List START taking these medications docusate sodium 100 mg capsule Commonly known as: Colace Take 1 capsule by mouth 2 times daily ferrous sulfate 325 (65 Fe) MG tablet Commonly known as: IRON 325 Take 1 tablet by mouth 2 times daily ibuprofen 600 MG tablet Commonly known as: ADVIL;MOTRIN Take 1 tablet by mouth every 6 hours as needed for Pain oxyCODONE 5 MG immediate release tablet Commonly known as: Roxicodone Take 1 tablet by mouth every 6 hours as needed for Pain for up to 5 days. Intended supply: 5 days. Take lowest dose possible to manage pain CONTINUE taking these medications GUMMIES PO STOP taking these medications acetaminophen 500 MG tablet Commonly known as: TYLENOL Where to Get Your Medications These medications were sent to [facility] [place], [place] [facility] [address] [facility] - P [phone] - F [phone] [address] [facility] [phone] ? docusate sodium 100 mg capsule ? ferrous sulfate 325 (65 Fe) MG tablet ? ibuprofen 600 MG tablet Information about where to get these medications is not yet available Ask your nurse or doctor about these medications ? oxyCODONE 5 MG immediate release tablet Activity: Activity as tolerated Diet: Regular diet Follow up Care: Follow up appointment in 1 week for BP check Condition on discharge: Stable Discharge to: Home Discharge date: 05/13/2022 Discharge Dx: s/p RCD Instructions to Patient:: Pelvic Rest (no intercourse, tampons, douching, etc) x 6 weeks Specific discharge instruction printed History of section, low transverse [Z98.891] Patient Active Problem List Diagnosis ? ADHD (attention deficit hyperactivity disorder), inattentive type ? Itching ? Transient hypertension ? History of section complicating ? Obesity in ? COVID-19 affecting in second trimester ? care, antepartum ? Uterine size-date discrepancy in third trimester ? History of section, low transverse Comments: Home care, Follow-up care and control were reviewed. Signs and symptoms of mastitis and Post Depression were reviewed. The patient is to notify her physician if any of these occur. Cecy Barrientos MD on 05/12/2022 at 11:[address] [facility] 05-12-2022 Hospital course Narrative Images from the original note were not included. Department of Obstetrics and Gynecology Delivery Discharge Summary Admission on 05/11/2022 1:01 AM Reason for admission: active labor, history of , declines TOLAC Intrapartum Course: admitted for unscheduled repeat 37w0d PC- Indications for Delivery: Was patient delivered between 37w0d - 80j7scxygh? YES: This patient delivered between 23q2l-91n7i for the following acceptable indication(s) for delivery: (anant all that apply) OBSTETRIC INDICATIONS: Active, early, or spontaneous labor, INDICATIONS: N/A: indications not applicable to this patient. See obstetrical or maternal, MATERNAL INDICATIONS: N/A: maternal indications not applicable for this patient. See or obstetrical Surgical Operations & Procedures: Date of delivery: 05/11/2022 Delivery Type: with labor Anesthesia: Spinal anesthesia Laceration(s): n/a Delivery Complications: none EBL: 660 cc Pertinent Findings & Procedures: Information for the patient's : Daniela Ramos [[id number]] female Weight: 6 lb 13.9 oz (3.115 kg) Apgars: Information for the patient's : Daniela Ramos [[id number]] One Minute : 8 Five Minute : 9 Course: Uncomplicated Infant: Female Blood Type/Rh: A POS Antibody Screen: Antibody Screen Date Value Ref Range Status 05/11/2022 NEG NA Final Rubella: Lab Results Component Value Date RUBELLAIGG 59.6 12/13/2021 Contraception: no method : no VTE Prophylaxis: Prophylactic Dosing until Discharge Meds: Medication List START taking these medications docusate sodium 100 mg capsule Commonly known as: Colace Take 1 capsule by mouth 2 times daily ferrous sulfate 325 (65 Fe) MG tablet Commonly known as: IRON 325 Take 1 tablet by mouth 2 times daily ibuprofen 600 MG tablet Commonly known as: ADVIL;MOTRIN Take 1 tablet by mouth every 6 hours as needed for Pain oxyCODONE 5 MG immediate release tablet Commonly known as: Roxicodone Take 1 tablet by mouth every 6 hours as needed for Pain for up to 5 days. Intended supply: 5 days. Take lowest dose possible to manage pain CONTINUE taking these medications GUMMIES PO STOP taking these medications acetaminophen 500 MG tablet Commonly known as: TYLENOL Where to Get Your Medications These medications were sent to [facility] [place], [place] [facility] [address] [facility] - P [phone] - F [phone] [facility] [phone] docusate sodium 100 mg capsule ferrous sulfate 325 (65 Fe) MG tablet ibuprofen 600 MG tablet Information about where to get these medications is not yet available Ask your nurse or doctor about these medications oxyCODONE 5 MG immediate release tablet Activity: Activity as tolerated Diet: Regular diet Follow up Care: Follow up appointment in 1 week for BP check Condition on discharge: Stable Discharge to: Home Discharge date: 05/13/2022 Discharge Dx: s/p RCD Instructions to Patient:: Pelvic Rest (no intercourse, tampons, douching, etc) x 6 weeks Specific discharge instruction printed History of section, low transverse [Z98.891] Patient Active Problem List Diagnosis ADHD (attention deficit hyperactivity disorder), inattentive type Itching Transient hypertension History of section complicating Obesity in COVID-19 affecting in second trimester care, antepartum Uterine size-date discrepancy in third trimester History of section, low transverse Comments: Home care, Follow-up care and control were reviewed. Signs and symptoms of mastitis and Post Depression were reviewed. The patient is to notify her physician if any of these occur. Cecy Barrientos MD on 05/12/2022 at 11:10 AM documented in this encounter [facility] Work Phone: 11-25-2019 History of Present illness Narrative Nutrition rescreen completed. Patient assigned a level 1. POST DAY # 2 Claire Ramos is a 29 y.o. female This patient was seen & examined today. 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 Vital Signs: Vitals: 11/24/19 0358 11/24/19 0725 11/24/19 1159 11/24/19 1928 BP: 118/73 111/76 120/84 (!) 144/89 Pulse: 104 113 107 112 Resp: 16 14 16 18 Temp: 97.6 F (36.4 C) 97.6 F (36.4 C) 98.5 F (36.9 C) 97.7 F (36.5 C) TempSrc: Temporal Temporal Temporal Temporal SpO2: 95% 96% 98% 100% Weight: Height: Physical Exam: General: no apparent distress, alert and cooperative Abdomen: abdomen soft, non-distended, non-tender Fundus: non-tender, normal size, firm, below umbilicus Incision: dressing in place, clean, dry and intact Assessment and Plan: Claire Ramos is a POD # 2 s/p pLTCS 2/2 Breech Presentation, gHTN - Doing well, VSS - male infant,desire circumcision 1. Contraception: per private attending 2. DVT prophylaxis: ppx until discharge 3. Antihypertensive medication: None 4. Disposition: continue current management Platelet storage pool disease - 1 units of plts on hold prior to delivery - no personal hx of bleeding after procedures - bleeding stable this AM, Plts 362 on admission - will hold motrin and toradol - delay circumcision if patient desires - QBL 410 CC gHTN -BPs normal to mild range -patient asymptomatic -PreE labs wnl on admission POST DAY # 1 Claire Ramos is a 29 y.o. female This patient was seen & examined today. 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 Her lochia is light. She denies chest pain, shortness of breath, headache and blurred vision. She is ambulating well. Flatus absent. Bowel movement absent. Dickson removed this AM. She is tolerating solids. Pain is controlled yes. Vital Signs: Vitals: 11/23/19 1647 11/23/19 1946 11/23/19 2312 11/24/19 0358 BP: (!) 143/93 132/88 118/73 Pulse: 93 107 104 Resp: 18 18 16 Temp: 96 F (35.6 C) 97.5 F (36.4 C) 97.7 F (36.5 C) 97.6 F (36.4 C) TempSrc: Temporal Temporal Temporal SpO2: 98% 96% 95% Weight: Height: Urine Input & Output last 24hrs: Intake/Output Summary (Last 24 hours) at 11/24/2019 0624 Last data filed at 11/24/2019 0505 Gross per 24 hour Intake 1700 ml Output 5410 ml Net -3710 ml Physical Exam: General: no apparent distress, alert and cooperative Affect: appropriate Lungs: No increased work of breathing, good air exchange, clear to auscultation bilaterally, no crackles or wheezing Heart: regular rate and rhythm Abdomen: abdomen soft, non-distended, non-tender Fundus: non-tender, normal size, firm, below umbilicus Incision: clean, dry and intact Extremities: no calf tenderness, non edematous Labs: Lab Results Component Value Date WBC 13.4 (H) 11/23/2019 HGB 10.5 (L) 11/24/2019 HCT 35.3 11/23/2019 MCV 82.7 11/23/2019 PLT 362 11/23/2019 A POS Antibody Screen: Antibody Screen Date Value Ref Range Status 11/23/2019 NEG NA Final Comment: Test Performed by [facility], [address] [place] [id number] Lab Results Component Value Date RUBELLAIGG 93.1 05/25/2019 LABOR DELIVERY ??? SCD's ONLY (labor through ambulation) SCD's PLUS Prophylactic Anticoagulation until discharge SCD's PLUS Prophylactic Anticoagulation for 6 weeks SCD's PLUS Therapeutic Anticoagulation for 6 weeks Vaginal Delivery [] BMI ? 40 kg/m2 Delivery All patients Vaginal Delivery [] BMI ? 40 kg/m2 AND [] Antepartum hospitalization ? 72 hours within the past month Delivery 1 Major Risk Factor: [x] BMI ? 35 kg/m2 [] Low Risk Thrombophilia [] PPH+RBCs, IR, or operation [] Infection+Antibiotics [] Antepartum hospitalization ? 72 hours within the past month [] PMH: Sickle Cell, SLE, Cardiac Dz, Active IBD, Active Cancer, Nephrotic Syndrome OR 2 Minor Risk Factors: [] Multiple gestation [] Age > 40 [] PPH ? 1,000cc [] (+)FMH of VTE [] Smoker [] Preeclampsia [] BMI ? 40 kg/m2 AND [] Low Risk Thrombophilia OR ANY OF THE FOLLOWING: [] High Risk Thrombophilia without prior VTE [] Low Risk Thrombophilia with (+)FMH of VTE [] Any single prior VTE ANY OF THE FOLLOWING: [] Already on LMWH/UFH [] Multiple prior VTE [] High Risk Thrombophilia with prior VTE Low Risk Thrombophilia: FVL (heterozygous), Prothrombin (heterozygous), Protein C, Protein S High Risk Thrombophilia: FVL (homozygous), Prothrombin (homozygous), FVL+Prothrombin (heterozygous), Antithrombin III, APLS Assessment/Plan: 1. 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 gHTN -BPs normal to mild range -patient asymptomatic -PreE labs wnl on admission 4. both breast and bottle 5. Contraception:per private attending 6. VTE Prophylaxis: Prophylactic Dosing until Discharge, will start after 24 hours per [facility] recs 7. Continue current care Provider's Name: MD Deng Burgess, 11/24/2019, 6:24 AM I reviewed and agree with the care provided by the resident/CNM/KIMBER during the visit including the patient's medical history, the resident's findings in the physical exam, patient's diagnosis and treatment plan. Paged to OR 3 for the delivery of a 37 week gestation baby. Upon delivery the baby was placed on the radiant warmer and we warmed, dried, and stimulated him. He did not cry immediately but began to cry with drying and stimulating. He was pink with a good heart rate and good muscle tone. No further intervention was needed by the scn team. Care was assumed by the L&D staff in the OR. documented in this encounter [facility] Work Phone: 11-24-2019 Hospital Discharge instructions Sandra Krishnamurthy MD - 11/24/2019 After Your Delivery (the Period): Your Care Instructions Congratulations on the of your baby. Like , the period can be a time of excitement, filippo, and exhaustion. You may look at your wondrous little baby and feel happy. You may also be overwhelmed by your new sleep hours and new responsibilities. In these first weeks after delivery, try to take good care of yourself. It may take 4 to 6 weeks to feel like yourself again, and possibly longer if you had a . You will likely feel very tired for several weeks. Your days will be full of ups and downs, but lots of filippo as well. FOLLOW-UP: Your follow-up care is a mcneill part of your treatment and safety. Follow-up with your OB doctor on 11/27 and in 1 week for a BP check. Follow-up in 6 weeks for your routine post- visit. Be sure to make and go to all appointments, and call your doctor if you are having problems. It's also a good idea to know your test results and keep a list of the medicines you take. BLEEDING Vaginal bleeding will decrease in amount over the next few weeks. Bleeding may chicken picker and then decrease again around 7-10 days . Use pads instead of tampons for the bloody flow that may last as long as 2 weeks. You will notice that as your activity increases, your flow may increase. Call your doctor if you are saturating one maxi pad in an hour & passing large clots for 3 hours or more. ACTIVITY NO SEXUAL activity for 6 weeks or until advised by your doctor; Nothing in vagina: intercourse, tampons, or douching. Showering is okay; NO tub baths, swimming, or hot tubs. Gradually increase your activity. Resume exercise regimen only after advice by your doctor. Avoid lifting anything heavier than your baby or a gallon of milk for six weeks. Avoid driving 1 week for vaginal delivery and 2 weeks for section, or longer if you are on prescription pain medicine unless otherwise instructed by your doctor. Rise slowly from a lying to sitting and then a standing position. Climb stairs carefully. Use caution when carrying your baby up and down the stairs. You may feel tired or have a lack of energy. You may continue your vitamin to replenish nutrients post delivery. Nap when baby naps to catch up on sleep. EMOTIONS You may feel chase, sad, teary, & overwhelmed for the first 2 weeks ; however, feelings of post depression may occur any time within the first year after delivery. Contact your OB provider if you feel you may be showing signs of depression, or have thoughts of harming yourself or your infant. If infant will not stop crying, contact another adult for help or place infant in their crib on their back and take a break. NEVER shake your . WOUND CARE For Vaginal Delivery: Shower daily, and cleanse your perineum (bottom) with mild soap from front to Back. Use the plastic squirt bottle until bleeding stops each time you use the restroom instead of wiping with toilet paper. Ease soreness of hemorrhoids and the area between your vagina and rectum with ice compresses or witch erwin pads. If used, stitches will dissolve in 4-6 weeks on their own. You may use a sitz bath or soak in a clean tub with drain open and water running for comfort. Kegel exercises will help restore bladder control. To do these tighten your muscles as if you were stopping your urine flow. Hold for a few seconds and then relax. Do these throughout the day. For Section Delivery: Keep your incision clean and dry. If you had steri-strips you may remove these once they start falling off. If you have saeed they need to be removed 3-10 days after delivery. If you have steri-strips, remove after 7 - 10 days. Do not wear clothing that irritates the incision line. If your incision in in a crease that is not dry, use a hair-dryer to dry the area 3 times a day. If you develop fever, shaking chills, redness, swelling, drainage or discharge from your wound, or if your wound looks like it's coming apart call your doctor immediately. BREAST CARE If you develop a warm, red, tender area on your breast or develop a fever contact your doctor. For moms: If you become engorged, feeding may be more difficult or painful for 1-2 days. You may find it helpful to hand express some milk so that the can latch on more easily or ease soreness with wet, warm washcloths. While , continue to take your vitamins as directed by your doctor. For non- moms: You may apply ice packs to your breasts over you bra for twenty minutes at a time for comfort. Cabbage leaves may be applied to breasts, replace when wilted. Avoid stimulation to your breasts, when showering allow the water to strike your back not your breasts. Do not express milk or your body will make more. Wear a good fitting bra until your milk dries, such as a sports bra. DIET & CONSTIPATION Eat a well balanced diet focusing on foods high in fiber and protein such as: whole grain cereals and breads, fruits and vegetables and legumes (eg, beans, lentils) Drink 8-10 glasses of fluids daily, especially water. To avoid constipation you may take a mild fvty-pme-ulrzjny stool softener (such as colace) as recommended by your doctor. SWELLING Try to keep your legs elevated when you are sitting or lying down. Stay hydrated and take walks. BABY Babies sleep safest on their back in a crib without bumpers, blankets or stuffed animals. Do not sleep with your baby in your bed or the couch. Do not expose baby to smoke, this can increase risks of asthma and sudden syndrome. If you or someone around baby smokes have them change their shirt and wash any facial hair before holding baby. Do not smoke inside the house and change the ventilation filters in the house before bringing baby home. WHEN TO CALL THE DOCTOR Signs of infection, including fever and chills Increased bleeding: soaking more than one sanitary pad an hour Wounds that become red, swollen or drain pus Vaginal discharge that smells foul New pain, swelling, or tenderness in your legs Pain that you can't control with the medications you've been given Pain, burning, urgency or frequency of urination, or persistent bleeding in the urine Cough, shortness of breath, or chest pain Depression, suicidal thoughts, or feelings of harming your baby Breasts that are hot, red and accompanied by fever Any cracking or bleeding from the nipple or areola (the dark-colored area of the breast) You may have been given a magnet like this: If so, we encourage you to use it on your refrigerator as a reminder of when to call the doctor. In case of an emergency, call 911 immediately. documented in this encounter [employer] Work Phone: 11-24-2019 Hospital course Narrative Department of Obstetrics and Gynecology Delivery Discharge Summary Admission on 11/23/2019 12:33 PM Reason for admission: primary for breech presentation and gHTN Intrapartum Course: unremarkable Surgical Operations & Procedures: Date of delivery: 11/23/19 Delivery Type: without labor Anesthesia: Spinal anesthesia Laceration(s): n/a Delivery Complications: none EBL: 450 cc Pertinent Findings & Procedures: Information for the patient's : Pop Ramos [[id number]] male Weight: 6 lb 5.4 oz (2.875 kg) Apgars: Information for the patient's : Pop Ramos [[id number]] One Minute : 7 Five Minute : 9 Course: Uncomplicated Infant: male, circumcision done Blood Type/Rh: A POS Antibody Screen: Antibody Screen Date Value Ref Range Status 11/23/2019 NEG NA Final Comment: Test Performed by [facility], [address] [place] [id number] Rubella: Lab Results Component Value Date RUBELLAIGG 93.1 05/25/2019 Contraception: abstinence : yes VTE Prophylaxis: Not Indicated Meds: Claire Ramos Home Medication Instructions SERAFIN:[id number] Printed on:11/24/19 1024 Medication Information acetaminophen (TYLENOL) 500 MG tablet Take 500 mg by mouth as needed diphenhydrAMINE (BENADRYL) 25 MG tablet Take 25 mg by mouth nightly As needed oxyCODONE (ROXICODONE) 5 MG immediate release tablet Take 1 tablet by mouth every 6 hours as needed for Pain for up to 7 days. Vit w/Vn-Snjfoovma-DL (PNV PO) Take by mouth Activity: Activity as tolerated Diet: Regular diet Follow up Care: Follow up appointment in 11/27 and in 1 week for a BP check. Follow up in 6 weeks for the routine post- visit. Condition on discharge: Stable Discharge to: Home Discharge date: 11/25/19 Discharge Dx: , post-op, gestational htn, storage pool disease Instructions to Patient:: Pelvic Rest (no intercourse, tampons, douching, etc) x 6 weeks Specific discharge instruction printed Indication for care in labor and delivery, antepartum [O75.9] Patient Active Problem List Diagnosis ADHD (attention deficit hyperactivity disorder), inattentive type Storage pool disease (HCC) care, antepartum Tachycardia Itching Gestational hypertension, antepartum Indication for care in labor and delivery, antepartum Breech presentation, no version Comments: Home care, Follow-up care and control were reviewed. Signs and symptoms of mastitis and Post Depression were reviewed. The patient is to notify her physician if any of these occur. Sandra Krishnamurthy MD on 11/24/2019 at 10:24 AM documented in this encounter [facility] Work Phone: 11-20-2019 History of Present illness Narrative Department of Obstetrics and Gynecology Labor and Delivery Triage Note CHIEF COMPLAINT: Elevated BP in office HISTORY OF PRESENT ILLNESS: Claire Ramos is a 29 y.o. 36w4d. OB History 1 Para Term AB Living SAB TAB Ectopic Molar Multiple Live Births Patient presents with a chief complaint as above. Denies DFM/, VB, LOF and CTX No other complaints Detailed OB History: OB History Para Term AB Living 1 0 0 0 0 0 SAB TAB Ectopic Molar Multiple Live Births 0 0 0 0 0 0 # Outcome Date GA Lbr Carlos Manuel/2nd Weight Sex Delivery Anes PTL Lv 1 Current Estimated Due Date: Estimated Date of Delivery: 12/14/19, Patient's last menstrual period was 03/09/2019 (approximate). PAST MEDICAL HISTORY: Past Medical History: Diagnosis Date ADHD ADHD Endometriosis had cysts on ovarys Migraines Storage pool disease (HCC) PAST SURGICAL HISTORY: Past Surgical History: Procedure Laterality Date WISDOM TOOTH EXTRACTION 2009 SOCIAL HISTORY: reports that she has never smoked. She has never used smokeless tobacco. She reports that she does not drink alcohol or use drugs. MEDICATIONS: Prior to Admission medications Medication Sig Start Date End Date Taking? Authorizing Provider acetaminophen (TYLENOL) 500 MG tablet Take 500 mg by mouth as needed Yes Historical Provider, diphenhydrAMINE (BENADRYL) 25 MG tablet Take 25 mg by mouth nightly As needed Yes Historical Provider, Vit w/Iy-Nmvajogho-DQ (PNV PO) Take by mouth Yes Historical Provider, CARE: Complicated by: gHTN REVIEW OF SYSTEMS: Pertinent items are noted in HPI. APPEARANCE: Pain: Resting comfortably PHYSICAL EXAM: Vital Signs: Vitals: 11/20/19 1010 Temp: 97.7 F (36.5 C) TempSrc: Oral Weight: 224 lb (101.6 kg) Height: 5' 2 (1.575 m) Abdomen/Uterus: gravid/non-tender Edema: None Speculum Exam: defer heart rate: Category I Cervix: defer Contraction frequency: None Membranes: Intact RESULTS: NST: Reactive DVP: defer BPP: defer Lab Results Component Value Date WBC 11.4 (H) 11/20/2019 HGB 11.2 (L) 11/20/2019 HCT 34.2 (L) 11/20/2019 PLT 343 11/20/2019 Lab Results Component Value Date CREATININE 0.60 11/20/2019 GLUCOSE 116 11/20/2019 AST 19 11/20/2019 ALT 17 11/20/2019 GENERAL LABS: Recent Results (from the past 24 hour(s)) CBC Collection Time: 11/20/19 10:30 AM Result Value Ref Range WBC 11.4 (H) 3.6 - 10.7 10*3/uL RBC 4.13 3.80 - 5.20 10*6/uL Hemoglobin 11.2 (L) 11.7 - 16.0 g/dL Hematocrit 34.2 (L) 35.0 - 47.0 % MCV 82.9 79.0 - 98.0 fL MCH 27.2 26.0 - 34.0 pg MCHC 32.8 32.0 - 36.0 % RDW 15.0 (H) 11.5 - 14.5 % Platelets 343 140 - 440 10*3/uL MPV 6.9 (L) 7.4 - 10.4 fL Comprehensive Metabolic Panel Collection Time: 11/20/19 10:30 AM Result Value Ref Range Sodium 137 135 - 145 mmol/L Potassium 4.1 3.5 - 5.1 mmol/L Chloride 106 98 - 107 mmol/L CO2 23 22 - 30 mmol/L Anion Gap 8 NA Glucose 116 (H) 70 - 100 mg/dL BUN 7 7 - 20 mg/dL CREATININE 0.60 0.52 - 1.25 mg/dL eGFR >60.0 >60 mL/min EGFR IF NonAfrican Thai >60.0 >60 mL/min Calcium 8.7 8.4 - 10.4 mg/dL Albumin,Serum 3.6 3.5 - 5.0 g/dL Total Protein 6.9 6.3 - 8.2 g/dL Total Bilirubin 0.1 (L) 0.2 - 1.3 mg/dL Alkaline Phosphatase 127 (H) 38 - 126 U/L ALT 17 13 - 69 U/L AST 19 15 - 46 U/L TRIAGE COURSE: Pt was seen in triage for NST and BP check. Initially tachycardic but denies chest pain or SOB. Now maternal HR 100-110. Normotensive. PreE labs ordered. normotensive. PreE labs negative. Asymptomatic at present. To follow up in office ESSION: gHTN DISCUSSED WITH C PROVIDER: Dr Krishnamurthy DISPOSITION: Discharge to Home Associated attestation - Pepper Bartlett MD - 11/20/2019 11:43 AM EST I reviewed and agree with the care provided by the resident/CNM/KIMBER during the visit including the patient's medical history, the resident's findings in the physical exam, patient's diagnosis and treatment plan. 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 Indication for care in labor and delivery, antepartum Unspecified indication for care or intervention related to labor and delivery, antepartum Breech presentation, no version Breech presentation without mention of version, unspecified as to episode of care documented in this encounter [facility] Work Phone: Evaluation note* Diagnosis S/P section- Primary Other postprocedural status Uterine size-date discrepancy in third trimester Uterine size date discrepancy, antepartum condition or complication COVID-19 affecting in second trimester care, antepartum History of section complicating Previous delivery, unspecified as to episode of care or not applicable Obesity in Obesity complicating , childbirth, or the puerperium, unspecified as to episode of care or not applicable History of section, low transverse Other postprocedural status documented in this encounter [facility] Work Phone: Evaluation note* Diagnosis ADHD (attention deficit hyperactivity disorder), inattentive type Attention deficit disorder without mention of hyperactivity [facility] Diagnosis ADHD (attention deficit hyperactivity disorder), inattentive type Attention deficit disorder without mention of hyperactivity [facility]* Diagnosis ADHD (attention deficit hyperactivity disorder), inattentive type Attention deficit disorder without mention of hyperactivity [facility]* Diagnosis ADHD (attention deficit hyperactivity disorder), inattentive type Attention deficit disorder without mention of hyperactivity [facility]* Diagnosis ADHD (attention deficit hyperactivity disorder), inattentive type Attention deficit disorder without mention of hyperactivity [facility]* Diagnosis Attention deficit hyperactivity disorder (ADHD), unspecified ADHD type- Primary [facility]* Diagnosis ADHD (attention deficit hyperactivity disorder), inattentive type Attention deficit disorder without mention of hyperactivity documented in this encounter [facility] note* Diagnosis ADHD (attention deficit hyperactivity disorder), inattentive type Attention deficit disorder without mention of hyperactivity [facility]* Diagnosis Attention deficit hyperactivity disorder (ADHD), unspecified ADHD type [facility] Diagnosis Attention deficit hyperactivity disorder (ADHD), unspecified ADHD type [facility] Diagnosis Attention deficit hyperactivity disorder (ADHD), unspecified ADHD type [facility] Diagnosis Wheezing- Primary Subacute cough Acute bronchitis, unspecified organism [facility] Diagnosis Attention deficit hyperactivity disorder (ADHD), unspecified ADHD type- Primary Healthcare maintenance Encounter for screening for lipid disorder [facility]* Instructions* Ari Ellington MD - 11/20/2019 Follow up appointment with your doctor/early childhood special educator - Keep next scheduled appointment Activity - Normal activity Call your doctor/early childhood special educator if you have: - Leaking fluid - Vaginal bleeding - Regular contractions: More than 6 contractions in one hour - Decreased movement - Worsening abdominal (belly) pain - Headache, blurry vision, increased swelling, upper abdominal pain Treatment Verification: Claire Ramos was assessed on Labor and Delivery for a related visit on 11/20/19. Ari Ellington MD [facility] Reason for referral (narrative)* Consultation (Routine) - Pending Review Specialty Diagnoses / Procedures Referred By hCarla caceres Referred To Contact Psychiatry Diagnoses Attention deficit hyperactivity disorder (ADHD), unspecified ADHD type Procedures MA OFFICE/OUTPATIENT [facility] 60-74 MINUTES Radha Dudley MD [address] [place] [address] [facility] Psychiatry [address] [place] [address] Referral ID Status Reason Start Date Expiration Date Visits Requested Visits Authorized [id number] Pending Review Specialty Services Required 12/28/2022 12/28/2023 1 1 [facility] Summary Purpose Family History No Family History Records FoundNo Family History Records FoundNo Family History Records FoundNo Family History Records FoundNo Family History Records FoundNo Family History Records FoundNo Family History Records FoundNo Family History Records Found Advance Directives No Advanced Directives Records FoundDocuments on File Type Date 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 Will Power of Operations 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 Latest Code Status on File Code Status Date Activated Date Inactivated Comments Full Code 11/23/2019 7:36 PM Full Code 11/23/2019 1:26 PM 11/23/2019 7:35 PM Documents on File Type Date 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 ACP-Advance Directive ACP-Power of Operations Welder Latest Code Status on File Code Status Date Activated Date Inactivated Comments Full Code 05/11/2022 4:28 AM 05/11/2022 9:57 AM Full Code 11/23/2019 7:36 PM 11/25/2019 3:58 PM Discharge Instructions * Instructions* Brittany Grijalva DO - 09/07/2019 Follow up appointment with your doctor/early childhood special educator - Keep next scheduled appointment Activity - Normal Activity Call your doctor/early childhood special educator if you have: - leaking fluid - vaginal bleeding - regular contractions: More than 6 contractions in one hour - decreased movement - worsening abdominal (belly) pain - headache, blurry vision, increased swelling, upper abdominal pain Treatment Verification: Claire Ramos was assessed on Labor and Delivery for a related visit on 09/07/19. Brittany Grijalva DO [facility] documented in this encounter History of Present Illness * Brittany Grijalva DO - 09/07/2019 2:28 PM EDT Department of Obstetrics and Gynecology Labor and Delivery Triage Note CHIEF COMPLAINT: Abdominal pain HISTORY OF PRESENT ILLNESS: The patient is a 29 y.o. 26w0d. OB History 1 Para Term AB Living SAB TAB Ectopic Molar Multiple Live Births Patient presents with a chief complaint as above. Pt presents with abdominal pain since Saturday when she had an episode of sharp pain. Intermittent cramping since then. Denies DFM/VB/LOF. Denies urinary sx including dysuria and frequency. Estimated Due Date: Estimated Date of Delivery: 12/14/19 PAST MEDICAL HISTORY: Past Medical History: Diagnosis Date ADHD ADHD Endometriosis had cysts on ovarys Storage pool disease (HCC) PAST SURGICAL HISTORY: Past Surgical History: Procedure Laterality Date WISDOM TOOTH EXTRACTION 2009 SOCIAL HISTORY: reports that she has never smoked. She has never used smokeless tobacco. She reports that she does not drink alcohol or use drugs. MEDICATIONS: Prior to Admission medications Medication Sig Start Date End Date Taking? Authorizing Provider acetaminophen (TYLENOL) 500 MG tablet Take 500 mg by mouth as needed Yes Historical Provider, diphenhydrAMINE (BENADRYL) 25 MG tablet Take 25 mg by mouth nightly As needed Yes Historical Provider, Vit w/If-Ggwiyjeta-GD (PNV PO) Take by mouth Yes Historical Provider, CARE: Complicated by: 1. ADHD - previously on Adderall - currently no meds 2. Storage pool disease - follows with M REVIEW OF SYSTEMS: Pertinent items noted in HPI. APPEARANCE: Pain: no PHYSICAL EXAM: Vital Signs: VS wnl-reviewed/Respirations normal effort Vitals: 09/07/19 1413 BP: 138/85 Pulse: 92 Resp: 20 Temp: 98.4 F (36.9 C) TempSrc: Oral Weight: 202 lb (91.6 kg) Height: 5' 3 (1.6 m) Abdomen: soft, NT, ND, no rebound/guarding Uterus: gravid/non-tender LE Edema: trace Speculum Exam: Negative pooling, negative bleeding, scant physiologic discharge heart rate: Category I Cervix: Closed/thick/high Contraction frequency: Irritable on toco Membranes: Intact RESULTS: NST: N/A GENERAL LABS: No results found for this or any previous visit (from the past 24 hour(s)). TRIAGE COURSE: Pt presents with cramping and DFM. movement on BSUS. Wet prep negative. Most likely round ligament pain. Plan to discharge home with rx for mom to be belt. ESSION: Abdominal Pain/Round Ligament Pain DISCUSSED WITH [facility] PROVIDER: Dr. Freedman DISPOSITION: Discharge to Home Associated attestation - Ari Mata III, MD - 09/07/2019 3:41 PM EDT I reviewed and agree with the care provided by the resident/CNM/KIMBER during the visit including the patient's medical history, the resident's findings in the physical exam, patient's diagnosis and treatment plan. 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 Reason for Referral Specialty Diagnoses / Procedures Referred By Contazucena t Referred To Contact Zamzam Pathak APRN - DAVID [address] [place] [address] Referral ID Status Reason Start Date Expiration Date V isits Requested Visits Authorized [id number] Pending Review 1 1 Additional Source Comments INFORMATION SOURCE (unrecogn ized section and content) DATE CREATED AUTHOR 12/08/2019 [facility] DATE CREATED AUTHOR AUTHOR'S ORGANIZ ATION 12/10/2019 [facility] DATE CREATED AUTHOR AUTHOR'S ORGANIZ ATION 05/12/2022 [facility] DATE CREATED AUTHOR AUTHOR'S ORGANIZ ATION 05/22/2022 [facility] DATE CREATED AUTHOR AUTHOR'S ORGANIZ ATION 11/09/2022 [facility] DATE CREATED AUTHOR AUTHOR'S ORGANIZ ATION 01/19/2023 [facility] DATE CREATED AUTHOR AUTHOR'S ORGANIZ ATION 05/10/2023 [facility] DATE CREATED AUTHOR AUTHOR'S ORGANIZ ATION 04/08/2025 [facility] Reason for Visit (unrecogniz ed section and content) Reason Comments Abdominal Cramping Reason Comments Hypertension Reason Comments Scheduled Reason Comments Contractions Reason Onset Date Comments Refill Request 07/05/2022 Reason Onset Date Comments Refill Request 07/13/2022 Reason Onset Date Comments Refill Request 08/23/2022 Reason Onset Date Comments Refill Request 09/22/2022 Reason Onset Date Comments Refill Request 10/17/2022 Reason Comments Patient Question Reason Onset Date Comments Refill Request 11/23/2022 Reason Comments Establish Care Reason Comments Orders NEUROPSYCH Reason Onset Date Comments Refill Request 12/23/2022 Refill Request 12/24/2022 Reason Comments Behavioral Health Appointment Reason Comments Refill Request amphetamine-dextroam phetamine XR (ADDERALL XR) 20 mg 24 hr capsule Reason Onset Date Comments Med Refill 03/26/2023 Reason Onset Date Comments Med Refill 04/28/2023 Reason Onset Date Comments Med Refill 05/26/2023 Reason Onset Date Comments medication request 05/01/2023 Adderall Reason Comments Cough X 3 weeks, chest con gestion, went away for a few days then symptoms came back about 5 days ago used Albuterol treatment today at home Reason Comments New Patient Est Care- Ordered Prescriptions (unrec ognized section and content) Prescription Sig Dispensed Refills Start Date End Da te ibuprofen (ADVIL;MOTRIN) 600 MG tablet Take 1 tablet by mouth every 6 hours as needed for Pain 60 tablet 0 05/12/2022 oxyCODONE (ROXICODONE) 5 MG immediate release tabletIndications:S/P section Take 1 tablet by mouth every 6 hours as needed for Pain for up to 5 days. Intended supply: 5 days. Take lowest dose possible to manage pain 20 tablet 0 05/12/2022 05/17/2022 ferrous sulfate (IRON 325) 325 (65 Fe) MG tablet Take 1 tablet by mouth 2 times daily 180 tablet 1 05/12/2022 docusate sodium (COLACE) 100 mg capsule Take 1 capsule by mouth 2 times daily 60 capsule 3 05/12/2022 Scheduled Active and Recently Administ ered Medications (unrecognized section and content) Medication Order 05/11/2022 05/12/2022 05/13/2022 ceFAZolin (ANCEF) 2000 mg in dextrose 4 % 100 mL IVPB (premix) (COMPLETED) 2,000 mg, IntraVENous, ONCE, 1 dose, On Sat05/11/22 at 0445, Antimicrobial Indications: Surgical Prophylaxis, Labor and Delivery (Signed and Held) 0630 (Given by Other Clinician - Provider: Romy Leo RN - Comment: given by HOOP EXPANDER in OR) citric acid-sodium citrate (BICITRA) solution 30 mL (COMPLETED) 30 mL, Oral, ONCE, 1 dose, On Sat05/11/22 at 0245, Give prior to epidural placement., Labor and Delivery 0624 (Given - Provider: Romy Leo RN) enoxaparin (LOVENOX) injection 60 mg 60 mg, SubCUTAneous, DAILY, First dose on Sat05/11/22 at 2000, Until Discontinued, Indication of Use: Prophylaxis-DVT/PE, 2108 (Given - Provider: Ana Maria Wyatt, LETA) 2119 (Given - Provider: Ana Maria Pedro RN) 1999 (Due) ferrous sulfate (IRON 325) tablet 325 mg 325 mg, Oral, 2 TIMES DAILY WITH MEALS, First dose on Sat05/11/22 at 1015, Until Discontinued, Start if Hgb less than 10., 1009 (Not Given - Provider: Kaylyn Harris RN - Reason: Contraindicated)1700 (Due) 0943 (Given - Provider: Zahra Gates, LETA)1745 (Given - Provider: Zahra Gates, RN) 0941 (Given - Provider: Zahra Gates RN)1700 (Due) ketorolac (TORADOL) injection 30 mg (COMPLETED) Ketorolac is contraindicated in patients with advanced renal impairment and in patients at risk of renal failure due to volume depletion. For 65 years of age and older OR weight less than 50 kg, use 15 mg IV every 6 hours; MAX dose: 60 mg/day. Dose greater than 30 mg must be administered via intramuscular route. Do not administer for more than 5 days., 30 mg, IntraVENous, EVERY 6 HOURS, 4 doses, First dose on Sat05/11/22 at 1430, Last dose on Sat05/12/22 at 0830, Discontinue when able to take PO ibuprofen., 1516 (Given - Provider: Frank Augustin RN)2109 (Given - Provider: Ana Maria Wyatt, LETA) 0251 (Given - Provider: Ana Maria Wyatt, LETA)0942 (Given - Provider: Zahra Gates, LETA) ketorolac (TORADOL) injection 60 mg (COMPLETED) Ketorolac is contraindicated in patients with advanced renal impairment and in patients at risk of renal failure due to volume depletion. For 65 years of age and older OR weight less than 50 kg, use 15 mg IV every 6 hours; MAX dose: 60 mg/day. Dose greater than 30 mg must be administered via intramuscular route. Do not administer for more than 5 days., 60 mg, IntraMUSCular, ONCE, 1 dose, On Sat05/11/22 at 0815, Postop in recovery room, Post Delivery 0837 (Given - Provider: Jeanna Cox, LETA) lactated ringers bolus (COMPLETED) 1,000 mL, IntraVENous, at 1,000 mL/hr, Administer over 1 Hours, ONCE, On Sat05/11/22 at 0445, For 1 dose, Labor and Delivery. Administer bolus one hour prior to surgery., Labor and Delivery (Signed and Held) 0600 (New Bag - Provider: Romy Leo, RN)0700 (Due: Stopped - Provider: Romy Leo RN) measles, mumps & rubella vaccine (MMR) injection 0.5 mL 0.5 mL, SubCUTAneous, PRIOR TO DISCHARGE, 1 dose, Starting on Sat05/11/22 at 0957, Until Discontinued, Administer if Rubella non-immune or equivocal, metoclopramide (REGLAN) injection 10 mg (COMPLETED) 10 mg, IntraVENous, ONCE, 1 dose, On Sat05/11/22 at 0515 0454 (Given - Provider: Romy Leo, LETA) vitamin 27-1 MG tablet 1 tablet 1 tablet, Oral, DAILY, First dose on Sat05/11/22 at 1015, Until Discontinued, Begin when normal bowel activity resumes., 1324 (Not Given - Provider: Frank Augustin RN - Reason: Order parameters not met) 0942 (Given - Provider: Zahra Gates RN) 0941 (Given - Provider: Zahra Gates RN) sodium chloride flush 0.9 % injection 5-40 mL 5-40 mL, IntraVENous, EVERY 12 HOURS SCHEDULED (2 times per day), First dose on Sat05/11/22 at 1015, Until Discontinued, For Line Patency: Peripheral IV = 5 mL; Midline or Central Line = 10 mL/lumen. If following IV push medication, administer flush at same rate as the IV push. Flush volume is determined by type of infusion therapy being given. For non-viscous solutions use: Peripheral IV = 5 mL Midline or Central Line = 10 mL/lumen For viscous solutions (i.e. blood components, parenteral nutrition, contrast media, or after obtaining blood sample) use: Peripheral IV = 10 mL Midline or Central Line = 20 mL/lumen, 1015 (Not Given - Provider: Frank Augustin RN - Reason: IV Fluid Infusing)2110 (Given - Provider: Ana Maria Wyatt RN) 0942 (Given - Provider: Zahra Gates RN)2100 (Due) 0900 (Due)2100 (Due) olyzqwi-ybggty-ovvdr pertussis (BOOSTRIX) injection 0.5 mL 0.5 mL, IntraMUSCular, PRIOR TO DISCHARGE, 1 dose, Starting on Sat05/11/22 at 0957, Until Discontinued, If not previously administered during at 27-36 weeks as recommended by CDC., Continuous Medication Order 05/11/2022 05/12/2022 05/13/2022 lactated ringers infusion (CANCELED) IntraVENous, at 125 mL/hr, CONTINUOUS, Starting on Sat05/11/22 at 0445, Labor and Delivery (Signed and Held) 0405 (New Bag - Provider: Romy Leo RN) PRN Medication Order 05/11/2022 05/12/2022 05/13/2022 0.9 % sodium chloride infusion IntraVENous, at 5-250 mL/hr, PRN, if patient receiving piggyback infusions and maintenance fluids are not ordered OR KVO fluids to protect IV site / prevent frequent line interruptions/ long duration, Starting on Sat05/11/22 at 0957, For piggyback infusion, administer at same rate as piggyback for a total of 25 mL. Enter 25 mL into dose field and piggyback rate into rate field of order. If piggyback is infusing at a rate less than 100 mL/hr, enter 25 mL into dose field and 100 mL/hr into rate field of order. For KVO fluids, enter rate of 20 mL/hr or less into rate field of order., acetaminophen (TYLENOL) tablet 650 mg 650 mg, Oral, EVERY 6 HOURS PRN, Starting on Sat05/11/22 at 0957, Until Discontinued, Pain Mild (1-3), Give in addition to any other pain medication ordered at same time for any pain indication. Maximum dose of acetaminophen is 4000mg from all sources in 24 hours. Alternate ibuprofen and acetaminophen every 3 hours., 0943 (Given - Provider: Zahra Gates RN)1551 (Given - Provider: Zahra Gates RN)2119 (Given - Provider: Ana Maria Pedro RN) 0344 (Given - Provider: Ana Maria Pedro RN)0940 (Given - Provider: Zahra Gates RN) diphenhydrAMINE (BENADRYL) injection 25 mg 25 mg, IntraVENous, EVERY 6 HOURS PRN, Starting on Sat05/11/22 at 0957, Until Discontinued, Itching, Hives, 1033 (Given - Provider: Kaylyn Harris RN)1713 (Given - Provider: Frank Augustin RN) docusate sodium (COLACE) capsule 100 mg 100 mg, Oral, 2 TIMES DAILY PRN, Starting on Sat05/11/22 at 0957, Until Discontinued, Constipation, Do not crush or break., 1516 (Given - Provider: Frank Augustin RN) 0943 (Given - Provider: Zahra Gates RN)211 (Given - Provider: Ana Maria Pedro RN) ibuprofen (ADVIL;MOTRIN) tablet 600 mg 600 mg, Oral, EVERY 6 HOURS PRN, Starting on Sat05/11/22 at 0957, Until Discontinued, Pain Mild (1-3), Once tolerating PO, discontinue Toradol and begin ibuprofen 8 hours after the final dose of Toradol. Alternate ibuprofen and acetaminophen every 3 hours., 1746 (Given - Provider: Zahra Gates RN)2326 (Given - Provider: Ana Maria Pedro RN) 0549 (Given - Provider: Ana Maria Pedro RN)1158 (Given - Provider: Zahra Gates RN) lansinoh lanolin ointment Topical, EVERY 1 HOUR PRN, Dry Skin, nipple discomfort, Starting on Sat05/11/22 at 0957, ondansetron (ZOFRAN) injection 4 mg 4 mg, IntraVENous, EVERY 6 HOURS PRN, Starting on Sat05/11/22 at 0957, Until Discontinued, Nausea, oxyCODONE (ROXICODONE) immediate release tablet 10 mg(Linked Group 1) 10 mg, Oral, EVERY 4 HOURS PRN, Starting on Sat05/11/22 at 1945, Until Discontinued, Pain Severe (7-10), 1510 (Given - Provider: Lyudmila Ziegler RN)1912 (Given - Provider: Zahra Gates RN)2326 (Given - Provider: Ana Maria Pedro RN) 0344 (Given - Provider: Ana Maria Pedro RN)0941 (Given - Provider: Zahra Gates RN) oxyCODONE (ROXICODONE) immediate release tablet 5 mg(Linked Group 1) 5 mg, Oral, EVERY 4 HOURS PRN, Starting on Sat05/11/22 at 1945, Until Discontinued, Pain Moderate (4-6), 1510 (See Alternative - Provider: Lyudmila Ziegler RN)1912 (See Alternative - Provider: Zahra Gates, LETA)2326 (See Alternative - Provider: Ana Maria Pedro, RN) 0344 (See Alternative - Provider: Ana Maria Pedro, LETA)0941 (See Alternative - Provider: Zahra Gates RN) oxytocin (PITOCIN) 10 unit bolus from the bag (COMPLETED) 500 mL (30 Units), IntraVENous, PRN, 1 dose, Starting on Sat05/11/22 at 0428, Until Discontinued, Bleeding, For immediate post- use ONLY after delivery of baby/ excessive bleeding/ uterine atony. Bag 1 of 2: Bolus for bag to infuse at 999 ml/hour for 15 minutes (15 units in 250ml). After initial bolus then decrease rate to 250cc/hr (additional 15 units) for 1 hour. Then discontinue, Multiphase Phase of Care 0701 (Given by Other - Provider: Romy Leo RN) oxytocin (PITOCIN) 30 units in 500 mL infusion (CANCELED) 125 shahla-units/min (125 mL/hr), IntraVENous, CONTINUOUS PRN, Starting on Sat05/11/22 at 0428, Until Sat05/11/22 at 0827, Bleeding, Post- use ONLY after delivery of baby/ excessive bleeding/ uterine atony. Given after delivery of placenta AND the initial 30 unit bolus. Bag 2 of 2. 125 cc/hr (125 mu/min) for an additional infusion of 500cc (30 units), Multiphase Phase of Care 0819 (New Bag - Provider: Jeanna Cox, LETA) simethicone (MYLICON) chewable tablet 80 mg 80 mg, Oral, EVERY 6 HOURS PRN, Starting on Sat05/11/22 at 0957, Until Discontinued, Cramping, Flatulence, 0942 (Given - Provider: Zahra Gates, LETA) 0942 (Given - Provider: Zahra Gates RN) sodium chloride flush 0.9 % injection 5-40 mL 5-40 mL, IntraVENous, PRN, Starting on Sat05/11/22 at 0957, Until Discontinued, Line Care, After every IV line use, For Line Patency: Peripheral IV = 5 mL; Midline or Central Line = 10 mL/lumen. If following IV push medication, administer flush at same rate as the IV push. Flush volume is determined by type of infusion therapy being given. For non-viscous solutions use: Peripheral IV = 5 mL Midline or Central Line = 10 mL/lumen For viscous solutions (i.e. blood components, parenteral nutrition, contrast media, or after obtaining blood sample) use: Peripheral IV = 10 mL Midline or Central Line = 20 mL/lumen, Linked Groups Order Group 1: oxyCODONE (ROXICODONE) immediate release tablet 5 mgJump to med 5 mg, Oral, EVERY 4 HOURS PRN, Starting on Sat05/11/22 at 1945, Until Discontinued, Pain Moderate (4-6), Or oxyCODONE (ROXICODONE) immediate release tablet 10 mgJump to med 10 mg, Oral, EVERY 4 HOURS PRN, Starting on Sat05/11/22 at 1945, Until Discontinued, Pain Severe (7-10), Care Teams (unrecognized sec tion and content) Blood Or Blood Bank Technician Relationship Specialty Start Date End Date Serg Garibay MD PCP - General Family Medicine 04/14/19 Blood Or Blood Bank Technician Relationship Specialty Start Date End Date Serg Garibay MD [address] [facility] [place] [address] PCP - General Family Practice 11/23/17 Blood Or Blood Bank Technician Relationship Specialty Start Date End Date Serg Garibay MD [address] [facility] [address] PCP - General Family Practice 11/23/17 Blood Or Blood Bank Technician Relationship Specialty Start Date End Date Serg Garibay MD [address] [facility] [address] PCP - General Family Medicine 11/23/17 Blood Or Blood Bank Technician Relationship Specialty Start Date End Date Serg Garibay MD [address] [facility] [place] [facility], [place] [id number] PCP - General Family Medicine 11/23/17 Blood Or Blood Bank Technician Relationship Specialty Start Date End Date Serg Garibay MD [address] [facility] [place], [place] [id number] PCP - General Family Medicine 11/23/17 Blood Or Blood Bank Technician Relationship Specialty Start Date End Date Mel Nicholas MD [address] [facility] [address] [place], [place] [id number] PCP - General Internal Medicine 12/19/22 Blood Or Blood Bank Technician Relationship Specialty Start Date End Date Mel Nicholas MD [address] [facility] [address] [place], [place] [id number] PCP - General Internal Medicine 12/19/22 Blood Or Blood Bank Technician Relationship Specialty Start Date End Date Mel Nicholas MD [address] [facility] [address] [place], [place] [id number] PCP - General Internal Medicine 12/19/22 Blood Or Blood Bank Technician Relationship Specialty Start Date End Date Mel Nicholas MD [address] [facility] [address] [place] [address] PCP - General Internal Medicine 12/19/22 Blood Or Blood Bank Technician Relationship Specialty Start Date End Date Mel Nicholas MD [address] [facility] [address] [place], [place] [id number] PCP - General Internal Medicine 12/19/22 Blood Or Blood Bank Technician Relationship Specialty [place] [address] [place] [id number] PCP - General 04/14/19 Blood Or Blood Bank Technician Relationship Specialty [place] [address] [place] [id number] PCP - General 04/14/19 Blood Or Blood Bank Technician Relationship Specialty Start Date End Date Serg Garibay MD [address] [place] [id number] PCP - General 04/14/19 Blood Or Blood Bank Technician Relationship Specialty Start Date End Date Serg Garibay MD [address] [place] [id number] PCP - General 04/14/19 Blood Or Blood Bank Technician Relationship Specialty Start Date End Date Radha Dudley MD [address] [place], [place] [id number] PCP - General Internal Medicine 03/05/24 Blood Or Blood Bank Technician Relationship Specialty Start Date End Date Serg Garibay MD [address] [place] [id number] PCP - General 04/14/19 Source Comments (unrecognize d section and content) In the event this informatio n is protected by the Federal Confidentiality of Alcohol and Drug Abuse Patient Records regulations: The Federal rules restrict any use of the information to criminally investigate or prosecute any alcohol or drug abuse patient.[facility] the event this information is protected by the Federal Confidentiality of Alcohol and Drug Abuse Patient Records regulations: The Federal rules restrict any use of the information to criminally investigate or prosecute any alcohol or drug abuse patient.[facility] the event this information is protected by the Federal Confidentiality of Alcohol and Drug Abuse Patient Records regulations: The Federal rules restrict any use of the information to criminally investigate or prosecute any alcohol or drug abuse patient.[facility] the event this information is protected by the Federal Confidentiality of Alcohol and Drug Abuse Patient Records regulations: The Federal rules restrict any use of the information to criminally investigate or prosecute any alcohol or drug abuse patient.[facility] the event this information is protected by the Federal Confidentiality of Alcohol and Drug Abuse Patient Records regulations: The Federal rules restrict any use of the information to criminally investigate or prosecute any alcohol or drug abuse patient.[facility] the event this information is protected by the Federal Confidentiality of Alcohol and Drug Abuse Patient Records regulations: The Federal rules restrict any use of the information to criminally investigate or prosecute any alcohol or drug abuse patient.[facility] the event this information is protected by the Federal Confidentiality of Alcohol and Drug Abuse Patient Records regulations: The Federal rules restrict any use of the information to criminally investigate or prosecute any alcohol or drug abuse patient.[facility] the event this information is protected by the Federal Confidentiality of Alcohol and Drug Abuse Patient Records regulations: The Federal rules restrict any use of the information to criminally investigate or prosecute any alcohol or drug abuse patient.[facility] the event this information is protected by the Federal Confidentiality of Alcohol and Drug Abuse Patient Records regulations: The Federal rules restrict any use of the information to criminally investigate or prosecute any alcohol or drug abuse patient.[facility] the event this information is protected by the Federal Confidentiality of Alcohol and Drug Abuse Patient Records regulations: The Federal rules restrict any use of the information to criminally investigate or prosecute any alcohol or drug abuse patient.[facility] Hospital[facility] the event this information is protected by the Federal Confidentiality of Alcohol and Drug Abuse Patient Records regulations: The Federal rules restrict any use of the information to criminally investigate or prosecute any alcohol or drug abuse patient.[facility] Hospital[facility] the event this information is protected by the Federal Confidentiality of Alcohol and Drug Abuse Patient Records regulations: The Federal rules restrict any use of the information to criminally investigate or prosecute any alcohol or drug abuse patient.[facility] Hospital[facility] the event this information is protected by the Federal Confidentiality of Alcohol and Drug Abuse Patient Records regulations: The Federal rules restrict any use of the information to criminally investigate or prosecute any alcohol or drug abuse patient.[facility] FOR RECORDS PERTAINING TO PATIENTS WHO ARE OR HAVE BEEN ENROLLED IN A CHEMICAL DEPENDENCY/SUBSTANCEABUSE PROGRAM, SOME INFORMATION MAY BE OMITTED. This clinical summary was aggregated from multiple sources. Caution should be exercised in using it in the provision of clinical care. This summary normalizes information from multiple sources, and as a consequence, information in this document may materially change the coding, format and clinical context of patient data. In addition, data may be omitted in some cases. CLINICAL DECISIONS SHOULD BE BASED ON THE PRIMARY CLINICAL RECORDS. [facility] [employer] [facility]. provides no warranty or guarantee of the accuracy or completeness of information in this document.
--- NOTE | 2025-05-16 17:30 | RAD_ITS ---
PROCEDURE: ANKLE MIN 3 VIEWS 05/16/2025 REASON FOR EXAM: INJURY/PAIN TECHNIQUE: ANKLE MIN 3 VIEWS COMPARISON: None RAD/Ankle min 3 Views IMPRESSION: No acute fracture or dislocation. No significant degenerative changes. Scatte red sclerosis versus sclerotic lesions throughout the distal tibia and fibula and calcaneus. No acute soft tissue abnormalities. No radiographic foreign body. Reading Location: [facility]
[2025-05-16 19:44] VITALS: BP 135/94; PULSE 113; RESP 16; TEMP 36.8; O2SAT 100
== END 2025-05-16 19:49 | disposition home or self-care (01) ==
PROVIDERS: Emergency Provider Emergency Medicine; Visit Provider Emergency Medicine
DX: S93.401A Sprain of unspecified ligament of right ankle, initial encounter (principal); X50.0XXA Overexertion from strenuous movement or load, initial encounter; F90.9 Attention-deficit hyperactivity disorder, unspecified type; Z79.899 Other long term (current) drug therapy
CPT/HCPCS: 73610; 99283